=== PATIENT | female | born 1940 | race Caucasian/White ===

== ENCOUNTER 2018-04-11 15:26 | Outpatient (CLI) | payer MEDICARE, OTHER ==
[~2018-04-11] VITALS: Ht 157.5 cm; Wt 110.2 kg
[~2018-04-11 15:26] MED LIST: MECL25TA3 PO
[2018-04-11] MEDS ORDERED: PANT40TA3 PO (15:46)
[2018-04-11] MEDS ORDERED: LISI40TA PO (15:46)
[2018-04-11] MEDS ORDERED: GLIM2TAB PO ×2 (15:46)
[2018-04-11] MEDS ORDERED: ACYC400T PO (15:46)
[2018-04-11] MEDS ORDERED: LIFI1DRO OU (15:46)
[2018-04-11] MEDS ORDERED: MONT10TA24 PO (15:46)
[2018-04-11] MEDS ORDERED: BUSP15TA60 PO (15:46)
[2018-04-11] MEDS ORDERED: RT-ALBUINH IH (15:46)
[2018-04-11] MEDS ORDERED: LEVO100T7 PO (15:46)
[2018-04-11] MEDS ORDERED: SUCR1TAB PO (15:46)
== END 2018-04-11 15:50 ==
LOC: PREOP 15:26
PROVIDERS: ATTEND Surgery
DX: Z01.818 Encounter for other preprocedural examination (principal); Z12.11 Encounter for screening for malignant neoplasm of colon; Z86.010 Personal history of colon polyps; K21.9 Gastro-esophageal reflux disease without esophagitis

== ENCOUNTER 2018-04-12 09:41 | Day surgery (SDC) | payer MEDICARE, OTHER ==
--- NOTE | 2018-04-11 16:47 | History & Physical-Surgical ---
HPO-Surgical History of Present Illness Chief Complaint: This is a 78 year old female who was referred over to us for reflux as well as a history of a hiatal hernia. She reports that she has had symptoms of reflux for years as well as the hiatal hernia. She reports that she has been on Protonix and carafate as well as gaviscon but reports that she will still have symptoms such as epigastric discomfort/pressure sensation, nausea, reflux. She reports that she does try and follow a diet because she is also allergic to numerous things. She reports that she had an upper endoscopy years ago and that was when she was told about her hiatal hernia. She reports that since that time she has had a CT scan in which she reports she was told she had a large hiatal hernia. She also reports a history of colon polyps and her last colonoscopy was several years ago. She denies any family history of colon cancer as well as no red blood per rectum. She does report episodes of diarrhea but reports she has a history of IBS. She also reports that she is overweight and has thought about bariatric surgery. Diagnosis/Surgical Indication: Reflux, Screening colonoscopy, history of polyps. Procedure: EGD and Screening Colonoscopy Date of Surgery: April 12, 2018 Weight (Pounds): 243 Height (Feet): 5 Height (Inches): 2 Allergies and Home Medications Allergies Coded Allergies: Cephalosporins (Unverified Allergy, Unknown, 02/10/15) Iodinated Contrast Media - IV Dye (Unverified Allergy, Unknown, 02/10/15) Sulfa (Sulfonamide Antibiotics) (Unverified Allergy, Unknown, 02/10/15) ampicillin (Unverified Allergy, Unknown, 02/10/15) aspirin (Unverified Allergy, Unknown, 02/10/15) codeine (Unverified Allergy, Unknown, 02/10/15) duloxetine (Unverified Allergy, Unknown, 02/10/15) erythromycin base (Unverified Allergy, Unknown, 02/10/15) ezetimibe (Unverified Allergy, Unknown, 02/10/15) latex (Unverified Allergy, Unknown, 02/10/15) methohexital (Unverified Allergy, Unknown, 02/10/15) nickel (Unverified Allergy, Unknown, 02/10/15) simvastatin (Unverified Allergy, Unknown, 02/10/15) Home Medications Acyclovir 400 Mg Tablet, 400 MG PO BID, (Reported) Albuterol Sulfate 1 Puff Puff, 2 PUFF IH Q4H PRN for SHORTNESS OF BREATH, ( Reported) 1 PUFF = 90 MCG Buspirone HCl Unknown Strength Tablet, 20 MG PO DAILY, (Reported) Glimepiride 2 Mg Tablet, 2 MG PO DAILY, (Reported) Glimepiride 2 Mg Tablet, 4 MG PO HS, (Reported) take 2 (2mg) tabs Levothyroxine Sodium 100 Mcg Tablet, 100 MCG PO DAILY, (Reported) Lifitegrast 1 Each Droperette, 1 DROP OU BID, (Reported) Lisinopril 40 Mg Tablet, 40 MG PO DAILY, (Reported) Meclizine HCl 25 Mg Tablet, 25 MG PO QID PRN for DIZZINESS Prescribed by: RACHEL CATALAN on 01/03/16 0920 Montelukast Sodium 10 Mg Tablet, 10 MG PO DAILY, (Reported) Pantoprazole Sodium 40 Mg Tablet.dr, 40 MG PO DAILY, (Reported) Sucralfate 1 Gm Tablet, 1 GM PO QID, (Reported) Patient Home Medication List Home Medication List Reviewed: Yes Past Qpoqypr-Sbblll-Hkyfqg Hx Patient Social History Alcohol Use: Denies Use Smoking Status: Never a Smoker Immunizations Up To Date Tetanus Booster (TDap): Less than 5yrs Date of Influenza Vaccine: Aug 14, 2014 Surgeries Cardiac, Eye Surgery, Gallbladder, Hysterectomy, Tonsillectomy Cardiovascular Coronary Artery Disease, Heart Murmur, Hypertension, Valvular Heart Disease Neurological Traumatic Brain Injury Gastrointestinal Gastroesophageal Reflux, Hiatal Hernia Musculoskeletal Arthritis Endocrine Endocrine Disorders: Diabetes, Non-Insulin dep Cancer Uterine Family Medical History Significant Family History: Heart Disease Exam Vital Signs Capillary Refill : General Appearance: Alert, Oriented X3, Cooperative, No Acute Distress HEENT: Atraumatic, PERRLA, EOMI, Mucous Memb Moist/[place] Respiratory: Clear to Auscultation, Normal Air Movement Cardiovascular: Regular Rate, No Murmurs Abdominal: Normal Bowel Sounds, Soft, No Tenderness, No Hepatosplenomegaly, No Masses Extremities: No Clubbing, No Cyanosis, No Edema, Normal Pulses, No Tenderness/ Swelling Skin: No Rashes, No Breakdown, No Significant Lesion Neuro: Normal Gait, Normal Speech Psych/Mental Status: Mental Status NL, Mood NL Assessment/Plan Assessment and Plan A 78 year old female with Reflux as well as a history of a hiatal hernia and colon polyps who is in need of an EGD and screening colonoscopy. The risks, benefits, and home care instructions were explained to the patient. Patient verbalized understanding of instructions and agreed to proceed as planned. It was also discussed with patient about possible hiatal hernia repair with antireflux procedure vs a bariatric procedure. It was explained to patient that first we would proceed with the upper and lower endoscopy and if she has a hiatal hernia of significant size then we would need to proceed with an esophageal manometry and then at that time we could discuss the best plan for her should she need surgical intervention. Patient verbalized understanding and at this time we will proceed with an EGD and a screening colonoscopy. Copy Copies To 1: DEEPA CORDERO MD; KM MARINO MD, DUSTIN L APRN April 11, 2018 4:47 pm
[~2018-04-12] VITALS: Ht 157.5 cm; Wt 110.2 kg
[~2018-04-12 09:41] MED LIST changes: +ACYC400T PO; +BUSP15TA60 PO; +GLIM2TAB PO; +LEVO100T7 PO; +LIFI1DRO OU; +LISI40TA PO; +MONT10TA24 PO; +PANT40TA3 PO; +RT-ALBUINH IH; +SUCR1TAB PO
--- OUTSIDE RECORDS SUMMARY | 2018-04-12 09:44 | XMS REPORT | Clinical Summary ---
Author Author [facility] Organization [facility] Address Unknown Phone Unavailable Care Team Providers Care Car Construction Superintendent Name Role Phone Unverified, Unverified Md PCP Unavailable Ayse Yoo DO Unavailable Source Comments Some departments are not documenting in the electronic medical record. If you do not see the information that you expected, contact Release of Information in the Health Information Management department at [phone] for further assistance in locating additional records.[facility] Allergies Active Allergy Reactions Severity Noted Date Comments Adhesive UNKNOWN 11/29/2012 Ampicillin UNKNOWN 11/29/2012 Methohexital UNKNOWN 11/29/2012 Cephalosporins UNKNOWN 11/29/2012 Codeine UNKNOWN 11/29/2012 Iodinated Contrast- Oral UNKNOWN 11/29/2012 And Iv Dye Duloxetine UNKNOWN 11/29/2012 Erythromycin UNKNOWN 11/29/2012 Latex UNKNOWN 11/29/2012 Nickel UNKNOWN 11/29/2012 Simvastatin UNKNOWN 11/29/2012 Sulfa (Sulfonamide UNKNOWN 11/29/2012 Antibiotics) Ezetimibe UNKNOWN 11/29/2012 Current Medications Prescription Sig. Disp. Refills Start End Date Status Date albuterol (VENTOLIN HFA, Inhale 2 Puffs by mouth Active PROAIR HFA) 90 every 6 hours as needed. mcg/actuation inhaler albuterol-ipratropium Inhale 3 mL solution as Active (DUONEB) 0.5 mg-3 mg(2.5 directed four times mg base)/3 mL nebulizer daily. solution busPIRone (BUSPAR) 10 mg Take 10 mg by mouth three Active tablet times daily. cholecalciferol (Vitamin Take 1,000 Units by mouth Active D3) (VITAMIN D-3) 1,000 daily. units tablet COLESEVELAM HCL Take 3 Tabs by mouth Active (COLESEVELAM PO) twice daily. fluticasone-salmeterol Inhale 1 Puff by mouth Active (ADVAIR DISKUS) 250-50 daily. mcg inhalation disk fluticasone-salmeterol Inhale 1 Puff by mouth Active (ADVAIR DISKUS) 500-50 every 12 hours. mcg inhalation disk HYOSCYAMINE SULFATE Take 0.125 mg by mouth as Active (HYOSYNE PO) Needed. 1-2 tabs levothyroxine Take 100 mcg by mouth Active (LEVOTHROID) 100 mcg daily. tablet lisinopril (PRINIVIL, Take 40 mg by mouth Active ZESTRIL) 40 mg tablet daily. metFORMIN (GLUCOPHAGE) Take 250 mg by mouth Active 500 mg tablet twice daily with meals. montelukast (SINGULAIR) Take 10 mg by mouth at Active 10 mg tablet bedtime daily. Omalizumab (XOLAIR) 150 Inject 300 mg into Active mg SolR area(s) as directed every [address] Take 40 mg by mouth Active (PROTONIX) 40 mg tablet daily. sucralfate (CARAFATE) 1 Take 1 g by mouth every 6 Active gram tablet hours. Active Problems Problem Noted Date Asthma 11/29/2012 Atopic dermatitis 11/29/2012 Allergic rhinitis 11/29/2012 Family History Medical History Relation Name Comments Coronary Artery Disease Brother Coronary Artery Disease Father Cancer Mother lung cancer Relation Name Status Comments Brother Father Mother Social History Tobacco Use Types Packs/Day Years Used Date Never Smoker Alcohol Use Drinks/Week oz/Week Comments No Sex Assigned at Date Recorded Not on file Last Filed Vital Signs Vital Sign Reading Time Taken Blood Pressure 124/64 11/29/2012 1:28 PM CHART CHANGER Pulse 87 11/29/2012 1:28 PM CHART CHANGER Temperature 36.7 C (98 F) 11/29/2012 1:28 PM CHART CHANGER Respiratory Rate 18 11/29/2012 1:28 PM CHART CHANGER Oxygen Saturation 96% 11/29/2012 1:28 PM CHART CHANGER Inhaled Oxygen - - Concentration Weight 117.5 kg (259 lb) 11/29/2012 1:28 PM CHART CHANGER Height 154.9 cm (5' 1") 11/29/2012 1:28 PM CHART CHANGER Body Mass Index 48.94 11/29/2012 1:28 PM CHART CHANGER Plan of Treatment Health Maintenance Due Date Last Done Comments PHYSICAL (COMPREHENSIVE) 1947 EXAM PERTUSSIS VACCINE 1953 TETANUS VACCINE 1959 SHINGLES VACCINE 2002 OSTEOPOROSIS SCREENING 2007 PNEUMONIA (PCV13/PPSV23) 2007 VACCINES (1 of 2 - PCV13) INFLUENZA VACCINE 08/14/2018 Results Not on filefrom Last 3 Months
--- OUTSIDE RECORDS SUMMARY | 2018-04-12 09:44 | XMS REPORT ---
Author Author LELE PORTILLO Organization [employer] Address Unknown Phone Unavailable Care Team Providers Care Director Of Student Life Name Role Phone LELE PORTILLO Unavailable Allergies No Known Allergies Problems Problem Type Condition Code Onset Dates Condition Status Problem Major depressive disorder, recurrent episode, moderate F33.1 Active Assessment Generalized anxiety disorder F41.1 Active Problem Generalized anxiety disorder F41.1 Active Assessment Major depressive disorder, recurrent episode, moderate F33.1 Active Medications No Known Medications Procedures Procedure Coding System Code Date Psychotherapy, patient &/family, 45 minutes, established patient CPT-4 75105 March 15, 2016 [facility] VISIT MENTAL HEALTH ESTAB PT CPT-4 G0470 March 15, 2016 Results No Known Results Summary Purpose [employer] Submission
--- OUTSIDE RECORDS SUMMARY | 2018-04-12 09:44 | XMS REPORT ---
Author Author LELE PORTILLO Organization [employer] Address Unknown Phone Unavailable Care Team Providers Care Escape Wheel Tooth Cutter Name Role Phone LELE PORTILLO Unavailable Allergies [...] patient &/family, 45 minutes, established patient CPT-4 69376 Jun 28, 2016 [facility] VISIT MENTAL HEALTH ESTAB PT CPT-4 G0470 Jun 28, 2016 Results No Known Results Summary Purpose [employer] Submission
--- OUTSIDE RECORDS SUMMARY | 2018-04-12 09:44 | XMS REPORT ---
Author Author LELE PORTILLO Organization [employer] Address Unknown Phone Unavailable Care Team Providers Care Clinical Writer Name Role Phone LELE PORTILLO Unavailable Allergies [...] patient &/family, 45 minutes, established patient CPT-4 32347 March 01, 2016 [facility] VISIT MENTAL HEALTH ESTAB PT CPT-4 G0470 March 01, 2016 Results No Known Results Summary Purpose [employer] Submission
--- OUTSIDE RECORDS SUMMARY | 2018-04-12 09:45 | XMS REPORT | Continuity of Care Document ---
Author Author [facility] Organization [facility] Address Unknown Phone Unavailable Allergies Active Description Code Type Severity Reaction Onset Reported/Identified Relationship to Patient Clinical Status Yes CODEINE SULFATE UNKNOWN UNKNOWN Yes HEXACHLOROPHENE ANALOGUES UNKNOWN UNKNOWN Yes KEFLEX UNKNOWN UNKNOWN Yes PENICILLINS UNKNOWN UNKNOWN Yes [id number] REDUCTASE INHIBITORS UNKNOWN OTHER Yes SULFA (SULFONAMIDE ANTIBIOTICS) UNKNOWN UNKNOWN Yes ampicillin [id number] Drug Allergy Unknown N/A 02/10/2015 Yes aspirin [id number] Drug Allergy Unknown N/A 02/10/2015 Yes Cephalosporins [id number] Drug Allergy Unknown N/A 02/10/2015 Yes codeine [id number] Drug Allergy Unknown N/A 02/10/2015 Yes duloxetine [id number] Drug Allergy Unknown N/A 02/10/2015 Yes erythromycin base [id number] Drug Allergy Unknown N/A 02/10/2015 Yes ezetimibe [id number] Drug Allergy Unknown N/A 02/10/2015 Yes Iodinated Contrast Media - IV Dye [id number] Drug Allergy Unknown N/A 02/10 Yes Iodinated Contrast- Oral and IV Dye [id number] Drug Allergy Unknown N/A Yes latex [id number] Drug Allergy Unknown N/A 02/10/2015 Yes methohexital [id number] Drug Allergy Unknown N/A 02/10/2015 Yes nickel [id number] Drug Allergy Unknown N/A 02/10/2015 Yes simvastatin [id number] Drug Allergy Unknown N/A 02/10/2015 Yes Sulfa (Sulfonamide Antibiotics) [id number] Drug Allergy Unknown N/A 2014 Medications There is no data. Problems Date Dx Coded Attending Type Code Diagnosis Diagnosed By 02/10/2015 HUMPHREY CHESTER, KIRA Scherer Ot 414.00 02/10/2015 KIRA YIN MD Ot 424.1 02/10/2015 HUMPHREY CHESTER, KIRA Scherer Ot 786.09 02/10/2015 HUMPHREY CHESTER, KIRA Scherer Ot 786.50 02/10/2015 LEANDRA CHESTER, BRIANA Schaefer Ot 414.01 02/10/2015 LEANDRA CHESTER, BRIANA T Ot 723.0 02/10/2015 LEANDRA CHESTER, BRIANA T Ot 724.1 02/10/2015 LEANDRA CHESTER, BRIANA T Ot 786.59 10/11/2015 JAMILA CHESTER, KM L Ot G47.33 10/11/2015 JAMILA CHESTER, KM L Ot G47.61 01/03/2016 HOSSEIN CHESTER, RACHEL Beltran Ot H83.09 01/03/2016 HOSSEIN CHESTER, RACHEL A Ot J01.80 01/03/2016 HOSSEIN CHESTER, RACHEL A Ot R42 04/21/2017 KM MARINO 723.1 CERVICALGIA 04/21/2017 KM MARINO 723.4 BRACHIAL NEURITIS OR RADICULITIS NOS 04/21/2017 KM MARINO M54.12 RADICULOPATHY, CERVICAL REGION 04/21/2017 KM MARINO M54.2 CERVICALGIA 02/15/2018 KM MARINO 250.00 DIABETES MELLITUS WITHOUT MENTION OF COMPLICATION, TYPE II OR UNSPECIFIED TYPE , NOT STATED UNCONTROLLED 02/15/2018 KM MARINO 401.0 MALIGNANT ESSENTIAL HYPERTENSION 02/15/2018 KM MARINO E11.9 TYPE 2 DIABETES MELLITUS WITHOUT COMPLICATIONS 02/15/2018 KM MARINO I10 ESSENTIAL (PRIMARY) HYPERTENSION 02/15/2018 KM MARINO V70.0 ROUTINE GENERAL MEDICAL EXAMINATION AT A HEALTH CARE FACILITY 02/15/2018 KM MARINO Z00.00 ENCOUNTER FOR GENERAL ADULT MEDICAL EXAMINATION WITHOUT ABNORMAL FINDINGS 02/15/2018 KM MARINO 250.00 DIABETES MELLITUS WITHOUT MENTION OF COMPLICATION, TYPE II OR UNSPECIFIED TYPE , NOT STATED UNCONTROLLED 02/15/2018 KM MARINO 401.0 MALIGNANT ESSENTIAL HYPERTENSION 02/15/2018 KM MARINO E11.9 TYPE 2 DIABETES MELLITUS WITHOUT COMPLICATIONS 02/15/2018 KM MARINO I10 ESSENTIAL (PRIMARY) HYPERTENSION 02/15/2018 KM MARINO V70.0 ROUTINE GENERAL MEDICAL EXAMINATION AT A HEALTH CARE FACILITY 02/15/2018 KM MARINO Z00.00 ENCOUNTER FOR GENERAL ADULT MEDICAL EXAMINATION WITHOUT ABNORMAL FINDINGS 02/15/2018 KM MARINO 250.00 DIABETES MELLITUS WITHOUT MENTION OF COMPLICATION, TYPE II OR UNSPECIFIED TYPE , NOT STATED UNCONTROLLED 02/15/2018 KM MARINO 401.0 MALIGNANT ESSENTIAL HYPERTENSION 02/15/2018 KM MARINO E11.9 TYPE 2 DIABETES MELLITUS WITHOUT COMPLICATIONS 02/15/2018 KM MARINO I10 ESSENTIAL (PRIMARY) HYPERTENSION 02/15/2018 KM MARINO V70.0 ROUTINE GENERAL MEDICAL EXAMINATION AT A HEALTH CARE FACILITY 02/15/2018 KM MARINO Z00.00 ENCOUNTER FOR GENERAL ADULT MEDICAL EXAMINATION WITHOUT ABNORMAL FINDINGS Procedures There is no data. Results Test Result Range Comprehensive Metabolic Panel - 12/13/16 10:50 Albumin 4.1 g/dL 3.6-5.1 ALP 64 U/L 35-130 ALT 19 U/L 6-45 Anion Gap 16 6-14 AST 16 U/L 2-40 BUN 21 mg/dL 5-25 Calcium 9.2 mg/dL 8.3-10.4 Chloride 108 mmol/L 95-114 CO2 24 mEq/L 22-33 Creat 1.00 mg/dL 0.50-1.50 eGFR 54 mL/min/1.73m2 >59 Globulin 2.4 g/dL 2.3-3.5 Glucose 120 mg/dL 70-110 Osmo 299 280-295 Potassium 4.5 mmol/L 3.5-5.3 Sodium 143 mmol/L 134-148 TBil 0.5 mg/dL 0.2-1.2 TP 6.5 g/dL 6.0-8.3 Thyroid Stimulating Hormone - 06/13/17 10:25 TSH 1.07 mIU/mL 0.32-5.00 Microalbumin - 02/15/18 10:00 Microalb 29.0 mg/L 0.0-20.0 Encounters ACCT No. Visit Date/Time Discharge Status Pt. Type Provider Facility Loc./Unit Complaint [id number] 09/07/2017 12:25:00 09/07/2017 23:59:59 CLS Preadmit ASHOK CHESTER, ZAKIYA Beaver [facility] RAD LUMBAR SPONDYLOSIS W/ RADICULOPATHY [id number] 01/03/2016 07:48:00 01/03/2016 09:23:00 DIS Emergency HOSSEIN CHESTER, RACHEL A [facility] ER [id number] 10/10/2015 21:05:00 10/11/2015 05:52:00 DIS Outpatient JAMILA CHESTER, KM Marx [facility] SLEEP [id number] 02/10/2015 07:46:00 02/10/2015 14:22:00 DIS Emergency LEANDRA CHESTER, BRIANA Schaefer [facility] ER [id number] 01/29/2014 09:46:00 01/29/2014 23:59:59 CLS Outpatient HUMPHREY CHESTER, KIRA Scherer [facility] CARD [id number] 03/27/2018 15:00:00 03/27/2018 23:59:59 CLS Outpatient LIZBETH [facility] [id number] 02/15/2018 13:31:00 02/15/2018 23:59:00 DIS Outpatient KM MARINO [id number] 10/04/2017 13:36:00 10/04/2017 23:59:00 DIS Outpatient EDWIN DE LEON [id number] 04/27/2017 00:00:00 06/14/2017 09:45:00 DIS Outpatient KM MARINO [id number] 06/13/2017 10:50:00 06/13/2017 23:59:00 DIS Outpatient KM MARINO [id number] 04/22/2017 10:38:00 04/22/2017 23:59:00 DIS Outpatient KM MARINO [id number] 12/17/2016 09:03:00 12/17/2016 23:59:00 DIS Outpatient KM MARINO [id number] 12/13/2016 13:53:00 12/13/2016 23:59:00 DIS Outpatient KM MARINO [id number] 12/03/2016 10:30:00 12/03/2016 23:59:00 DIS Outpatient Isabel Muñoz
--- OUTSIDE RECORDS SUMMARY | 2018-04-12 09:45 | XMS REPORT ---
Author Author LELE PORTILLO Organization [employer] Address Unknown Phone Unavailable Care Team Providers Care Pier Worker Name Role Phone LELE PORTILLO Unavailable Allergies No Known Allergies Problems Problem Type Condition Code Onset Dates Condition Status Problem Major depressive disorder, recurrent episode, moderate F33.1 Active Assessment Generalized anxiety disorder F41.1 Active Problem Generalized anxiety disorder F41.1 Active Assessment Major depressive disorder, recurrent episode, moderate F33.1 Active Medications No Known Medications Procedures Procedure Coding System Code Date Psychotherapy, patient &/family, 30 minutes, established patient CPT-4 69972 May 24, 2016 [facility] VISIT MENTAL HEALTH ESTAB PT CPT-4 G0470 May 24, 2016 Results No Known Results Summary Purpose [employer] Submission
[2018-04-12] MEDS ORDERED: LACTATED RINGERS 1,000 ML IV ONE (10:11)
[2018-04-12] MEDS ORDERED: MIDAZOLAM 2 MG/2 ML (VERSED) VIAL ONE (10:27)
[2018-04-12] MEDS ORDERED: PROPOFOL INJECTION 50 ML IV ONE ×2 (10:27→11:33)
[2018-04-12] MEDS ORDERED: LIDOCAINE JELLY 2% (XYLOCAINE) 5 ML TUBE ONE (11:13)
[2018-04-12] MEDS ORDERED: LACTATED RINGERS 1,000 ML IV STA (11:14)
[2018-04-12] MEDS ORDERED: LIDOCAINE JELLY 2% (XYLOCAINE) 5 ML TUBE MM PRN (11:15)
[2018-04-12 11:21] VITALS: BP 148/79
--- NOTE | 2018-04-12 11:57 | Progress Note-Pre Operative ---
Pre-Operative Progress Note H&P Reviewed The H&P was reviewed, patient examined and no changes noted. Date Seen by Provider: April 12, 2018 Time Seen by Provider: 10:30 Date H&P Reviewed: April 12, 2018 Time H&P Reviewed: 10:30 Pre-Operative Diagnosis: GERD, hx of polyps DEEPA CORDERO MD April 12, 2018 11:57 am
--- NOTE | 2018-04-12 12:02 | Progress Note-Post Operative ---
Post-Operative Progess Note Surgeon (s)/Cutter Gas (s) Surgeon DEEPA CORDERO MD Cutter Gas: none Pre-Operative Diagnosis GERD, hx of polyps Post-Operative Diagnosis reflux esophagitis(class B), HH(2cm), moderate gastritis. 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 Procedure & Operative Findings Date of Procedure 04/12/18 Procedure Performed/Findings EGD with bx. Colonoscopy with bx. Anesthesia Type MAC Estimated Blood Loss Estimated blood loss (mL): minimal Specimens/Packing Specimens Removed GE jxn, antrum, asc colon polyp x2 DEEPA CORDERO MD April 12, 2018 12:02 pm
[2018-04-12 12:05] VITALS: BP 110/60
--- NOTE | 2018-04-12 12:05 | Discharge Inst-Surgical ---
D/C Lap Instructions-KIDO New, Converted, or Re-Newed RX: RX on Chart Follow Up Appt in 2 weeks Activity as tolerated High Fiber Diet 25g or more per day Avoid Alcohol, Caffeine, Spicy [place] and Acid foods. Drink 64 fluid oz or more of fluids per day. Symptoms to Report: Fever over 101 degree F, Nausea/Vomiting If any problems/questions: Contact your physician or go to Emergency Room DEEPA CORDERO MD April 12, 2018 12:05 pm
[2018-04-12 12:35] VITALS: BP 152/64
[2018-04-12 12:46] VITALS: BP 152/64
--- NOTE | 2018-04-12 19:04 | OPERATIVE REPORT ---
DATE OF SERVICE: 04/12/2018 ATTENDING PRIMARY PHYSICIAN: Dr. Iris Olivier. PREOPERATIVE DIAGNOSES: Gastroesophageal reflux disease, dysphagia, history of colon polyps. POSTOPERATIVE DIAGNOSES: Reflux esophagitis class B, small hiatal hernia approximately 2 cm in size, moderate severity gastritis, chronic stage III external and internal hemorrhoids, two hyperplastic polyps of the ascending colon. PROCEDURE: EGD with biopsy, colonoscopy with biopsy. SURGEON: Dr. Cordero. ANESTHESIA: Monitored anesthesia care. ESTIMATED BLOOD LOSS: Minimal. FINDINGS: EGD: Reflux esophagitis class B, [id number] size hiatal hernia approximately 2 cm in size. There was a moderate gastritis. No ulcers identified. Pylorus and duodenum appeared normal with no distal obstructions. Colonoscopy: Chronic stage III external and internal hemorrhoids, which were not actively bleeding. Normal sphincter tone was felt and there were no palpable masses. DISPOSITION: The patient tolerated the procedure well. INDICATIONS: The patient is a 78-year-old female who has had multiple gastrointestinal issues in the past. She reports that she has had issues with reflux and regurgitation for many years. She reports that she accidentally ingested some form of hat cleaner many years ago and I did have an EGD at the time. She reports that after the incident, which was many years ago she does not report any major issues with dysphagia or difficulty swallowing solid foods that would indicate a stricture. She does report continued reflux; however, does have occasional episodes of epigastric fullness sensation after food bolus. She states that she was told that she had a hiatal hernia based on radiographic imaging even as recently as one year ago. She also has a history of colon polyps with the several colonoscopies done in the past, which did show polyps, however, all benign. PAST MEDICAL HISTORY: Hypertension, diabetes, degenerative joint disease, hypothyroid, gastroesophageal reflux disease, sleep apnea. PAST SURGERIES: Tonsillectomy, right eye surgery, laparoscopic cholecystectomy in 2011, total hysterectomy and appendectomy in 1998, ganglion cyst excision. ALLERGIES: AMPICILLIN, CODEINE, ERYTHROMYCIN, SIMVASTATIN, ASPIRIN, CEPHALOSPORIN, SULFA, RADIOACTIVE IODINE, CONTRAST DYES, BREVITAL, LATEX, NICKEL TAPE, ZETIA, CYMBALTA. MEDICATIONS: Buspirone 20 mg daily, levothyroxine 0.1 mg daily, lisinopril 40 mg daily, glimepiride 2 mg q.a.m. and 4 mg q.p.m., Singulair 10 mg daily, Protonix 40 mg daily, acyclovir 400 mg b.i.d., sucralfate 1 gram q.i.d., Xiidra drop b.i.d. daily, albuterol p.r.n., hyoscyamine p.r.n., Gaviscon p.r.n., Lomotil p.r.n. SOCIAL HISTORY: Negative smoke, negative alcohol. FAMILY HISTORY: Mother with a lung cancer. Father, myocardial infarction. Brother, myocardial infarction. DESCRIPTION OF PROCEDURE: The patient was brought to the endoscopy suite, laid in the left lateral decubitus position. After adequate IV pain and sedating medications and monitored anesthesia care, the mouthpiece was applied. The endoscope was then placed in the mouth visualizing the pharynx and hypopharyngeal region. Vocal cords, epiglottis and vallecula identified and appeared to be normal. Endoscope was gently intubated into the esophageal opening and esophagus insufflated. The endoscope was then advanced to the first, second and third portion of the esophagus at the level of the GE junction, a reflux esophagitis class B identified. There were no ulcers or strictures identified throughout the esophagus or the GE junction. A biopsy was taken of the GE junction with forceps with visualization of good hemostasis. The endoscope was then advanced into the stomach and endoscope retroflexed, visualizing a small to moderate size hiatal hernia approximately 2 cm in size. There was moderate severity gastritis with no ulcerations identified. A biopsy was taken of the stomach antrum with visualization of good hemostasis. The endoscope was then advanced to the pylorus and the first and second portion of the duodenum, which appeared normal with no distal obstructions. The endoscope was slowly withdrawn by taking a second look and suctioning residual air and no additional findings. The patient tolerated the procedure well. We will recommend continued medical management with the necessary lifestyle and diet accommodation including small and more frequent meals, avoidance of eating at night as well as head elevation while lying supine. She also needs to avoid caffeinated beverages, spicy, greasy and acidic foods. We will await the biopsy results as well to rule out H. pylori. If she continues to be symptomatic with reflux, she may be a candidate for hiatal hernia repair. However, due to her body habitus, there would be a high reoccurrence rate. She may benefit from a hiatal hernia repair as well as a gastric sleeve resection. Under the same anesthesia, we then proceeded with the colonoscopy portion of the procedure. A digital rectal examination was performed, which revealed chronic stage III external and internal hemorrhoids, where no active bleeding identified. Normal sphincter tone was felt and there were no palpable masses. The endoscope was then intubated. The anus and rectum gently insufflated. The endoscope was then advanced through the valves adhesed the rectum with no polyps or any neoplasms identified. We then proceeded through the sigmoid colon where no diverticulosis identified. The endoscope was then advanced to the main of the descending, transverse and ascending colon. At the proximal ascending colon, 2 small hyperplastic polyps each approximately 2 mm in size were identified. These were biopsied and started using forceps and electrocautery with visualization of good hemostasis. The endoscope was then advanced to the cecum, which was normal. The endoscope was then slowly withdrawn taking a second look and suctioning residual air with no additional findings. The patient tolerated the procedure well. We will recommend continued medical management with a high fiber diet with at least 25 grams to 30 grams of fiber per day as well as at least 64. fluid ounces of water daily to promote soft stools on a daily basis. She does not have any family history of colon cancer and these appear to be benign hyperplastic polyps. If these are confirmed by pathology, she may wait approximately 10 years for her next colonoscopy. Job ID: [id number] DocumentID: [id number] Dictated Date: 04/12/2018 12:22:41 [employer] Date: 04/12/2018 19:04:01 Dictated By: DEEPA CORDERO MD MTDC[facility]
== END 2018-04-12 13:24 | disposition home or self-care (01) ==
LOC: SDC 09:41
PROVIDERS: ATTEND Surgery
DX: Z12.11 Encounter for screening for malignant neoplasm of colon (principal); K63.5 Polyp of colon; K21.0 Gastro-esophageal reflux disease with esophagitis; K44.9 Diaphragmatic hernia without obstruction or gangrene; K29.70 Gastritis, unspecified, without bleeding; K64.2 Third degree hemorrhoids; I10 Essential (primary) hypertension; E11.9 Type 2 diabetes mellitus without complications; E03.9 Hypothyroidism, unspecified; G47.33 Obstructive sleep apnea (adult) (pediatric); I25.10 Atherosclerotic heart disease of native coronary artery without angina pectoris; J45.909 Unspecified asthma, uncomplicated; Z79.84 Long term (current) use of oral hypoglycemic drugs; Z79.899 Other long term (current) drug therapy; Z87.820 Personal history of traumatic brain injury
CPT/HCPCS: 43239; G0105; 82962; 88305

== ENCOUNTER 2019-06-11 19:27 | Emergency (ER) | payer MEDICARE, OTHER ==
[~2019-06-11] VITALS: Ht 157.5 cm; Wt 110.2 kg
[2019-06-11] MEDS ORDERED: ACETAMINOPHEN 325 MG TABLET PO ONE (19:45)
--- NOTE | 2019-06-11 19:50 | ED Chest Pain ---
General Stated Complaint: CP History of Present Illness Date Seen by Provider: Jun 11, 2019 Time Seen by Provider: 19:30 Initial Comments 79-year-old female presents with substernal chest, shortness of air with exertion and history of asthma, over the last 2-3 days, intermittently, Currently rates her pain 3/10. She has had previous heart catheterizations but no sense of been placed no history of LA. She is allergic to aspirin. She has a significant family history for MIs and stent placement. She denies any nausea or vomiting, diaphoresis or weakness. She is a type II diabetic her glucose was in the 90s yesterday. 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: No Associated Symptoms: No back pain, No diaphoresis, No dizziness, No edema; fatigue; No fever/chills, No headache, No heartburn, No nausea/vomiting, No rash; shortness of breath; No swelling/lump in chest, No syncope, No weakness Allergies and Home Medications Allergies Coded Allergies: Cephalosporins (Unverified Allergy, Unknown, 02/10/15) Iodinated Contrast- Oral and IV Dye (Unverified Allergy, Unknown, 02/10/15) Sulfa (Sulfonamide Antibiotics) (Unverified Allergy, Unknown, 02/10/15) ampicillin (Unverified Allergy, Unknown, 02/10/15) aspirin (Unverified Allergy, Unknown, 02/10/15) codeine (Unverified Allergy, Unknown, 02/10/15) duloxetine (Unverified Allergy, Unknown, 02/10/15) erythromycin base (Unverified Allergy, Unknown, 02/10/15) ezetimibe (Unverified Allergy, Unknown, 02/10/15) latex (Unverified Allergy, Unknown, 02/10/15) methohexital (Unverified Allergy, Unknown, 02/10/15) nickel (Unverified Allergy, Unknown, 02/10/15) simvastatin (Unverified Allergy, Unknown, 02/10/15) Home Medications Acyclovir 400 Mg Tablet, 400 MG PO BID, (Reported) Albuterol Sulfate 1 Puff Puff, 2 PUFF IH Q4H PRN for SHORTNESS OF BREATH, (R eported) 1 PUFF = 90 MCG Buspirone HCl Unknown Strength Tablet, 20 MG PO DAILY, (Reported) Glimepiride 2 Mg Tablet, 2 MG PO DAILY, (Reported) Glimepiride 2 Mg Tablet, 4 MG PO HS, (Reported) take 2 (2mg) tabs Levothyroxine Sodium 100 Mcg Tablet, 100 MCG PO DAILY, (Reported) Lifitegrast 1 Each Droperette, 1 DROP OU BID, (Reported) Lisinopril 40 Mg Tablet, 40 MG PO DAILY, (Reported) Meclizine HCl 25 Mg Tablet, 25 MG PO QID PRN for DIZZINESS Prescribed by: RACHEL CATALAN on 01/03/16 0920 Montelukast Sodium 10 Mg Tablet, 10 MG PO DAILY, (Reported) Pantoprazole Sodium 40 Mg Tablet.dr, 40 MG PO DAILY, (Reported) Sucralfate 1 Gm Tablet, 1 GM PO QID, (Reported) Patient Home Medication List Home Medication List Reviewed: Yes Review of Systems Review of Systems Constitutional: no symptoms reported, see HPI Respiratory: See HPI, SOA With Exertion Gastrointestinal: See HPI; Denies Diarrhea, Denies Nausea, Denies Poor Appetite Skin: no symptoms reported, see HPI All Other Systems Reviewed Negative Unless Noted: Yes Past Yctwfgt-Opezeo-Xslaib Hx Past Med/Social Hx: Reviewed Nursing Past Med/Soc Hx Patient Social History Recent Foreign Travel: No Contact w/Someone Who Travel: No Recent Hopitalizations: No Immunizations Up To Date Tetanus Booster (TDap): Less than 5yrs Date of Influenza Vaccine: Aug 14, 2014 Seasonal Allergies Seasonal Allergies: Yes Past Medical History Adenoidectomy, Appendectomy, Cardiac, Eye Surgery, Gallbladder, Hysterectomy, Tonsillectomy Asthma, Sleep Apnea Currently Using CPAP: Yes Coronary Artery Disease, Heart Murmur, Hypertension, Valvular Heart Disease Traumatic Brain Injury [employer]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 0.0oz. 110.759515mt; 44.4 BMI Method:Stated General Appearance: No Apparent Distress, WD/WN, Obese HEENT: PERRL/EOMI, TMs Normal, Normal ENT Inspection, Pharynx Normal, Moist Mucous Membranes Neck: Full Range of Motion, Normal Inspection, Non Tender, Supple Respiratory: Chest Non Tender, Lungs Clear, Normal Breath Sounds Cardiovascular: Regular Rate, Rhythm, No Edema, No Murmur, Normal Peripheral Pulses Gastrointestinal: Normal Bowel Sounds, Non Tender, Soft Extremity: Normal Capillary Refill, Normal Inspection, Normal Range of Motion, No Calf Tenderness Neurologic/Psychiatric: Alert, Oriented x3, No Motor/Sensory Deficits, Normal Mood/Affect Skin: Normal Color, Warm/Dry Lymphatic: No Adenopathy Progress/Results/Core Measures Results/Orders Lab Results Laboratory Tests Test 06/11/19 19:47 Range/Units White Blood Count 6.6 4.3-11.0 10^3/uL Red Blood Count 5.14 4.35-5.85 10^6/uL Hemoglobin 13.8 11.5-16.0 G/DL Hematocrit 44 35-52 % Mean Corpuscular Volume 85 80-99 FL Mean Corpuscular Hemoglobin 27 25-34 PG Mean Corpuscular Hemoglobin Concent 32 32-36 G/DL Red Cell Distribution Width 14.4 10.0-14.5 % Platelet Count 163 130-400 10^3/uL Mean Platelet Volume 10.3 7.4-10.4 FL Neutrophils (%) (Auto) 66 42-75 % Lymphocytes (%) (Auto) 20 12-44 % Monocytes (%) (Auto) 10 0-12 % Eosinophils (%) (Auto) 3 0-10 % Basophils (%) (Auto) 1 0-10 % Neutrophils # (Auto) 4.3 1.8-7.8 X 10^3 Lymphocytes # (Auto) 1.3 1.0-4.0 X 10^3 Monocytes # (Auto) 0.7 0.0-1.0 X 10^3 Eosinophils # (Auto) 0.2 0.0-0.3 10^3/uL Basophils # (Auto) 0.1 0.0-0.1 10^3/uL Prothrombin Time 12.5 12.2-14.7 SEC INR Comment 0.9 0.8-1.4 Activated Partial Thromboplast Time 28 24-35 SEC Sodium Level 141 135-145 MMOL/L Potassium Level 4.0 3.6-5.0 MMOL/L Chloride Level 105 98-107 MMOL/L Carbon Dioxide Level 23 21-32 MMOL/L Anion Gap 13 5-14 MMOL/L Blood Urea Nitrogen 19 H 7-18 MG/DL Creatinine 0.89 0.60-1.30 MG/DL Estimat Glomerular Filtration Rate > 60 BUN/Creatinine Ratio 21 Glucose Level 105 70-105 MG/DL Calcium Level 9.9 8.5-10.1 MG/DL Corrected Calcium 9.7 8.5-10.1 MG/DL Magnesium Level 2.2 1.8-2.4 MG/DL Total Bilirubin 0.6 0.1-1.0 MG/DL Aspartate Amino Transf (AST/SGOT) 15 5-34 U/L Alanine Aminotransferase (ALT/SGPT) 16 0-55 U/L Alkaline Phosphatase 62 40-136 U/L Myoglobin 47.6 10.0-92.0 NG/ML Troponin I < 0.028 <0.028 NG/ML Total Protein 6.9 6.4-8.2 GM/DL Albumin 4.2 3.2-4.5 GM/DL My Orders Orders - JOHNNY MATHEWS Cbc With Automated Diff (06/11/19 19:44) Magnesium (06/11/19 19:44) Ekg Tracing (06/11/19 19:44) Cardiac Profile 1 (06/11/19 19:44) Comprehensive Metabolic Panel (06/11/19 19:44) Myoglobin Serum (06/11/19 19:44) Protime With Inr (06/11/19 19:44) Partial Thromboplastin Time (06/11/19 19:44) O2 (06/11/19 19:44) Monitor-Rhythm Ecg Trace Only (06/11/19 19:44) Ed Iv/Invasive Line Start (06/11/19 19:44) Chest Pa/Lat (2 View) (06/11/19 19:44) Acetaminophen Tablet/Caplet (Tylenol T (06/11/19 19:45) Progress Progress Note : Time: 19:30 Progress Note She was seen and evaluated, will obtain labs, EKG, chest x-ray and Tylenol 650 mg orally. She cannot take aspirin. She did see Dr. 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 2015 patient reports her symptoms are improving, reviewed labs, cxr, and EKG with her and reassured that they do not indicate an acute cardiac event. 2054 Temp 97.6. Patient denies chest pain or SOA. Discharge instructions and return precautions reviewed with the patient. She will keep her cardiology appointment tomorrow. Initial ECG Impression Date: Jun 11, 2019 Initial ECG Impression Time: 19:35 Initial ECG Rate: 84 Initial ECG Rhythm: Normal Sinus Initial ECG Intervals WA 180, QRSD 148, QT 436, QTC 516. [place] P 69, QRS -74, T 74. Initial ECG Impression: Normal Initial ECG Comparisson: Unchanged (from 2014) Departure Impression Primary Impression: Non-cardiac chest pain Disposition: HOME, SELF-CARE Condition: Improved Departure-Patient Inst. Decision time for Depature: 20:55 Referrals: KM MARINO MD (PCP/Family) Primary Care Physician Patient Instructions: Chest Pain That Is Not Caused by the Heart (DC) Add. Discharge Instructions: Keep your scheduled appointment with cardiology for tomorrow. Take records from [facility]. Activity as tolerated. Continue your home medications. Return to emergency department for chest pain, difficulty breathing, or new urgent concerns. Copy Copies To 1: KM MARINO MD, AMY ARNP Jun 11, 2019 19:50
[2019-06-11 19:56] LABS: BASOPHILS # (AUTO) 0.1 10^3/uL (0.0-0.1); BASOPHILS % (AUTO) 1 % (0-10); EOSINOPHILS # (AUTO) 0.2 10^3/uL (0.0-0.3); EOSINOPHILS % (AUTO) 3 % (0-10); HEMATOCRIT 44 % (35-52); HEMOGLOBIN 13.8 G/DL (11.5-16.0); LYMPHOCYTES # (AUTO) 1.3 X 10^3 (1.0-4.0); LYMPHOCYTES % (AUTO) 20 % (12-44); MEAN CORPUSCULAR HEMOGLOBIN 27 PG (25-34); MEAN CORPUSCULAR HGB CONC 32 G/DL (32-36); MEAN CORPUSCULAR VOLUME 85 FL (80-99); MEAN PLATELET VOLUME 10.3 FL (7.4-10.4); MONOCYTES # (AUTO) 0.7 X 10^3 (0.0-1.0); MONOCYTES % (AUTO) 10 % (0-12); NEUTROPHILS # (AUTO) 4.3 X 10^3 (1.8-7.8); NEUTROPHILS % (AUTO) 66 % (42-75); PLATELET COUNT 163 10^3/uL (130-400); RED CELL DISTRIBUTION WIDTH 14.4 % (10.0-14.5); WHITE BLOOD COUNT 6.6 10^3/uL (4.3-11.0)
[2019-06-11 20:05] LABS: INR 0.9 (0.8-1.4); PROTHROMBIN TIME PATIENT 12.5 SEC (12.2-14.7)
--- NOTE | 2019-06-11 20:06 | Diagnostic Imaging Report ---
INDICATION: Chest pain FINDINGS: The heart is enlarged. There is some mild vascular congestion and vague pulmonary opacities suggesting mild edema. There is no definite pleural fluid or pneumothorax. IMPRESSION: Increased heart size, vessel caliber and likely mild perihilar edema suggest development of failure pattern. Dictated by: Dictated on workstation # [id number]
[2019-06-11 20:13] LABS: ALANINE AMINOTRANSFERASE 16 U/L (0-55); ALBUMIN 4.2 GM/DL (3.2-4.5); ALKALINE PHOSPHATASE 62 U/L (40-136); BILIRUBIN,TOTAL 0.6 MG/DL (0.1-1.0); BUN/CREATININE RATIO 21; CALCIUM 9.9 MG/DL (8.5-10.1); CARBON DIOXIDE 23 MMOL/L (21-32); CHLORIDE 105 MMOL/L (98-107); CREATININE SERUM 0.89 MG/DL (0.60-1.30); GFR ESTIMATED > 60; GLUCOSE 105 MG/DL (70-105); MAGNESIUM 2.2 MG/DL (1.8-2.4); SODIUM 141 MMOL/L (135-145); TOTAL PROTEIN 6.9 GM/DL (6.4-8.2)
[2019-06-11 21:10] VITALS: BP 144/78
== END 2019-06-11 21:09 | disposition home or self-care (01) ==
LOC: EDUNIT# 19:27 → ER 19:28
DX: R07.89 Other chest pain (principal); E11.9 Type 2 diabetes mellitus without complications; I10 Essential (primary) hypertension; I25.10 Atherosclerotic heart disease of native coronary artery without angina pectoris; J45.909 Unspecified asthma, uncomplicated; K21.9 Gastro-esophageal reflux disease without esophagitis; K58.9 Irritable bowel syndrome, unspecified; G47.30 Sleep apnea, unspecified; Z87.820 Personal history of traumatic brain injury; Z90.49 Acquired absence of other specified parts of digestive tract; Z90.89 Acquired absence of other organs; Z90.710 Acquired absence of both cervix and uterus; Z95.9 Presence of cardiac and vascular implant and graft, unspecified; Z88.1 Allergy status to other antibiotic agents; Z91.041 Radiographic dye allergy status; Z88.2 Allergy status to sulfonamides; Z88.6 Allergy status to analgesic agent; Z88.5 Allergy status to narcotic agent; Z91.040 Latex allergy status; Z88.8 Allergy status to other drugs, medicaments and biological substances; Z82.49 Family history of ischemic heart disease and other diseases of the circulatory system
CPT/HCPCS: 36415; 71046; 80053; 83735; 83874; 84484; 85025; 85610; 85730; 93005; 93041

== ENCOUNTER 2019-10-20 22:55 | Observation (INO) | payer MEDICARE, OTHER ==
[~2019-10-20] VITALS: Ht 157.4 cm; Wt 110.0 kg
[~2019-10-20 22:55] MED LIST changes: -GLIM2TAB PO; +GLIM2TAB2 PO
[2019-10-20] MEDS ORDERED: FAMOTIDINE 20MG/2ML IV (PEPCID) IV STA (23:04)
[2019-10-20 23:11] LABS: BASOPHILS % (AUTO) 0 % (0-10); EOSINOPHILS # (AUTO) 0.2 10^3/uL (0.0-0.3); EOSINOPHILS % (AUTO) 3 % (0-10); HEMATOCRIT 39 % (35-52); HEMOGLOBIN 12.1 G/DL (11.5-16.0); LYMPHOCYTES # (AUTO) 1.2 X 10^3 (1.0-4.0); LYMPHOCYTES % (AUTO) 18 % (12-44); MEAN CORPUSCULAR HEMOGLOBIN 27 PG (25-34); MEAN CORPUSCULAR HGB CONC 31 G/DL (32-36); MEAN CORPUSCULAR VOLUME 86 FL (80-99); MEAN PLATELET VOLUME 10.1 FL (7.4-10.4); MONOCYTES # (AUTO) 0.6 X 10^3 (0.0-1.0); MONOCYTES % (AUTO) 9 % (0-12); NEUTROPHILS # (AUTO) 4.8 X 10^3 (1.8-7.8); NEUTROPHILS % (AUTO) 69 % (42-75); PLATELET COUNT 120 10^3/uL (130-400); RED CELL DISTRIBUTION WIDTH 15.6 % (10.0-14.5); WHITE BLOOD COUNT 6.9 10^3/uL (4.3-11.0)
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
[2019-10-20 23:26] LABS: INR 1.8 (0.8-1.4); PROTHROMBIN TIME PATIENT 21.9 SEC (12.2-14.7)
[2019-10-20 23:35] LABS: ALANINE AMINOTRANSFERASE 20 U/L (0-55); ALBUMIN 4.1 GM/DL (3.2-4.5); ALKALINE PHOSPHATASE 66 U/L (40-136); BILIRUBIN,TOTAL 0.4 MG/DL (0.1-1.0); BUN/CREATININE RATIO 20; CALCIUM 9.2 MG/DL (8.5-10.1); CARBON DIOXIDE 24 MMOL/L (21-32); CHLORIDE 107 MMOL/L (98-107); CREATININE SERUM 0.86 MG/DL (0.60-1.30); GFR ESTIMATED > 60; GLUCOSE 161 MG/DL (70-105); POTASSIUM 4.2 MMOL/L (3.6-5.0); SODIUM 144 MMOL/L (135-145); TOTAL PROTEIN 6.5 GM/DL (6.4-8.2)
[2019-10-21] MEDS ORDERED: fentaNYL INJECTION 100 MCG/2 ML AMP IVP STA (00:42)
[2019-10-21] MEDS ORDERED: LIDOCAINE 2% VISCOUS 15 ML UDC PO ONE (00:45)
[2019-10-21] MEDS ORDERED: PANTOPRAZOLE 40 MG (PROTONIX) VIAL IV ONE (00:45)
[2019-10-21] MEDS ORDERED: ANTACID SUSP 30 ML UDC (MYLANTA) PO ONE (00:45)
[2019-10-21] MEDS ORDERED: SUCRALFATE 1 GM (CARAFATE) TAB PO ONE (02:30)
[2019-10-21] MEDS ORDERED: KETOROLAC 30 MG/ML VIAL IVP STA (02:56)
[2019-10-21] MEDS ORDERED: ONDANSETRON 4 MG/2 ML (SDV) Z0FRAN IVP ONE (04:00)
[2019-10-21] MEDS ORDERED: morphine INJ 10 MG/ML 1ML (SYR OR VIAL) IVP ONE (04:00)
--- NOTE | 2019-10-21 04:40 | NUR ---
PORTILLO CHAUDHRY admitted to room 426-1, with an admitting diagnosis of chest pain,on 10/21/19 from ED via wheelchair, accompanied by staff.PORTILLO CHAUDHRY introduced to surroundings, call light, bed controls, phone, TV, temperature control, lights, meal times, smoking policy, visitor policy, side rail policy, bathrooms and showers. Patient Rights given to patient in the handbook. PORTILLO CHAUDHRY verbalizes understanding that [facility] is not responsible for the loss or damage to any personal effects or valuables that are kept in the patients posession during their hospitalization.
[2019-10-21] MEDS ORDERED: morphine INJ 4 MG/ML 1 ML (VIAL/SYRINGE) IV PRN (05:15)
[2019-10-21] MEDS ORDERED: ONDANSETRON 4 MG/2 ML (SDV) Z0FRAN IV PRN (05:15)
[2019-10-21] MEDS ORDERED: NS IV 1000 ML 1,000 ML IV SCH (05:15)
[2019-10-21] MEDS ORDERED: NITROGLYCERIN 0.4 MG SL TABS BTL 25'S SL PRN (05:30)
[2019-10-21 05:31] VITALS: BP 180/74
[2019-10-21 05:52] VITALS: BP 164/72
--- NOTE | 2019-10-21 07:11 | Diagnostic Imaging Report ---
INDICATION: Chest pain. COMPARISON: 06/11/2019 TECHNIQUE: Single frontal radiograph of the chest dated 10/20/2019. FINDINGS: The cardiac silhouette is enlarged, though stable. Calcifications within the aortic arch. Central pulmonary vascular congestion is again identified. No additional new focal pulmonary opacity. No large volume pleural effusion. No pneumothorax. No acute osseous abnormality. Interval placement of a prosthetic cardiac valve. IMPRESSION: Interval placement of a prosthetic cardiac valve. Persistent cardiomegaly with central pulmonary vascular congestion. Dictated by: Dictated on workstation # [id number]
[2019-10-21 07:19] LABS: BASOPHILS % (AUTO) 1 % (0-10); EOSINOPHILS # (AUTO) 0.2 10^3/uL (0.0-0.3); EOSINOPHILS % (AUTO) 3 % (0-10); HEMATOCRIT 38 % (35-52); HEMOGLOBIN 11.8 G/DL (11.5-16.0); LYMPHOCYTES # (AUTO) 1.1 X 10^3 (1.0-4.0); LYMPHOCYTES % (AUTO) 16 % (12-44); MEAN CORPUSCULAR HEMOGLOBIN 27 PG (25-34); MEAN CORPUSCULAR HGB CONC 31 G/DL (32-36); MEAN CORPUSCULAR VOLUME 85 FL (80-99); MEAN PLATELET VOLUME 10.4 FL (7.4-10.4); MONOCYTES # (AUTO) 0.6 X 10^3 (0.0-1.0); MONOCYTES % (AUTO) 9 % (0-12); NEUTROPHILS # (AUTO) 4.8 X 10^3 (1.8-7.8); NEUTROPHILS % (AUTO) 72 % (42-75); PLATELET COUNT 108 10^3/uL (130-400); RED CELL DISTRIBUTION WIDTH 15.8 % (10.0-14.5); WHITE BLOOD COUNT 6.6 10^3/uL (4.3-11.0)
[2019-10-21 07:50] LABS: ALANINE AMINOTRANSFERASE 18 U/L (0-55); ALBUMIN 3.9 GM/DL (3.2-4.5); ALKALINE PHOSPHATASE 51 U/L (40-136); BILIRUBIN,TOTAL 0.5 MG/DL (0.1-1.0); BUN/CREATININE RATIO 23; CALCIUM 8.9 MG/DL (8.5-10.1); CARBON DIOXIDE 25 MMOL/L (21-32); CHLORIDE 107 MMOL/L (98-107); GFR ESTIMATED > 60; GLUCOSE 100 MG/DL (70-105); POTASSIUM 4.3 MMOL/L (3.6-5.0); SODIUM 143 MMOL/L (135-145)
[2019-10-21 08:00] VITALS: BP 147/73
[2019-10-21] MEDS ORDERED: NITR0.4T39 SL (08:02)
[2019-10-21] MEDS ORDERED: MAGN1TAB31 PO (08:02)
[2019-10-21] MEDS ORDERED: ISOS30TA3 PO (08:02)
[2019-10-21] MEDS ORDERED: AMIO200T4 PO (08:02)
[2019-10-21] MEDS ORDERED: RIVA15TA PO (08:02)
[2019-10-21] MEDS ORDERED: LOPE-175 PO (08:02)
[2019-10-21] MEDS ORDERED: HYOS-6 PO (08:02)
[2019-10-21] MEDS ORDERED: AMLO2.5T2 PO (08:02)
[2019-10-21] MEDS ORDERED: GLIM4TAB3 PO (08:02)
[2019-10-21] MEDS ORDERED: BUDE10.2 IH (08:02)
[2019-10-21] MEDS ORDERED: BUDE0.5A IH (08:02)
--- NOTE | 2019-10-21 08:29 | Consultation-Cardiology ---
HPI-Cardiology Cardiology Consultation Date of Consultation 10/21/19 Date of Admission Time Seen by Provider: 08:24 Indication: Chest pain HPI 79-year-old lady with history of recurrent chest pain, had multiple cardiac catheterization with no significant obstructive coronary artery disease, last procedure was done in May [address] Durand, patient had a recent Edward Jay TAVR done in [place], postoperatively had atrial fibrillation, underwent cardioversion and maintained on amiodarone and Xarelto. Having difficulty achieving adequate blood pressure control. She started to have waxing and waning chest pain yesterday, associated with headache, took one sublingual nitroglycerin with no full relief, came into the emergency room and had relief of her chest pain with nitroglycerin. Described the chest pain as sharp in the retrosternal area radiating to the back and neck. No palpitation. No syncope or near syncopal episodes. No claudication Home Medications & Allergies Allergies: Coded Allergies: Cephalosporins (Unverified Allergy, Unknown, 02/10/15) Iodinated Contrast Media (Unverified Allergy, Unknown, 02/10/15) Sulfa (Sulfonamide Antibiotics) (Unverified Allergy, Unknown, 02/10/15) ampicillin (Unverified Allergy, Unknown, 02/10/15) aspirin (Unverified Allergy, Unknown, 02/10/15) codeine (Unverified Allergy, Unknown, 02/10/15) duloxetine (Unverified Allergy, Unknown, 02/10/15) erythromycin base (Unverified Allergy, Unknown, 02/10/15) ezetimibe (Unverified Allergy, Unknown, 02/10/15) latex (Unverified Allergy, Unknown, 02/10/15) methohexital (Unverified Allergy, Unknown, 02/10/15) nickel (Unverified Allergy, Unknown, 02/10/15) simvastatin (Unverified Allergy, Unknown, 02/10/15) Home Medication List Reviewed: Yes NBK-Ubjpez-Ncaxef Hx Patient Social History Marital Status: Employed/Student: retired Alcohol Use: Denies Use Recreational Drug Use: No Smoking Status: Never a Smoker Recent Foreign Travel: No Recent Infectious Disease Expo: No Recent Hopitalizations: No Immunizations Up To Date Tetanus Booster (TDap): Less than 5yrs Date of Pneumonia Vaccine: Oct 21, 2018 Date of Influenza Vaccine: Sep 04, 2019 Past Medical History Discussed below Family Medical History Significant Family History: Heart Disease Family Medical Hx Strong family history of coronary artery disease Review of Systems-General Review of Systems Constitutional: see HPI, malaise EENTM: see HPI, no symptoms reported Respiratory: see HPI; No cough; dyspnea on exertion; No hemoptysis, No orthopnea, No phlegm, No short of breath, No stridor, No wheezing, No other Cardiovascular: see HPI, chest pain, edema; No Hx of Intervention, No palpitations, No syncope, No vascular heart diseas, No other Gastrointestinal: no symptoms reported, see HPI Genitourinary: no symptoms reported, see HPI Musculoskeletal: see HPI; No back pain; joint pain Skin: see HPI; No lesions, No lumps, No rash Psychiatric/Neurological: No Symptoms Reported, See HPI All Other Systems Reviewed Negative Unless Noted: Yes Reviewed Test Results Reviewed Test Results Lab Laboratory Tests Test 10/20/19 23:05 10/21/19 01:52 10/21/19 07:15 Range/Units White Blood Count 6.9 6.6 4.3-11.0 10^3/uL Red Blood Count 4.51 4.44 4.35-5.85 10^6/uL Hemoglobin 12.1 11.8 11.5-16.0 G/DL Hematocrit 39 38 35-52 % Mean Corpuscular Volume 86 85 80-99 FL Mean Corpuscular Hemoglobin 27 27 25-34 PG Mean Corpuscular Hemoglobin Concent 31 L 31 L 32-36 G/DL Red Cell Distribution Width 15.6 H 15.8 H 10.0-14.5 % Platelet Count 120 L 108 L 130-400 10^3/uL Mean Platelet Volume 10.1 10.4 7.4-10.4 FL Neutrophils (%) (Auto) 69 72 42-75 % Lymphocytes (%) (Auto) 18 16 12-44 % Monocytes (%) (Auto) 9 9 0-12 % Eosinophils (%) (Auto) 3 3 0-10 % Basophils (%) (Auto) 0 1 0-10 % Neutrophils # (Auto) 4.8 4.8 1.8-7.8 X 10^3 Lymphocytes # (Auto) 1.2 1.1 1.0-4.0 X 10^3 Monocytes # (Auto) 0.6 0.6 0.0-1.0 X 10^3 Eosinophils # (Auto) 0.2 0.2 0.0-0.3 10^3/uL Basophils # (Auto) 0.0 0.0 0.0-0.1 10^3/uL Prothrombin Time 21.9 H 12.2-14.7 SEC INR Comment 1.8 H 0.8-1.4 Activated Partial Thromboplast Time 40 H 24-35 SEC Sodium Level 144 143 135-145 MMOL/L Potassium Level 4.2 4.3 3.6-5.0 MMOL/L Chloride Level 107 107 98-107 MMOL/L Carbon Dioxide Level 24 25 21-32 MMOL/L Anion Gap 13 11 5-14 MMOL/L Blood Urea Nitrogen 17 18 7-18 MG/DL Creatinine 0.86 0.80 0.60-1.30 MG/DL Estimat Glomerular Filtration Rate > 60 > 60 BUN/Creatinine Ratio 20 23 Glucose Level 161 H 100 70-105 MG/DL Calcium Level 9.2 8.9 8.5-10.1 MG/DL Corrected Calcium 9.1 9.0 8.5-10.1 MG/DL Magnesium Level 2.0 1.6-2.4 MG/DL Total Bilirubin 0.4 0.5 0.1-1.0 MG/DL Aspartate Amino Transf (AST/SGOT) 17 15 5-34 U/L Alanine Aminotransferase (ALT/SGPT) 20 18 0-55 U/L Alkaline Phosphatase 66 51 40-136 U/L Myoglobin 38.2 10.0-92.0 NG/ML Troponin I < 0.028 < 0.028 < 0.028 <0.028 NG/ML Total Protein 6.5 6.0 L 6.4-8.2 GM/DL Albumin 4.1 3.9 3.2-4.5 GM/DL Physical Exam Physical Exam Vital Signs Vital Signs - First Documented 10/20/19 10/21/19 22:59 04:32 Temp 37.0 Pulse 73 Resp 18 B/P (MAP) 122/77 (92) Pulse Ox 98 O2 Delivery Room Air Capillary Refill : Less Than 3 Seconds Height, Weight, BMI Height: 5'2.00" Weight: 243lbs. 0.0oz. 110.307517kp; 44.40 BMI Method:Stated General Appearance: Chronically ill, Obese Eyes: Bilateral Eye Normal Inspection, Bilateral Eye PERRL, Bilateral Eye EOMI HEENT: PERRL/EOMI, TMs Normal, Normal ENT Inspection, Pharynx Normal Neck: Non Tender, Supple Respiratory: Lungs Clear, Normal Breath Sounds Cardiovascular: Regular Rate, Rhythm, Systolic Murmur Gastrointestinal: Non Tender, Soft Back: Normal Inspection, No CVA Tenderness, No Vertebral Tenderness Extremity: Non Tender, No Calf Tenderness Neurologic/Psychiatric: Alert, Oriented x3 Skin: Normal Color, Warm/Dry Lymphatic: No Adenopathy A/P-Cardiology Admission Diagnosis Chest pain Aortic valve stenosis Hypertension Hyperlipidemia Assessment/Plan Chest pain nonspecific etiology, atypical in presentation, reporting improvement of her pain at this time, cardiac enzymes are negative, EKG has left bundle branch block. Aortic valve stenosis status post TAVR with Edward Jay valve done in September 2019. Patient reported that she is scheduled for echocardiogram at her primary film and video graphics designer Dr. Durand tomorrow. Hypertension, difficult to control, multiple reaction to medication, restart home medication monitor blood pressure Hyperlipidemia, intolerant to multiple statin. Paroxysmal atrial fibrillation, occurred recently, started on amiodarone and Xarelto and tolerating them well. Reporting episodes of bradycardia, had a Holter monitor done recently at [facility], resume amiodarone and Xarelto Diabetes mellitus, followed and managed by primary care physician Hypothyroidism followed and managed by primary care physician Morbid obesity, BMI 44 Gastroesophageal reflux disease, maintained on Protonix twice a day and Carafate Clinical Quality Measures AMI/AHF: ASA po Prior to arrival: No DVT/VTE Risk/Contraindication: Risk Factor Score Per Nursin RFS Level Per Nursing on Admit: 3=High MECHELLE WHITING MD Oct 21, 2019 08:29 POS
[2019-10-21] MEDS ORDERED: ISOSORBIDE MONONITRATE 30 MG (IMDUR) TAB PO SCH (09:00)
[2019-10-21] MEDS ORDERED: PANTOPRAZOLE 40 MG (PROTONIX) VIAL IV SCH (09:00)
[2019-10-21] MEDS ORDERED: AMIODARONE 200 MG (CORDARONE) TAB PO SCH ×2 (09:00)
[2019-10-21] MEDS ORDERED: lisINopril 40 MG (PRINIVIL) TABLET PO SCH (09:00)
[2019-10-21] MEDS ORDERED: PANTOPRAZOLE 40 MG (PROTONIX) TAB PO SCH (09:00)
[2019-10-21] MEDS ORDERED: SIME80TA16 PO (09:56)
--- NOTE | 2019-10-21 12:14 | Discharge Summary ---
Discharge Summary Hospital Course Problems/Dx: (1) Non-cardiac chest pain Status: Acute Final Diagnosis: non-cardiac chest pain Hospital Course Date of Admission: Oct 21, 2019 at 04:06 Admission Diagnosis : Chest pain Family Physician/Provider: Km Marino MD Date of Discharge: 10/21/19 Discharge Diagnosis: Non-cardiac chest pain Hospital Course: Renetta Jackson is a 79-year-old female with past medical history of hypertension, diabetes, hyperlipidemia, GERD, hypothyroidism, paroxysmal atrial fibrillation, aortic stenosis status post prosthetic aortic valve replacement, hypothyroidism, morbid obesity, who presented with chest pain and was admitted for chest pain rule out. Her EKG was normal and her troponins were not elevated. Her symptoms improved. Cardiology was consulted and assisted in her care. She has had several recent cardiac catheterizations which were normal. She has an appointment scheduled tomorrow with her cardiothoracic surgeon for a repeat echocardiogram. Labs and Pending Lab Test: Laboratory Tests 10/20/19 23:05: White Blood Count 6.9, Red Blood Count 4.51, Hemoglobin 12.1, Hematocrit 39, Mean Corpuscular Volume 86, Mean Corpuscular Hemoglobin 27, Mean Corpuscular Hemoglobin Concent 31L, Red Cell Distribution Width 15.6H, Platelet Count 120L, Mean Platelet Volume 10.1, Neutrophils (%) (Auto) 69, Lymphocytes (%) (Auto) 18, Monocytes (%) (Auto) 9, Eosinophils (%) (Auto) 3, Basophils (%) (Auto) 0, Neutrophils # (Auto) 4.8, Lymphocytes # (Auto) 1.2, Monocytes # (Auto) 0.6, Eosinophils # (Auto) 0.2, Basophils # (Auto) 0.0, Prothrombin Time 21.9H, INR Comment 1.8H, Activated Partial Thromboplast Time 40H, Sodium Level 144, Potassium Level 4.2, Chloride Level 107, Carbon Dioxide Level 24, Anion Gap 13, Blood Urea Nitrogen 17, Creatinine 0.86, Estimat Glomerular Filtration Rate > 6 0, BUN/Creatinine Ratio 20, Glucose Level 161H, Calcium Level 9.2, Corrected Calcium 9.1, Magnesium Level 2.0, Total Bilirubin 0.4, Aspartate Amino Transf (AST/SGOT) 17, Alanine Aminotransferase (ALT/SGPT) 20, Alkaline Phosphatase 66, Myoglobin 38.2, Troponin I < 0.028, Total Protein 6.5, Albumin 4.1 10/21/19 01:52: Troponin I < 0.028 10/21/19 07:15: White Blood Count 6.6, Red Blood Count 4.44, Hemoglobin 11.8, Hematocrit 38, Mean Corpuscular Volume 85, Mean Corpuscular Hemoglobin 27, Mean Corpuscular Hemoglobin Concent 31L, Red Cell Distribution Width 15.8H, Platelet Count 108L, Mean Platelet Volume 10.4, Neutrophils (%) (Auto) 72, Lymphocytes (%) (Auto) 16, Monocytes (%) (Auto) 9, Eosinophils (%) (Auto) 3, Basophils (%) (Auto) 1, Neutrophils # (Auto) 4.8, Lymphocytes # (Auto) 1.1, Monocytes # (Auto) 0.6, Eosinophils # (Auto) 0.2, Basophils # (Auto) 0.0, Sodium Level 143, Potassium Level 4.3, Chloride Level 107, Carbon Dioxide Level 25, Anion Gap 11, Blood Urea Nitrogen 18, Creatinine 0.80, Estimat Glomerular Filtration Rate > 60, BUN/Creatinine Ratio 23, Glucose Level 100, Calcium Level 8.9, Corrected Calcium 9.0, Total Bilirubin 0.5, Aspartate Amino Transf (AST/SGOT) 15, Alanine Aminotransferase (ALT/SGPT) 18, Alkaline Phosphatase 51, Troponin I < 0.028, Total Protein 6.0L, Albumin 3.9 Home Meds Active Simethicone 80 Mg Tab.chew 80 Mg PO TIDWM PRN 30 Days Reported Budesonide 0.5 Mg/2 Ml Ampul.neb 0.5 Mg IH PRN Symbicort 160-4.5 Mcg Inhaler (Budesonide/Formoterol Fumarate) 10.2 Gm Hfa.aer.ad 2 Puff IH BID PRN Gaviscon Es Tablet Chew (Magnesium Carbonate/Al Hydrox) 1 Each Tab.chew 1 Each PO PRN Hyoscyamine Sulfate 0.125 Mg Tab.rapdis 0.125 Mg PO PRN Nitroglycerin 0.4 Mg Tab.subl 0.4 Mg SL UD PRN Xarelto (Rivaroxaban) 15 Mg Tablet 15 Mg PO HS Norvasc (Amlodipine Besylate) 2.5 Mg Tablet 2.5 Mg PO HS Imodium A-D (Loperamide HCl) 2 Mg Capsule 2 Mg PO PRN Amiodarone HCl 200 Mg Tablet 200 Mg PO DAILY Isosorbide Mononitrate ER (Isosorbide Mononitrate) 30 Mg Tab.er.24h 15 Mg PO TID Glimepiride 4 Mg Tablet 4 Mg PO HS Proair Hfa (Albuterol Sulfate) 1 Puff Puff 2 Puff IH Q4H PRN 1 PUFF = 90 MCG Sucralfate 1 Gm Tablet 1 Gm PO HS Acyclovir 400 Mg Tablet 400 Mg PO BID Pantoprazole Sodium 40 Mg Tablet.dr 40 Mg PO BID Montelukast Sodium 10 Mg Tablet 10 Mg PO DAILY Glimepiride 2 Mg Tablet 2 Mg PO DAILY Lisinopril 40 Mg Tablet 40 Mg PO DAILY Levothyroxine Sodium 100 Mcg Tablet 100 Mcg PO DAILY Buspirone HCl Unknown Strength Tablet 20 Mg PO DAILY Assessment/Pt Instructions Take medications as prescribed. Follow up with your primary care doctor. Follow up with your metal work duct installer. Return with worsening chest pain, shortness of breath, or if you feel like you are getting worse. Discharge Instructions Discharge Diet: No Restrictions Activity as Tolerated: Yes Discharge Physical Examination General Appearance: Alert, Oriented X3, Cooperative, No Acute Distress, Other (obese) HEENT: Atraumatic, PERRLA, EOMI, Mucous Memb Moist/[place] Respiratory: Clear to Auscultation, Normal Air Movement Cardiovascular: Regular Rate, Normal S1, Normal S2, No Murmurs Abdominal: Normal Bowel Sounds, Soft, No Tenderness Extremities: No Edema, No Tenderness/Swelling Skin: No Rashes, No Significant Lesion Neuro: Normal Speech, Normal Tone Psych/Mental Status: Mental Status NL, Mood NL Allergies: Coded Allergies: Cephalosporins (Unverified Allergy, Unknown, 02/10/15) Iodinated Contrast Media (Unverified Allergy, Unknown, 02/10/15) Sulfa (Sulfonamide Antibiotics) (Unverified Allergy, Unknown, 02/10/15) ampicillin (Unverified Allergy, Unknown, 02/10/15) aspirin (Unverified Allergy, Unknown, 02/10/15) codeine (Unverified Allergy, Unknown, 02/10/15) duloxetine (Unverified Allergy, Unknown, 02/10/15) erythromycin base (Unverified Allergy, Unknown, 02/10/15) ezetimibe (Unverified Allergy, Unknown, 02/10/15) latex (Unverified Allergy, Unknown, 02/10/15) methohexital (Unverified Allergy, Unknown, 02/10/15) nickel (Unverified Allergy, Unknown, 02/10/15) simvastatin (Unverified Allergy, Unknown, 02/10/15) Copy Copies To 1: KM MARINO MD Discharge Summary Date of Admission Oct 21, 2019 at 04:06 Date of Discharge Discharge Date: Oct 21, 2019 Discharge Time: 12:14 Admission Diagnosis chest pain Consults/Procedures Consulations Cardiology Discharge Diagnosis (1) Non-cardiac chest pain Status: Acute Clinical Quality Measures AMI/AHF: ASA po Prior to arrival: No DVT/VTE Risk/Contraindication: Risk Factor Score Per Nursin RFS Level Per Nursing on Admit: 3=High CHANDNI LEIVA MD Oct 21, 2019 12:14 POS
[2019-10-21 12:39] VITALS: BP 147/73
[2019-10-21] MEDS ORDERED: RIVAROXABAN 15 MG TABLET (XARELTO) PO SCH ×2 (17:00→21:00)
[2019-10-21] MEDS ORDERED: SUCRALFATE 1 GM (CARAFATE) TAB PO SCH (21:00)
[2019-10-21] MEDS ORDERED: amLODIPine 2.5MG (NORVASC) TAB PO SCH (21:00)
--- OUTSIDE RECORDS SUMMARY | 2019-12-02 19:30 | XMS REPORT | Encounter Summary ---
Author Author [facility] Organization [facility] Address Unknown Phone Unavailable Care Team Providers Care Septic Tank Service Technician Name Role Phone PCP Unavailable Encounter Details Care Team Description Date [place] [address] [address] [phone] 07/23/2005 [facility] [address] [place], [place] [address] Social History Date Tobacco Use Types Packs/Day Years Used Never Assessed Sex Assigned at Date Recorded Not on file Industry Job Start Date Occupation Not on file Not on file Not on file Travel End Travel History Travel Start No recent travel history available. documented as of this encounter Plan of Treatment Not on filedocumented as of this encounter Procedures Comments Procedure Name Priority Date/Time Associated Diag nosis MA MAMMO SCREENING Routine 07/23/2005 1:20 PM CDT documented in this encounter Results * MA Mammo screening (07/23/2005 1:20 PM CDT) Specimen Narrative Performed At Report [facility] Name: RENETTA CHAUDHRY Date of : 1940 Age: 65Y Room-Bed/Loc/Type : -// Check-in #: [id number] Attending Physician: MORENA ORTEGA Admitting Diagnosis: Procedure: MA MAMMO SCREEN BILAT; 700 55 Reason for Exam: SCREEN MAMMOGRAM [facility] Requested by: MORENA ORTEGA Exam Ord ered: 07/23/2005 Evonne # / Jacket #: [id number] Exam: BILATERAL SCREENING MAMMOGRAM W ITH CAD Date/Time of Exam: 07/23/2005 13:40 Reason for Exam: Screening. MLO and CC views of both breasts were o btained. These images were reviewed by R2 CAD, version 5.2. Comparison is made to 01/02/2001. Small, circumscribed, nodular densities are ag ain noted in the 12 o'clock right breast, unchanged since previous exam, consistent with small intraparenchymal lymph nodes. There i s no evidence of suspicious mass, area of architectural distortion or mal ignant-appearing calcification. Benign calcification is seen in the lef t breast. IMPRESSION: Stable mammogram without ev idence of malignancy. RECOMMENDATIONS: Routine screening mamm ography in 1 year. BI-RADS: BI-RADS CATEGORY II: Benign findings. Electronically Authenticated By: Salvatore Sparrow M.D. 07/28/2005 08:19:53 Salvatore Sparrow M.D. cc: In compliance with 42 CFR 494.54 (c) (3 ) of the "Conditions for Coverage of Screening Mammography," [facility] will mail to the patient a summary of the interpreting yadira hernandez's statement within 96 hours after dictation. 1 Procedure Note Interface, Rad Conversion - 01/14/2014 9:17 PM REVENUE OFFICER Report Name: RENETTA CHAUDHRY Date of : 1940 Age: 65Y Room-Bed/Loc/Type: -// Check-in #: [id number] Attending Physician: MORENA ORTEGA Admitting Diagnosis: Procedure: MA MAMMO SCREEN BILAT; 80096 Reason for Exam: SCREEN MAMMOGRAM [facility] Requested by: MORENA ORTEGA Exam Ordered: 07/23/2005 Evonne # / Jacket #: [id number] Exam: BILATERAL SCREENING MAMMOGRAM WITH CAD Date/Time of Exam: 07/23/2005 13:40 Reason for Exam: Screening. MLO and CC views of both breasts were obtained. These images were reviewed by R2 CAD, version 5.2. Comparison is made to 01/02/2001. Small, circumscribed, nodular densities are again noted in the 12 o'clock right breast, unchanged since previous exam, consistent with small intraparenchymal lymph nodes. There is no evidence of suspicious mass, area of architectural distortion or malignant-appearing calcification. Benign calcification is seen in the left breast. IMPRESSION: Stable mammogram without evidence of malignancy. RECOMMENDATIONS: Routine screening mammography in 1 year. BI-RADS: BI-RADS CATEGORY II: Benign findings. Electronically Authenticated By: Salvatore Sparrow M.D. 07/28/2005 08:19:53 Salvatore Sparrow M.D. cc: In compliance with 42 CFR 494.54 (c) (3) of the "Conditions for Coverage of Screening Mammography," [facility] will mail to the patient a summary of the interpreting physician's statement within 96 hours after dictation. 1 Performing Organization Address City/State/Zipcode [employer] [place] documented in this encounter Visit Diagnoses Not on filedocumented in this encounter
--- OUTSIDE RECORDS SUMMARY | 2019-12-02 19:30 | XMS REPORT | Encounter Summary ---
Author Author [facility] Organization [facility] Address Unknown Phone Unavailable Care Team Providers Care Home Health Care Provider Name Role Phone PCP Unavailable Encounter Details Care Team Description Date Type Department 02/26/2003 [facility] Social History Date Tobacco Use Types Packs/Day Years Used Never Assessed Sex Assigned at Date Recorded Not on file Industry Job Start Date Occupation Not on file Not on file Not on file Travel End Travel History Travel Start No recent travel history available. documented as of this encounter Plan of Treatment Not on filedocumented as of this encounter Visit Diagnoses Not on filedocumented in this encounter
--- OUTSIDE RECORDS SUMMARY | 2019-12-02 19:30 | XMS REPORT | Encounter Summary ---
Author Author [facility] Organization [facility] Address Unknown Phone Unavailable Care Team Providers Care Car Repair Supervisor Name Role Phone PCP Unavailable Encounter Details Care Team Description Date Type Department CorbinKeith MD [address] [place], [place] [id number] 03/08/2003 [facility] t Social History [...]
--- OUTSIDE RECORDS SUMMARY | 2019-12-02 19:30 | XMS REPORT | Clinical Summary ---
Author Author [facility] Organization [facility] Address Unknown Phone Unavailable Care Team Providers Care Panel Cutter Name Role Phone Unverified, Unverified Md PCP Unavailable Ayse Yoo DO Unavailable Source Comments Some departments are not documenting in the electronic medical record. If you d o not see the information that you expected, contact Release of Information in [facility] [employer] Information Management department at [phone] for further assistan ce in locating additional records.[facility] Allergies Comments Active Allergy Reactions Severity Noted Date Adhesive UNKNOWN 11/29/2012 Ampicillin UNKNOWN 11/29/2012 Methohexital UNKNOWN 11/29/2012 Cephalosporins UNKNOWN 11/29/2012 Codeine UNKNOWN 11/29/2012 Iodinated Contrast Media UNKNOWN 11/29/2012 Duloxetine UNKNOWN 11/29/2012 Erythromycin UNKNOWN 11/29/2012 Latex UNKNOWN 11/29/2012 Nickel UNKNOWN 11/29/2012 Simvastatin UNKNOWN 11/29/2012 Sulfa (Sulfonamide UNKNOWN 11/29/2012 Antibiotics) Ezetimibe UNKNOWN 11/29/2012 Medications End Date Status Medication Sig Dispensed Refills Start Date Active albuterol (VENTOLIN HFA, Inhale 2 0 PROAIR HFA) 90 Puffs by mcg/actuation inhaler mouth every 6 hours as needed. Active albuterol-ipratropium Inhale 3 mL 0 (DUONEB) 0.5 mg-3 mg(2.5 solution as mg base)/3 mL nebulizer directed four solution times daily. Active busPIRone (BUSPAR) 10 mg Take 10 mg by 0 tablet mouth three times daily. Active cholecalciferol (Vitamin Take 1,000 0 D3) (VITAMIN D-3) 1,000 Units by units tablet mouth daily. Active COLESEVELAM HCL Take 3 Tabs 0 (COLESEVELAM PO) by mouth twice daily. Active fluticasone-salmeterol Inhale 1 Puff 0 (ADVAIR DISKUS) 250-50 by mouth mcg inhalation disk daily. Active fluticasone-salmeterol Inhale 1 Puff 0 (ADVAIR DISKUS) 500-50 by mouth mcg inhalation disk every 12 hours. Active HYOSCYAMINE SULFATE Take 0.125 mg 0 (HYOSYNE PO) by mouth as Needed. 1-2 tabs Active levothyroxine Take 100 mcg 0 (LEVOTHROID) 100 mcg by mouth tablet daily. Active lisinopril (PRINIVIL, Take 40 mg by 0 ZESTRIL) 40 mg tablet mouth daily. Active metFORMIN (GLUCOPHAGE) Take 250 mg 0 500 mg tablet by mouth twice daily with meals. Active montelukast (SINGULAIR) Take 10 mg by 0 10 mg tablet mouth at bedtime daily. Active Omalizumab (XOLAIR) 150 Inject 300 mg 0 mg SolR into area(s) as directed every [address] Take 40 mg by 0 (PROTONIX) 40 mg tablet mouth daily. Active sucralfate (CARAFATE) 1 Take 1 g by 0 gram tablet mouth every 6 hours. Active Problems Problem Noted Date Asthma 11/29/2012 Atopic dermatitis 11/29/2012 Allergic rhinitis 11/29/2012 Family History Medical History Relation Name Comments Coronary Artery Disease Brother Coronary Artery Disease Father Cancer Mother lung cancer Asthma Neg Hx Blood Clots Neg Hx COPD Neg Hx Cystic Fibrosis Neg Hx DVT Neg Hx Pulmonary Embolism Neg Hx Pulmonary Fibrosis Neg Hx Pulmonary HTN Neg Hx Relation Name Status Comments Brother Father Mother Social History Date Tobacco Use Types Packs/Day Years Used Never Smoker Drinks/Week oz/Week Comments Alcohol Use No Sex Assigned at Date Recorded Not on file Industry Job Start Date Occupation Not on file Not on file Not on file Travel End Travel History Travel Start No recent travel history available. Last Filed Vital Signs Reading Time Taken Comments Vital Sign 124/64 11/29/2012 1:28 PM TRAIN DISPATCHER Blood Pressure 87 11/29/2012 1:28 PM TRAIN DISPATCHER Pulse 36.7 C (98 F) 11/29/2012 1:28 PM TRAIN DISPATCHER Temperature 18 11/29/2012 1:28 PM TRAIN DISPATCHER Respiratory Rate 96% 11/29/2012 1:28 PM TRAIN DISPATCHER RA Oxygen Saturation - - Inhaled Oxygen Concentration 117.5 kg (259 lb) 11/29/2012 1:28 PM TRAIN DISPATCHER Weight 154.9 cm (5' 1") 11/29/2012 1:28 PM TRAIN DISPATCHER Height 48.94 11/29/2012 1:28 PM TRAIN DISPATCHER Body Mass Index Plan of Treatment Health Maintenance Due Date Last Done Comments DTAP/TDAP VACCINES (1 - 1953 Tdap) PHYSICAL (COMPREHENSIVE) 01/29/1960 EXAM SHINGLES RECOMBINANT 01/29/1992 VACCINE (1 of 2) OSTEOPOROSIS 2007 SCREENING/MONITORING PNEUMONIA (PCV13/PPSV23) 2007 VACCINES (1 of 2 - PCV13) INFLUENZA VACCINE 06/14/2019 Results Not on filefrom Last 3 Months
--- OUTSIDE RECORDS SUMMARY | 2019-12-02 19:30 | XMS REPORT | Encounter Summary ---
Author Author [facility] Organization [facility] Address Unknown Phone Unavailable Care Team Providers Care Irrigation System Operator Name Role Phone PCP Unavailable Encounter Details Care Team Description Date Type Department Jonathon Tavares MD [address] [place] [id number] 10/13/2009 [facility] al Encounter [address] [place] [address] Social History Date Tobacco Use Types Packs/Day [...] Procedure Name Priority Date/Time Associated Diag nosis THYROID STIMULATING Routine 10/13/2009 HORMONE 2:08 PM VOICE COACH documented in this encounter Results * Thyroid Stimulating Hormone (10/13/2009 2:08 PM VOICE COACH) Thyroid 0.90 0.45 - 4.50 UIU/ML [place] Stimulating Hormone Specimen Performing Organization Address City/State/Zipcode Ph one Number [facility] [address] [place], [place] [address] [place] documented in this encounter Visit Diagnoses Not on filedocumented in this encounter
--- OUTSIDE RECORDS SUMMARY | 2019-12-02 19:30 | XMS REPORT | Clinical Summary ---
Author Author [facility] Organization [facility] Address Unknown Phone Unavailable Care Team Providers Care Professor In Family Studies Name Role Phone PCP Unavailable Allergies Not on File Medications Not on file Active Problems Not on file Social History Date Tobacco Use Types Packs/Day Years Used Never Assessed Sex Assigned at Date Recorded Not on file Industry Job Start Date Occupation Not on file Not on file Not on file Travel End Travel History Travel Start No recent travel history available. Last Filed Vital Signs Not on file Plan of Treatment Not on file Results Not on filefrom Last 3 Months
--- OUTSIDE RECORDS SUMMARY | 2019-12-02 19:30 | XMS REPORT | Encounter Summary ---
Author Author [facility] Organization [facility] Address Unknown Phone Unavailable Care Team Providers Care Bit Sharpener Name Role Phone PCP Unavailable Encounter Details Care Team Description Date Type Department 01/18/2003 [facility] Social [...]
--- OUTSIDE RECORDS SUMMARY | 2019-12-02 19:31 | XMS REPORT | CCD ---
Author Author [facility] Organization [facility] er Address Unknown Phone Unavailable Care Team Providers Care Down Filler Name Role Phone PRASAD ORTEGA DO PP [phone] RISHI CHESTER, DR. Hilda SIMS CP [phone] REFERRING MD, NO RP Unavailable Allergies, Adverse Reactions, Alerts Substance Reaction Status ampicillin Active Brevital Sodium Active cephalosporins Active codeine Active Contrast Dye Active Cymbalta Active erythromycin Active Keflex Active Latex Active Nickel Active simvastatin Active Sulfa drugs Active Tape Active Zetia Active Zocor Active Problem List Condition Effective Dates Status Asthma NOS Active Chest pain 08/10/2012 Active DM (diabetes mellitus) Active DX: VERTIGO ORTHOSTATIC. 06/01/2008 Active Gastritis Active HTN Active Hyperlipidemia LDL goal < 100 Active CRESENCIO on CPAP Active Medications Medication Instructions Start Date End Date Status pneumococcal 0.5 mL, SOLUTION, IM, Once, 08/10/2012 08/10/2012 Completed 23-polyvalent 08/10/12 19:00:00, Stop jan e vaccine 08/10/12 19:00:00, give on admission (Pneumovax) influenza virus 0.5 mL, SUSP, IM, Once, 08/10/12 08/10/2012 Completed vaccine, inactivated 19:00:00, Stop date 2 19:00:00, give on admission pneumococcal 0.5 mL, SOLUTION, IM, Once, 06/11/2012 06/11/2012 Completed 23-valent vaccine 06/11/12 0:00:00, Stop date 06/11/12 0:00:00, give on admission (Pneumovax) Immunizations Vaccine Date Status influenza virus vaccine 08/11/2012 Not Done pneumococcal 23-valent vaccine 06/11/2012 Not Don e pneumococcal 23-valent vaccine1 08/10/2012 Not Do ne 1Result Note: Pt already received.
--- OUTSIDE RECORDS SUMMARY | 2019-12-02 19:31 | XMS REPORT | CCD ---
Author Author Auto PORTILLO Guallpa Organization [facility] Address Unknown Phone Unavailable Care Team Providers Care Java Web Services Developer Name Role Phone ELSA CHESTER, DR. Miri POLLOCK CP [phone] PIALVARO DOPRASAD PP [phone] REFERRING MD, NO RP Unavailable Allergies, Adverse [...] Medication Instructions Start Date End Date Status hyoscyamine 0.125 mg = 2 TAB, PO, 4 times a day, PRN 06/10/20 12 Ordered oral tablet IBS, 0 Refill(s), dose is 1 - 2 tabs dose is 1 - 2 tabs Welchol = 3 TAB, PO, BID (2 times a day), 0 06/10/2012 Ordered Refill(s) Vitamin D3 1000 unit = 1 CAP, PO, Daily, 0 Refill(s) 06/10/20 12 Ordered oral capsule mylanta ds/visc 30 mL, PO, Q6H (Every 6 hours), PRN 2 Ordered lido/apap Moderate Pain, 0 Refill(s) Carafate 1 gm oral = 1 TAB, PO, AC (Before meals), 0 06/12/20 12 Ordered tablet Refill(s) BuSpar 10 mg oral = 1 TAB, PO, Daily, 0 Refill(s) 06/10/2012 Ordered tablet DuoNeb 3 mL, Inhalation, 4 times a day, 06/10/2012 Ordered PRN Shortness of Breath, 0 Refill(s) albuterol inhaler 1 Puff - 2 Puffs, Inhalation, Q4H 2 Ordered (Every 4 hours), PRN Shortness of Breath, 0 Refill(s) Gaviscon 4 TAB, Chewed, TID (3 times a day), 06/11/2012 Ordered PRN as needed for indigestion, 0 Refill(s) pneumococcal 0.5 mL, SOLUTION, IM, Once, 08/10/2012 08/10/2012 Completed 23-polyvalent 08/10/12 19:00:00, Stop jan e vaccine 08/10/12 19:00:00, give on admission (Pneumovax) influenza virus 0.5 mL, SUSP, IM, Once, 08/10/12 08/10/2012 Completed vaccine, inactivated 19:00:00, Stop date 2 19:00:00, give on admission Advair Diskus 500 1 Puff, Inhalation, BID (2 times a 06/11/20 12 Ordered mcg-50 mcg day), PRN Shortness of [place] th, 0 inhalation powder Refill(s) pneumococcal 0.5 mL, SOLUTION, IM, Once, 06/11/2012 06/11/2012 Completed 23-valent vaccine 06/11/12 0:00:00, Stop date 06/11/12 0:00:00, give on admission (Pneumovax) Immunizations Vaccine Date Status influenza virus vaccine 08/11/2012 Not Done pneumococcal 23-valent vaccine 06/11/2012 Not Don e pneumococcal 23-valent vaccine1 08/10/2012 Not Do ne 1Result Note: Pt already received. Vital Signs Most recent to oldest [Reference Range]: 1 Temperature [96.8-99.7 DegF] 98.1 DegF (06/12/2012 04:00:00) Temp Method Oral (06/12/2012 04:00:00) Heart Rate 80 bpm (06/12/2012 08:47:00) Heart Rate Location Auto BP (06/12/2012 04:00:00) Respiratory Rate [14-20 br/min] 18 br/min (06/12/2012 04:00:00) Inet NIBP Systolic [71-219 mmHg] 137 mmHg (06/12/2012 08:47:00) Inet NIBP Diastolic [50-90 mmHg] 45 mmHg *LOW* (06/12/2012 08:47:00) NIBP MAP 83 mmHg (06/12/2012 04:00:00) NIBP MAP Calc 92 (06/12/2012 04:00:00) NIBP Alarms set and on Yes (06/11/2012 05:00:00) BP Location Arm, right (06/12/2012 04:00:00) BP Cuff Size Medium (06/12/2012 04:00:00) Heart Rhythm Sinus/atrial rhythm (06/12/2012 07:55:00) Vital Signs Status Vital signs taken (06/12/2012 04:00:00) Vital Signs Status/Type Post procedure (06/12/2012 07:55:00) Results HEMATOLOGY Most recent to oldest [Reference Range]: 1 2 3 WBC [4.0-11.0 x10'3/microL] 6.4 x10'3/microL (06/12/2012 05:32:00) 6.4 x10'3/microL (06/10/2012 20:03:00) RBC [3.90-5.60 x10'6/microL] 4.70 x10'6/microL (06/12/2012 05:32:00) 4.91 x10'6/microL (06/10/2012 20:03:00) Hgb [12.0-16.0 g/dL] 12.9 g/dL (06/12/2012 05:32:00) 13.5 g/dL (06/10/2012 20:03:00) Hct [35-47 %] 39 % (06/12/2012 05:32:00) 41 % (06/10/2012 20:03:00) Platelet [140-400 x10'3/microL] 130 x10'3/microL *LOW* (06/12/2012 05:32:00) 150 x10'3/microL (06/10/2012 20:03:00) MCV [81-99 fL] 83 fL (06/12/2012 05:32:00) 83 fL (06/10/2012 20:03:00) MCH [27-34 pg] 28 pg (06/12/2012 05:32:00) 28 pg (06/10/2012 20:03:00) MCHC [32-36 g/dL] 33 g/dL (06/12/2012 05:32:00) 33 g/dL (06/10/2012 20:03:00) RDW [<=14.5 %] 14.3 % (06/12/2012 05:32:00) 14.2 % (06/10/2012 20:03:00) MPV [6.5-10.4 fL] 8.1 fL (06/12/2012 05:32:00) 8.7 fL (06/10/2012 20:03:00) Neutrophils % [44-76 %] 62 % (06/12/2012 05:32:00) 67 % (06/10/2012 20:03:00) Lymphocytes % [13-43 %] 24 % (06/12/2012 05:32:00) 22 % (06/10/2012 20:03:00) Monocytes % [0-13 %] 10 % (06/12/2012 05:32:00) 7 % (06/10/2012 20:03:00) Eosinophils % [0-7 %] 3 % (06/12/2012 05:32:00) 3 % (06/10/2012 20:03:00) Basophils % [0-3 %] 1 % (06/12/2012 05:32:00) 0 % (06/10/2012 20:03:00) Neutrophils Abs [1.4-7.2 x10'3/microL] 4.0 x10'3/micro L (06/12/2012 05:32:00) 4.3 x10'3/microL (06/10/2012 20:03:00) Lymphocytes Abs [1.2-3.4 x10'3/microL] 1.5 x10'3/micro L (06/12/2012 05:32:00) 1.4 x10'3/microL (06/10/2012 20:03:00) Monocytes Abs [0.1-0.6 x10'3/microL] 0.6 x10'3/microL (06/12/2012 05:32:00) 0.5 x10'3/microL (06/10/2012 20:03:00) Eosinophils Abs [0.0-0.5 x10'3/microL] 0.2 x10'3/micro L (06/12/2012 05:32:00) 0.2 x10'3/microL (06/10/2012 20:03:00) Basophils Abs [0.0-0.2 x10'3/microL] 0.0 x10'3/microL (06/12/2012 05:32:00) 0.0 x10'3/microL (06/10/2012 20:03:00) PT [11.5-15.0 second] 12.3 second (06/10/2012 20:03:00) INR 0.9 *NA* (06/10/2012 20:03:00) PTT [20-35 second] 27 second 1 (06/10/2012 20:03:00) 1Interpretive Data: See physician orders for patient-specific therapeutic goal when using unfractionated heparin. CHEMISTRY Most recent to oldest [Reference Range]: 1 2 3 Sodium [136-145 mmol/L] 137 mmol/L (06/12/2012 05:32:00) 139 mmol/L (06/10/2012 20:03:00) Potassium [3.5-5.1 mmol/L] 4.9 mmol/L (06/12/2012 05:32:00) 4.4 mmol/L (06/10/2012 20:03:00) Chloride [98-107 mmol/L] 100 mmol/L (06/12/2012 05:32:00) 99 mmol/L (06/10/2012 20:03:00) CO2 [22-29 mmol/L] 30 mmol/L *HI* (06/12/2012 05:32:00) 27 mmol/L (06/10/2012 20:03:00) AGAP [3-19 mmol/L] 7 mmol/L (06/12/2012 05:32:00) 13 mmol/L (06/10/2012 20:03:00) Glucose [70-100 mg/dL] 123 mg/dL *HI* (06/12/2012 05:32:00) 165 mg/dL *HI* (06/10/2012 20:03:00) Glucose Level (POC) [70-100 mg/dL] 135 mg/dL 2 *HI* (06/12/2012 08:33:00) 144 mg/dL 3 *HI* (06/12/2012 03:09:00) 156 mg/dL 4 *HI* (06/11/2012 20:16:00) BUN [8-20 mg/dL] 15 mg/dL (06/12/2012 05:32:00) 15 mg/dL (06/10/2012 20:03:00) Creatinine [0.7-1.2 mg/dL] 0.6 mg/dL 5 *LOW* (06/12/2012 05:32:00) 0.7 mg/dL 6 (06/10/2012 20:03:00) Calcium [8.6-10.2 mg/dL] 9.8 mg/dL (06/12/2012 05:32:00) 9.9 mg/dL (06/10/2012 20:03:00) GFR (MDRD) 90.1 mL/min/1.73 m2 7 *NA* (06/12/2012 05:32:00) 78.8 mL/min/1.73 m2 8 *NA* (06/10/2012 20:03:00) Est CrCL (CG) 72.1 mL/min 9 (06/12/2012 05:32:00) 61.8 mL/min 10 (06/10/2012 20:03:00) Albumin Level [3.5-5.2 g/dL] 4.2 g/dL (06/10/2012 20:03:00) Total Protein [6.6-8.7 g/dL] 6.6 g/dL (06/10/2012 20:03:00) Hgb A1c [4.4-6.0 %] 7.0 % *HI* (06/12/2012 05:32:00) Estimated Average Glucose 154 mg/dL *NA* (06/12/2012 05:32:00) Troponin I (POC) [0.00-0.08 ng/mL] 0.00 ng/mL 11 (06/10/2012 20:05:00) Troponin T [0.00-0.03 ng/mL] <0.02 ng/mL 12 (06/11/2012 20:30:00) <0.02 ng/mL 13 (06/11/2012 11:45:00) <0.02 ng/mL 14 (06/11/2012 04:50:00) Alk Phos [40-130 Inter. Units/L] 62 Inter. Units/L (06/10/2012 20:03:00) Lipase [13-60 Units/L] 28 Units/L (06/10/2012 20:03:00) AST [0-40 Units/L] 28 Units/L (06/10/2012 20:03:00) ALT [0-33 Inter. Units/L] 33 Inter. Units/L (06/10/2012 20:03:00) Bili Total [0.0-1.2 mg/dL] 0.4 mg/dL (06/10/2012 20:03:00) 2Interpretive Data: Interpretative Data: 100-125 = Impaired Fasting Glucose > or = 126 = Provisional diagnosis of diabetes. 3Interpretive Data: Interpretative Data: 100-125 = Impaired Fasting Glucose > or = 126 = Provisional diagnosis of diabetes. 4Interpretive Data: Interpretative Data: 100-125 = Impaired Fasting Glucose > or = 126 = Provisional diagnosis of diabetes. 5Interpretive Data: The presence of ketone bodies can cause artificially high results in serum, plasma and urine. 6Interpretive Data: The presence of ketone bodies can cause artificially high results in serum, plasma and urine. 7Result Comment: GFR calculated based on MDRD abbreviated formula. Age(years) Average GFR 20- 116 ml/min/1.73 m2 30-39 107 ml/min/1.73 m2 40-49 99 ml/min/1.73 m2 50-59 93 ml/min/1.73 m2 60-69 85 ml/min/1.73 m2 70+ 75 ml/min/1.73 m2 Acceptable GFR =>60 ml/min/1.73 m2 Chronic Kidney Disease <60 ml/min/1.73 m2 Kidney Failure <15 ml/min/1.73 m2 8Result Comment: GFR calculated based on MDRD abbreviated formula. Age(years) Average GFR 20- 116 ml/min/1.73 m2 30-39 107 ml/min/1.73 m2 40-49 99 ml/min/1.73 m2 50-59 93 ml/min/1.73 m2 60-69 85 ml/min/1.73 m2 70+ 75 ml/min/1.73 m2 Acceptable GFR =>60 ml/min/1.73 m2 Chronic Kidney Disease <60 ml/min/1.73 m2 Kidney Failure <15 ml/min/1.73 m2 9Result Comment: Estimated Creatinine Clearance calculated based on the Cockcroft-Gault formula. 10Result Comment: Estimated Creatinine Clearance calculated based on the Cockcroft-Gault formula. 11Interpretive Data: 0.09 - 0.49: *Possible cardiac damage and increased risk. Use in conjunction with history, appropriate symptoms and/or ECG changes. Serial measurements may help assess possiblity of myocardial infarction. Greater than or equal to 0.50: Suggestive of myocardial infarction. The "Point of Care" Troponin I test performed in the E.D. has a different Normal Range than the Troponin I performed in the Main Laboratory. Please see respecti ve Reference ranges. * Other non-acute coronary syndrome conditions, including tachycardia, coronary vasospasm, congestive heart failure, myocarditis, pulmonary embolus, sepsis and cardiac surgery could result in myocardial damage and increased troponin levels. 12Interpretive Data: - <0.03 Normal - 0.03-0.09 Possible cardiac damage & increased risk. Use in conjunction with history, appropriate symptoms and/or ECG changes. - >0.1 Suggestive of myocardial infarction. Note: Serial measurements may help assess possibility of myocardial infarction. Myocardial cell injury leading to elevated troponin T concentrations in the bloo d can also occur in other clinincal settings like congestive heart failure, card iomyopathy, myocarditis, heart contusion, renal failure, lung embolism, stroke, left ventricular dysfunction in septic shock and interventional therapy. 13Interpretive Data: - <0.03 Normal - 0.03-0.09 Possible cardiac damage & increased risk. Use in conjunction with history, appropriate symptoms and/or ECG changes. - >0.1 Suggestive of myocardial infarction. Note: Serial measurements may help assess possibility of myocardial infarction. Myocardial cell injury leading to elevated troponin T concentrations in the bloo d can also occur in other clinincal settings like congestive heart failure, card iomyopathy, myocarditis, heart contusion, renal failure, lung embolism, stroke, left ventricular dysfunction in septic shock and interventional therapy. 14Interpretive Data: - <0.03 Normal - 0.03-0.09 Possible cardiac damage & increased risk. Use in conjunction with history, appropriate symptoms and/or ECG changes. - >0.1 Suggestive of myocardial infarction. Note: Serial measurements may help assess possibility of myocardial infarction. Myocardial cell injury leading to elevated troponin T concentrations in the bloo d can also occur in other clinincal settings like congestive heart failure, card iomyopathy, myocarditis, heart contusion, renal failure, lung embolism, stroke, left ventricular dysfunction in septic shock and interventional therapy. URINE Most recent to oldest [Reference Range]: 1 2 3 UA Color Yellow (06/10/2012 22:47:00) UA pH [5.0-8.0] 6.5 (06/10/2012 22:47:00) UA Spec Grav [1.001-1.030] >=1.030 (06/10/2012 22:47:00) UA Glucose [Negative mg/dL] >=1000 mg/dL *ABN* (06/10/2012 22:47:00) UA Bili [Negative] Negative (06/10/2012 22:47:00) UA Ketones [Negative mg/dL] Trace mg/dL *ABN* (06/10/2012 22:47:00) UA Blood [Negative] Negative (06/10/2012 22:47:00) UA Protein [Negative mg/dL] Negative mg/dL (06/10/2012 22:47:00) UA Nitrite [Negative] Positive *ABN* (06/10/2012 22:47:00) UA Leuk Est [Negative] Negative (06/10/2012 22:47:00) UA Urobilinogen [0.2-1.0 EU per dL] 0.2 EU per dL (06/10/2012 22:47:00) UA Spec Type Clean Catch (06/10/2012 22:47:00) UA WBC [0-5 /hpf] 11-25 /hpf *ABN* (06/10/2012 22:47:00) UA RBC [0-5 /hpf] 0-5 /hpf (06/10/2012 22:47:00) UA Bacteria [Negative /hpf] Many /hpf *ABN* (06/10/2012 22:47:00) UA Epithelial [Negative to Few /hpf] Few /hpf (06/10/2012 22:47:00) Microscopic? Yes 15 *ABN* (06/10/2012 22:47:00) 15Interpretive Data: When result = No, Microscopic is not indicated. Specimen is held for 3 days. Call [phone] if further testing is needed. Procedures Procedures Date Related Diagnosis Esophagogastroduodenoscopy [EGD] with closed biopsy 06/10/2012 00:00:00 Upper gastrointestinal endoscopy including esophagus, 06/10/2012 00:00:00 stomach, and either the duodenum and/or jejunum as appropriate; with biopsy, single or mul tiple
--- OUTSIDE RECORDS SUMMARY | 2019-12-02 19:31 | XMS REPORT | Encounter Summary ---
Author Author [facility] Organization [facility] Address Unknown Phone Unavailable Care Team Providers Care Hatchery Helper Name Role Phone PCP Unavailable Encounter Details Care Team Description Date Type Department Allie Carlos DO [address] [place] [address] [phone] 01/02/2001 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/[place]/[id number] [place], [place] Name: RENETTA CHAUDHRY Jessy Date of B irth: 1940 Age: 60Y Room-B ed/Loc/Type: -// Check-in #: [id number] Attending Physician: ALLIE CARLOS Admitting Diagnosis: Procedure: MA SCREEN MAMMOGRAPHY BILA TERAL; 05129 Reason for Exam: V76.12;OTHER SCREENI NG MAMMOGRAM Requested by: ALLIE CARLOS Exam Ordered: 01/02/2001 10:28 Evonne Ramirez / Slim #: [id number] Exam: BILATERAL MAMMOGRAMS. Date of Exam: 01/02/01 Reason for Exam: Routine screening , history of uterine cancer. Bilateral film-screen mammography was p erformed in the craniocaudal and oblique mediolateral projections and co mpared with 10/02/99. There is minimal residual parenchyma in primaril y fatty breasts. The parenchymal pattern is unchanged since the previous examination. No dominant mass lesions, grouped malignant-appearing mi crocalcifications, or secondary findings of malignancy are noted. IMPRESSION: No radiographic evidence of malignancy. Bi-Rads Category: 1- Negative. Recommend ro utine annual follow-up examination. A few nodular densities are identified unchanged in the right breast. Electronically Authenticated by Proxy: Jarad El M.D. 01/03/2001 09:4 1:13 __ Emanuel Hawkins MD T: 2000 22:15:31 cc: In compliance with 42 CFR 494.54 (c) (3 ) of the "Conditions for Coverage of Screening Mammography," [facility] will mail to the patient a summary of the interpreting yadira hernandez's statement within 96 hours after dictation. Name: RENETTA CHAUDHRY Room-Bed/L oc/Type: -//TASHIA Admit Date: 01/02/2001 MEDICAL IMAGING CONSULTATION 1 OF 1 1 Procedure Note Interface, Rad Conversion - 01/14/2014 1:50 PM SPECIAL ASSEMBLIES SUPERVISOR Report RAD/[place]/[id number] [place], [place] Name: RENETTA CHAUDHRY Date of : 1940 Age: 60Y Room-Bed/Loc/Type: -//TASHIA Check-in #: [id number] Attending Physician: ALLIE CARLOS Admitting Diagnosis: Procedure: MA SCREEN MAMMOGRAPHY BILATERAL; 91261 Reason for Exam: V76.12;OTHER SCREENING MAMMOGRAM Requested by: ALLIE CARLOS Exam Ordered: 01/02/2001 10:28 Evonne # / Jacket #: [id number] Exam: BILATERAL MAMMOGRAMS. Date of Exam: 01/02/01 Reason for Exam: Routine screening, history of uterine cancer. Bilateral film-screen mammography was performed in the craniocaudal and oblique mediolateral projections and compared with 10/02/99. There is minimal residual parenchyma in primarily fatty breasts. The parenchymal pattern is unchanged since the previous examination. No dominant mass lesions, grouped malignant-appearing microcalcifications, or secondary findings of malignancy are noted. IMPRESSION: No radiographic evidence of malignancy. Bi-Rads Category: 1- Negative. Recommend routine annual follow-up examination. A few nodular densities are identified unchanged in the right breast. Electronically Authenticated by Proxy: Jarad El M.D. 01/03/2001 09:41:13 Emanuel Hawkins MD cc: In compliance with 42 CFR 494.54 (c) (3) of the "Conditions for Coverage of Screening Mammography," [facility] will mail to the patient a summary of the interpreting physician's statement within 96 hours after dictation. Name: RENETTA CHAUDHRY Room-Bed/Loc/Type: -//TASHIA Admit Date: 01/02/2001 MEDICAL IMAGING CONSULTATION 1 OF 1 1 Performing Organization Address City/State/Zipcode Ph one Number GABE documented in this encounter Visit Diagnoses Not on filedocumented in this encounter
--- OUTSIDE RECORDS SUMMARY | 2019-12-02 19:31 | XMS REPORT | CCD ---
Author Author Auto PORTILLO Guallpa Organization [facility] Address Unknown Phone Unavailable Care Team Providers Care Salesperson Terrazzo Tiles Name Role Phone PRASAD ORTEGA DO PP [phone] ARMOND CHESTER, DR. BUSTILLO CP [phone] REFERRING MD, NO RP Unavailable Allergies, Adverse [...] Medication Instructions Start Date End Date Status metFORMIN 250 mg, PO, BID (2 times a day), 0 08/10/2012 Ordered Refill(s) IndoCIN 50 mg, PO, TID (3 times a day), PRN 08/10/2012 Ordered as needed for pain, # 21 CAP, 0 Refill(s) pneumococcal 0.5 mL, SOLUTION, IM, Once, 08/10/2012 08/10/2012 Completed 23-polyvalent 08/10/12 19:00:00, Stop jan e vaccine 08/10/12 19:00:00, give on admission (Pneumovax) influenza virus 0.5 mL, SUSP, IM, Once, 08/10/12 08/10/2012 Completed vaccine, inactivated 19:00:00, Stop date 2 19:00:00, give on admission [place] 5/325 2 TAB, PO, Q4H (Every 4 hours), PRN 08/12/2012 Ordered Pain, # 60 TAB, 0 Refill(s), other reason (Rx) pneumococcal 0.5 mL, SOLUTION, IM, Once, 06/11/2012 06/11/2012 Completed 23-valent vaccine 06/11/12 0:00:00, Stop date 06/11/12 0:00:00, give on admission (Pneumovax) Immunizations Vaccine Date Status influenza virus vaccine 08/11/2012 Not Done pneumococcal 23-valent vaccine 06/11/2012 Not Don e pneumococcal 23-valent vaccine1 08/10/2012 Not Do ne 1Result Note: Pt already received. Vital Signs Most recent to oldest [Reference Range]: 1 Temperature [96.8-99.7 DegF] 98.6 DegF (08/12/2012 11:00:00) Temp Method Oral (08/12/2012 11:00:00) Heart Rate 87 bpm (08/12/2012 11:00:00) Heart Rate Location Continuous [place] (08/12/2012 07:00:00) Respiratory Rate [14-20 br/min] 18 br/min (08/12/2012 11:00:00) Inet NIBP Systolic [71-219 mmHg] 110 mmHg (08/12/2012 11:00:00) Inet NIBP Diastolic [50-90 mmHg] 58 mmHg (08/12/2012 11:00:00) NIBP MAP 73 mmHg (08/12/2012 10:00:00) NIBP MAP Calc 75 (08/12/2012 11:00:00) NIBP Alarms set and on Yes (08/11/2012 20:00:00) BP Location Arm, right (08/11/2012 20:00:00) BP Cuff Size Medium (08/11/2012 20:00:00) Heart Rhythm Sinus/atrial rhythm (08/12/2012 07:00:00) Secondary Heart Rhythm with PVC's (08/11/2012 02:00:00) Vital Signs Status Vital signs taken (08/10/2012 18:27:00) Results HEMATOLOGY Most recent to oldest [Reference Range]: 1 2 3 WBC [4.0-11.0 x10'3/microL] 6.3 x10'3/microL (08/12/2012 04:20:00) 6.7 x10'3/microL (08/10/2012 12:35:00) RBC [3.90-5.60 x10'6/microL] 4.59 x10'6/microL (08/12/2012 04:20:00) 5.06 x10'6/microL (08/10/2012 12:35:00) Hgb [12.0-16.0 g/dL] 13.0 g/dL (08/12/2012 04:20:00) 13.8 g/dL (08/10/2012 12:35:00) Hct [35-47 %] 38 % (08/12/2012 04:20:00) 42 % (08/10/2012 12:35:00) Platelet [140-400 x10'3/microL] 139 x10'3/microL *LOW* (08/12/2012 04:20:00) 156 x10'3/microL (08/10/2012 12:35:00) MCV [81-99 fL] 82 fL (08/12/2012 04:20:00) 83 fL (08/10/2012 12:35:00) MCH [27-34 pg] 28 pg (08/12/2012 04:20:00) 27 pg (08/10/2012 12:35:00) MCHC [32-36 g/dL] 34 g/dL (08/12/2012 04:20:00) 33 g/dL (08/10/2012 12:35:00) RDW [<=14.5 %] 14.0 % (08/12/2012 04:20:00) 14.3 % (08/10/2012 12:35:00) MPV [6.5-10.4 fL] 8.1 fL (08/12/2012 04:20:00) 9.2 fL (08/10/2012 12:35:00) Neutrophils % [44-76 %] 57 % (08/12/2012 04:20:00) 62 % (08/10/2012 12:35:00) Lymphocytes % [13-43 %] 27 % (08/12/2012 04:20:00) 25 % (08/10/2012 12:35:00) Monocytes % [0-13 %] 10 % (08/12/2012 04:20:00) 9 % (08/10/2012 12:35:00) Eosinophils % [0-7 %] 5 % (08/12/2012 04:20:00) 4 % (08/10/2012 12:35:00) Basophils % [0-3 %] 1 % (08/12/2012 04:20:00) 1 % (08/10/2012 12:35:00) Neutrophils Abs [1.4-7.2 x10'3/microL] 3.6 x10'3/micro L (08/12/2012 04:20:00) 4.1 x10'3/microL (08/10/2012 12:35:00) Lymphocytes Abs [1.2-3.4 x10'3/microL] 1.7 x10'3/micro L (08/12/2012 04:20:00) 1.7 x10'3/microL (08/10/2012 12:35:00) Monocytes Abs [0.1-0.6 x10'3/microL] 0.6 x10'3/microL (08/12/2012 04:20:00) 0.6 x10'3/microL (08/10/2012 12:35:00) Eosinophils Abs [0.0-0.5 x10'3/microL] 0.3 x10'3/micro L (08/12/2012 04:20:00) 0.3 x10'3/microL (08/10/2012 12:35:00) Basophils Abs [0.0-0.2 x10'3/microL] 0.1 x10'3/microL (08/12/2012 04:20:00) 0.0 x10'3/microL (08/10/2012 12:35:00) CHEMISTRY Most recent to oldest [Reference Range]: 1 2 3 Sodium [136-145 mmol/L] 137 mmol/L (08/12/2012 04:20:00) 138 mmol/L (08/10/2012 12:35:00) Potassium [3.5-5.1 mmol/L] 4.3 mmol/L (08/12/2012 04:20:00) 4.0 mmol/L (08/10/2012 12:35:00) Chloride [98-107 mmol/L] 100 mmol/L (08/12/2012 04:20:00) 102 mmol/L (08/10/2012 12:35:00) CO2 [22-29 mmol/L] 28 mmol/L (08/12/2012 04:20:00) 24 mmol/L (08/10/2012 12:35:00) AGAP [3-19 mmol/L] 9 mmol/L (08/12/2012 04:20:00) 12 mmol/L (08/10/2012 12:35:00) Glucose [70-100 mg/dL] 146 mg/dL *HI* (08/12/2012 04:20:00) 153 mg/dL *HI* (08/10/2012 12:35:00) Glucose Level (POC) [70-100 mg/dL] 148 mg/dL 1 *HI* (08/12/2012 17:22:00) 154 mg/dL 2 *HI* (08/12/2012 12:00:00) 163 mg/dL 3 *HI* (08/12/2012 07:24:00) BUN [8-20 mg/dL] 15 mg/dL (08/12/2012 04:20:00) 17 mg/dL (08/10/2012 12:35:00) Creatinine [0.7-1.2 mg/dL] 0.6 mg/dL 4 *LOW* (08/12/2012 04:20:00) 0.7 mg/dL 5 (08/10/2012 12:35:00) Calcium [8.6-10.2 mg/dL] 9.9 mg/dL (08/12/2012 04:20:00) 9.7 mg/dL (08/10/2012 12:35:00) GFR (MDRD) 97.0 mL/min/1.73 m2 6 *NA* (08/12/2012 04:20:00) 85.5 mL/min/1.73 m2 7 *NA* (08/10/2012 12:35:00) Est CrCL (CG) 72.1 mL/min 8 (08/12/2012 04:20:00) 59.7 mL/min 9 (08/10/2012 12:35:00) Albumin Level [3.5-5.2 g/dL] 4.0 g/dL (08/12/2012 04:20:00) 4.4 g/dL (08/10/2012 12:35:00) Total Protein [6.6-8.7 g/dL] 6.0 g/dL *LOW* (08/12/2012 04:20:00) 6.8 g/dL (08/10/2012 12:35:00) Troponin I (POC) [0.00-0.08 ng/mL] 0.00 ng/mL 10 (08/10/2012 12:41:00) Troponin T [0.00-0.03 ng/mL] <0.02 ng/mL 11 (08/11/2012 00:01:00) <0.02 ng/mL 12 (08/10/2012 19:35:00) Cholesterol [<=200 mg/dL] 215 mg/dL 13 *HI* (08/11/2012 05:40:00) HDL [>=60 mg/dL] 32 mg/dL 14 *LOW* (08/11/2012 05:40:00) LDL Direct [<=100 mg/dL] 141 mg/dL *HI* (08/11/2012 05:40:00) Chol/HDL Ratio [<=4.5] 6.7 *HI* (08/11/2012 05:40:00) Triglycerides [<=200 mg/dL] 298 mg/dL *HI* (08/11/2012 05:40:00) Alk Phos [40-130 Inter. Units/L] 66 Inter. Units/L (08/12/2012 04:20:00) 77 Inter. Units/L (08/10/2012 12:35:00) AST [0-40 Units/L] 19 Units/L (08/12/2012 04:20:00) 27 Units/L (08/10/2012 12:35:00) ALT [0-33 Inter. Units/L] 25 Inter. Units/L (08/12/2012 04:20:00) 30 Inter. Units/L (08/10/2012 12:35:00) Bili Total [0.0-1.2 mg/dL] 0.3 mg/dL (08/12/2012 04:20:00) 0.3 mg/dL (08/10/2012 12:35:00) 1Interpretive Data: Interpretative Data: 100-125 = Impaired Fasting Glucose > or = 126 = Provisional diagnosis of diabetes. 2Interpretive Data: Interpretative Data: 100-125 = Impaired Fasting Glucose > or = 126 = Provisional diagnosis of diabetes. 3Interpretive Data: Interpretative Data: 100-125 = Impaired Fasting Glucose > or = 126 = Provisional diagnosis of diabetes. 4Interpretive Data: The presence of ketone bodies can cause artificially high results in serum, plasma and urine. 5Interpretive Data: The presence of ketone bodies can cause artificially high results in serum, plasma and urine. 6Result Comment: GFR calculated based on MDRD abbreviated formula. Age(years) Average GFR 20-29 116 ml/min/1.73 m2 30-39 107 ml/min/1.73 m2 40-49 99 ml/min/1.73 m2 50-59 93 ml/min/1.73 m2 60-69 85 ml/min/1.73 m2 70+ 75 ml/min/1.73 m2 Acceptable GFR =>60 ml/min/1.73 m2 Chronic Kidney Disease <60 ml/min/1.73 m2 Kidney Failure <15 ml/min/1.73 m2 7Result Comment: GFR calculated based on MDRD abbreviated formula. Age(years) Average GFR 20-29 116 ml/min/1.73 m2 30-39 107 ml/min/1.73 m2 40-49 99 ml/min/1.73 m2 50-59 93 ml/min/1.73 m2 60-69 85 ml/min/1.73 m2 70+ 75 ml/min/1.73 m2 Acceptable GFR =>60 ml/min/1.73 m2 Chronic Kidney Disease <60 ml/min/1.73 m2 Kidney Failure <15 ml/min/1.73 m2 8Result Comment: Estimated Creatinine Clearance calculated based on the Cockcroft-Gault formula. 9Result Comment: Estimated Creatinine Clearance calculated based on the Cockcroft-Gault formula. 10Interpretive Data: 0.09 - 0.49: *Possible cardiac damage [...] in myocardial damage and increased troponin levels. 11Interpretive Data: - <0.03 Normal - 0.03-0.09 Possible [...] dysfunction in septic shock and interventional therapy. 12Interpretive Data: - <0.03 Normal - 0.03-0.09 [...] septic shock and interventional therapy. 13Interpretive Data: Low risk <200 mg/dl Borderline risk 201-239 mg/dl High risk 240 mg/dl and greater 14Interpretive Data: <40 Major risk factor for CHD > or = 60 Negative risk factor Procedures Procedures Date Related Diagnosis
--- OUTSIDE RECORDS SUMMARY | 2019-12-02 19:31 | XMS REPORT | Encounter Summary ---
Author Author [facility] Address Unknown Phone Unavailable Care Team Providers Care Dental Office Receptionist Name Role Phone PCP Unavailable Encounter Details Care Team Description Date Type Department CorbinKeith MD [address] [place], [place] [id number] 01/07/2003 [facility] Social [...]
--- OUTSIDE RECORDS SUMMARY | 2019-12-02 19:31 | XMS REPORT | Continuity of Care Document ---
Author Author Renetta Freeman Organization [facility] Address Unknown Phone Unavailable Care Team Providers Care Network Control Operator Name Role Phone Jameel CHESTER, Segundo WOLFE Unavailable Jameel CHESTER, Segundo RP Unavailable Payers Payer name Insurance type Covered alliance party ID Authorization(s ) Part B WPS MB [id number] Supp Generic OT [id number] Problems Condition Effective Dates (start - stop) Clinical Status Unknown Family History Family Member Diagnosis Age At Onset Status Unknown Social History Social History Element Description Quantity Unknown Allergies, Adverse Reactions, Alerts Substance Reaction Severity Status Unknown Medications Medication Instructions Dosage Effective Dates (start - sto p) Status Unknown Immunizations Vaccine Date Status Unknown Results Test Name Date and Time Measure Units Reference Range Abnormal F lag Comments Unknown Vital Signs Date / Time: Height Weight Pulse Rate Blood Pressure Temperat ure Unknown Procedures Procedure Date Electrocardiogram report Encounters Encounter Location Date Patient Visit [facility]ie [facility] EKG Advance Directives Directive Effective Date Unknown
--- OUTSIDE RECORDS SUMMARY | 2019-12-02 19:31 | XMS REPORT | Encounter Summary ---
Author Author [facility] Organization [facility] Address Unknown Phone Unavailable Care Team Providers Care Research Affiliate Name Role Phone PCP Unavailable Encounter Details Care Team Description Date Type Department Allie Carlos DO [address] [place] [address] [phone] 10/12/1999 [facility] Social History Date Tobacco Use Types Packs/Day [...] Associated Diag nosis MA MAMMO SCREENING Routine 10/12/1999 9:30 AM BLADE BALANCER documented in this encounter Results * MA Mammo screening (10/12/1999 9:30 AM BLADE BALANCER) Specimen Narrative Performed At Report [facility]/austine/[id number] [place], [place] Name: RENETTA CHAUDHRY Date of B irth: 1940 Age: 59Y Room-B ed/Loc/Type: -// Check-in #: [id number] Attending Physician: ALLIE CARLOS Admitting Diagnosis: Procedure: MA SCREEN MAMMOGRAPHY BILA TERAL; 76528 Reason for Exam: V76.12;OTH SCREEN MA MMOGRAM SUSAN Requested by: ALLIE CARLOS Date of Exam: 10/12/1999 10:03 Evonne James / Slim #: [id number] Exam: BILATERAL MAMMOGRAM. Reason for Exam: Screening. Comparison is made with the previous ex am [facility]. Fibroglandular parenchyma is identified bilaterally. No irregular dominant masses or suspicious clustered microcal cifications are seen. There is no architectural distortion. There is no skin thickening or retraction. IMPRESSION: Fibroglandular parenchym a with without mammographic evidence to suggest malignancy. Elisabet nued follow-up on a yearly basis is suggested. Bi-Rads Category: 1- Negative. Electronically Authenticated by Proxy: Jarad El M.D. 10/13/1999 08:4 2:53 __ Mabel Jurado M.D. T: 1998 22:57:51 cc: MALCOLM SUTTON In compliance with 42 CFR 494.54 (c) (3 ) of the "Conditions for Coverage of Screening Mammography," [facility] will mail to the patient a summary of the interpreting yadira hernandez's statement within 96 hours Name: RENETTA CHAUDHRY Jessy Room-Bed/L oc/Type: -//TASHIA Admit Date: 10/12/1999 MEDICAL IMAGING CONSULTATION 1 OF 1 Procedure Note Interface, Rad Conversion - 01/14/2014 5:40 AM BLADE BALANCER Report RAD/austine/741123 [place], [place] Name: RENETTA CHAUDHRY Date of : 1940 Age: 59Y Room-Bed/Loc/Type: -//TASHIA Check-in #: [id number] Attending Physician: ALLIE TERRANCE Admitting Diagnosis: Procedure: MA SCREEN MAMMOGRAPHY BILATERAL; 56525 Reason for Exam: V76.12;OTH SCREEN MAMMOGRAM SUSAN Requested by: ALLIE CARLOS Date of Exam: 10/12/1999 10:03 Evonne # / Jackjf #: [id number] Exam: BILATERAL MAMMOGRAM. Reason for Exam: Screening. Comparison is made with the previous exam dated 09-01-98 from [facility]. Fibroglandular parenchyma is identified bilaterally. No irregular dominant masses or suspicious clustered microcalcifications are seen. There is no architectural distortion. There is no skin thickening or retraction. IMPRESSION: Fibroglandular parenchyma with without mammographic evidence to suggest malignancy. Continued follow-up on a yearly basis is suggested. Bi-Rads Category: 1- Negative. Electronically Authenticated by Proxy: Jarad El M.D. 10/13/1999 08:42:53 Mabel Jurado M.D. cc: ALLIE CARLOS [facility] Attending physician In compliance with 42 CFR 494.54 (c) (3) of the "Conditions for Coverage of Screening Mammography," [facility] will mail to the patient a summary of the interpreting physician's statement within 96 hours Name: RENETTA CHAUDHRY Room-Bed/Loc/Type: -//TASHIA Admit Date: 10/12/1999 MEDICAL IMAGING CONSULTATION 1 OF 1 1 [facility] Organization Address City/State/Zipcode Ph one Number [facility] documented in this encounter Visit Diagnoses Not on filedocumented in this encounter
--- OUTSIDE RECORDS SUMMARY | 2019-12-02 19:31 | XMS REPORT | Continuity of Care Document ---
Author Author Renetta Freeman Organization [facility] Physicians [facility] Address Unknown Phone Unavailable Care Team Providers Care Pi/Senior Research Associate Name Role Phone Jameel CHESTER, Segundo WOLFE Unavailable Jarad Alvarez RP Unavailable Payers Payer name Insurance type Covered democrat ID Authorization(s ) Part B WPS MB [id number] Supp Generic OT [id number] Problems Condition Effective Dates (start - stop) Clinical Status Unknown Family History Family Member Diagnosis Age At Onset Status Unknown Social History Social History Element Description Quantity Unknown Allergies, Adverse Reactions, Alerts Substance Reaction Severity Status Unknown Medications Medication Instructions Dosage Effective Dates (start - sto p) Status Unknown Immunizations Vaccine Date Status Comments Unknown Results Test Name Date and Time Measure Units Reference Range Abnormal F lag Comments Unknown Vital Signs Date / Time: Height Weight Pulse Rate Blood Pressure Temperat ure Unknown Procedures Procedure Date Electrocardiogram report Encounters Encounter Location Date Patient Visit [facility]ie [facility] EKG Advance Directives Directive Effective Date Unknown
--- OUTSIDE RECORDS SUMMARY | 2019-12-11 10:42 | XMS REPORT ---
Author Author Renetta LEON Organization [facility] Address [address] [place] [address] Care Team Providers Care Entry Level Marketing Representative Name Role Phone SCOTT LEON Unavailable PROBLEMS Type Condition ICD9-CM Code [id number] Code Onset Dates Condition S tatus SNOMED Code Problem Severe episode of recurrent major depressive disorder, without 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 Active 20659634 Problem Major depressive disorder, recurrent episode, unspecified F33.9 Active 704146121 Problem Generalized anxiety disorder F41.1 A ctive 32293350 Problem Major depressive disorder, recurrent episode, moderate F33.1 Active [id number] ALLERGIES No Information ENCOUNTERS Encounter Location Date Diagnosis [facility] [address] [facility] [id number] [address] [place] [phone] Aug, [facility] [address] [id number] [address] [place] [phone] Jul, [facility] [address] [id number] [address] [place] [phone] Jun, [facility] [address] [facility] [id number] [address] [place] [phone] Jun, [facility] [address] [facility] [id number] [address] [place] [phone] Jun, Severe episode of recurrent major depressive disorder, without 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 and Generalized anxiety disorder F41.1 [facility] [address] [id number] [address] [place] [phone] May, Major depressive disorder, r ecurrent episode, unspecified F33.9 and Generalized anxiety disorder F41.1 [facility] [address] [facility] [id number] [address] [place] [phone] May, Major depressive disorder, r ecurrent episode, unspecified F33.9 and Generalized anxiety disorder F41.1 [place] [address] [id number] [address] [place] [phone] Apr, Major depressive disorder, r ecurrent episode, unspecified F33.9 and Generalized anxiety disorder F41.1 [place] [address] [id number] [address] [place] [phone] Apr, Major depressive disorder, r ecurrent episode, unspecified F33.9 and Generalized anxiety disorder F41.1 [place] [address] [id number] [address] [place] [phone] March, Major depressive disorder, r ecurrent episode, unspecified F33.9 and Generalized anxiety disorder F41.1 [place] [address] [facility] [id number] [address] [place] [phone] March, Major depressive disorder, r ecurrent episode, unspecified F33.9 and Generalized anxiety disorder F41.1 [place] [address] [facility] [id number] [address] [place] [phone] March, Major depressive disorder, r ecurrent episode, unspecified F33.9 and Generalized anxiety disorder F41.1 [place] [address] [facility] [id number] [address] [place] [phone] Feb, Major depressive disorder, r ecurrent episode, unspecified F33.9 and Generalized anxiety disorder F41.1 [place] [address] [facility] [id number] [address] [place] [phone] Feb, Major depressive disorder, r ecurrent episode, unspecified F33.9 and Generalized anxiety disorder F41.1 [place] [address] [facility] [id number] [address] [place] [phone] Feb, Major depressive disorder, r ecurrent episode, unspecified F33.9 and Generalized anxiety disorder F41.1 [place] [address] [facility] [id number] [address] [place] [phone] Jan, Major depressive disorder, r ecurrent episode, unspecified F33.9 and Generalized anxiety disorder F41.1 [facility] [address] [id number] [address] [place] [phone] Jan, Major depressive disorder, r ecurrent episode, unspecified F33.9 and Generalized anxiety disorder F41.1 [place] [address] [id number] [address] [place] [phone] Dec, Major depressive disorder, r ecurrent episode, unspecified F33.9 and Generalized anxiety disorder F41.1 [place] [address] [id number] [address] [place] [phone] Dec, Major depressive disorder, r ecurrent episode, unspecified F33.9 and Generalized anxiety disorder F41.1 [place] [address] [facility] [id number] [address] [place] [phone] Nov, Major depressive disorder, r ecurrent episode, unspecified F33.9 and Generalized anxiety disorder F41.1 [place] [address] [facility] [id number] [address] [place] [phone] Jun, Generalized anxiety disorder F41.1 and Major depressive disorder, recurrent episode, moderate F33.1 [place] [address] [facility] [id number] [address] [place] [phone] Jun, Generalized anxiety disorder F41.1 and Major depressive disorder, recurrent episode, moderate F33.1 [place] [address] [facility] [id number] [address] [place] [phone] May, Generalized anxiety disorder F41.1 and Major depressive disorder, recurrent episode, moderate F33.1 [place] [address] [id number] [address] [place] [phone] Apr, Generalized anxiety disorder F41.1 and Major depressive disorder, recurrent episode, moderate F33.1 [place] [address] [facility] [id number] [address] [place] [phone] Apr, Generalized anxiety disorder F41.1 and Major depressive disorder, recurrent episode, moderate F33.1 [place] [address] [facility] [id number] [address] [place] [phone] Apr, Generalized anxiety disorder F41.1 and Major depressive disorder, recurrent episode, moderate F33.1 [facility] [address] [facility] [id number] [address] [place] [phone] March, Generalized anxiety disorder F41.1 and Major depressive disorder, recurrent episode, moderate F33.1 [facility] [address] [facility] [id number] [address] [place] [phone] March, Generalized anxiety disorder F41.1 and Major depressive disorder, recurrent episode, moderate F33.1 [facility] [address] [facility] [id number] [address] [place] [phone] Feb, Generalized anxiety disorder F41.1 and Major depressive disorder, recurrent episode, moderate F33.1 [facility] [address] [facility] [id number] [address] [place] [phone] Jan, Generalized anxiety disorder F41.1 and Major depressive disorder, recurrent episode, moderate F33.1 IMMUNIZATIONS No Known Immunizations SOCIAL HISTORY Never Assessed REASON FOR VISIT f/u, Depression and anxiety. PLAN OF CARE Activity Details Follow Up Next available Reason:depres subhash and anxiety VITAL SIGNS MEDICATIONS Unknown Medications RESULTS No Results PROCEDURES Procedure Date Ordered Result Body Site [facility] VISIT MENTAL HEALTH ESTAB PT March 27, 2018 Psychotherapy, patient &/family, 45 minutes, established patient March 27, 2018 INSTRUCTIONS MEDICATIONS ADMINISTERED No Known Medications
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
--- OUTSIDE RECORDS SUMMARY | 2019-12-11 10:42 | XMS REPORT ---
Author Author Renetta LEON Organization [facility] Address [address] [place] [address] Care Team Providers Care Mold Clamper Name Role Phone SCOTT LEON Unavailable PROBLEMS Type Condition ICD9-CM Code CIH87-CB Code Onset Dates Condition S tatus SNOMED Code Problem Major depressive disorder, recurrent episode, unspecified F33.9 Active [id number] Problem Generalized anxiety disorder F41.1 A ctive [id number] Problem Major depressive disorder, recurrent episode, moderate F33.1 Active [id number] ALLERGIES No Information ENCOUNTERS Encounter Location Date Diagnosis [place] [address] [facility] [id number] [address] [place] [phone] Jun, [place] [address] [id number] [address] [place] [phone] Jun, [place] [address] [id number] [address] [place] [phone] May, Major depressive disorder, r ecurrent episode, unspecified F33.9 and Generalized anxiety disorder F41.1 [place] [address] [facility] [id number] [address] [place] [phone] May, Major depressive disorder, r ecurrent episode, unspecified F33.9 and Generalized anxiety disorder F41.1 [facility] [address] [id number] [address] [place] [phone] Apr, Major depressive disorder, r ecurrent episode, unspecified F33.9 and Generalized anxiety disorder F41.1 [place] [address] [id number] [address] [place] [address] Apr, Major depressive disorder, r ecurrent episode, unspecified F33.9 and Generalized anxiety disorder F41.1 [place] [address] [id number] [address] [place] [phone] March, Major depressive disorder, r ecurrent episode, unspecified F33.9 and Generalized anxiety disorder F41.1 [place] [address] [facility] [id number] [address] [place] [phone] March, Major depressive disorder, r ecurrent episode, unspecified F33.9 and Generalized anxiety disorder F41.1 [place] [address] [facility] [id number] [address] [place] [phone] March, Major depressive disorder, r ecurrent episode, unspecified F33.9 and Generalized anxiety disorder F41.1 [place] [address] [facility] [id number] [address] [place] [address] Feb, Major depressive disorder, r ecurrent episode, unspecified F33.9 and Generalized anxiety disorder F41.1 [place] [address] [facility] [id number] [address] [place] [phone] Feb, Major depressive disorder, r ecurrent episode, unspecified F33.9 and Generalized anxiety disorder F41.1 [place] [address] [facility] [id number] [address] [place] [address] Feb, Major depressive disorder, r ecurrent episode, unspecified F33.9 and Generalized anxiety disorder F41.1 [place] [address] [facility] [id number] [address] [place] [address] Jan, Major depressive disorder, r ecurrent episode, unspecified F33.9 and Generalized anxiety disorder F41.1 [place] [address] [facility] [id number] [address] [place] [phone] Jan, Major depressive disorder, r ecurrent episode, unspecified F33.9 and Generalized anxiety disorder F41.1 [place] [address] [facility] [id number] [address] [place] [address] Dec, Major depressive disorder, r ecurrent episode, unspecified F33.9 and Generalized anxiety disorder F41.1 [place] [address] [facility] [id number] [address] [place] [phone] Dec, Major depressive disorder, r ecurrent episode, unspecified F33.9 and Generalized anxiety disorder F41.1 [facility] [address] [id number] [address] [place] [phone] Nov, Major depressive disorder, r ecurrent episode, unspecified F33.9 and Generalized anxiety disorder F41.1 [facility] [address] [id number] [address] [place] [address] Jun, Generalized anxiety disorder F41.1 and Major depressive disorder, recurrent episode, moderate F33.1 [facility] [address] [id number] [address] [place] [address] Jun, Generalized anxiety disorder F41.1 and Major depressive disorder, recurrent episode, moderate F33.1 [place] [address] [id number] [address] [place] [phone] May, Generalized anxiety disorder F41.1 and Major depressive disorder, recurrent episode, moderate F33.1 [facility] [address] [id number] [address] [place] [address] Apr, Generalized anxiety disorder F41.1 and Major depressive disorder, recurrent episode, moderate F33.1 [facility] [address] [id number] [address] [place] [address] Apr, Generalized anxiety disorder F41.1 and Major depressive disorder, recurrent episode, moderate F33.1 [facility] [address] [id number] [address] [place] [address] Apr, Generalized anxiety disorder F41.1 and Major depressive disorder, recurrent episode, moderate F33.1 [facility] [address] [id number] [address] [place] [phone] March, Generalized anxiety disorder F41.1 and Major depressive disorder, recurrent episode, moderate F33.1 [facility] [address] [id number] [address] [place] [address] March, Generalized anxiety disorder F41.1 and Major depressive disorder, recurrent episode, moderate F33.1 [facility] [address] [facility] [id number] [address] [place] [address] Feb, Generalized anxiety disorder F41.1 and Major depressive disorder, recurrent episode, moderate F33.1 [facility] [address] [facility] [id number] [address] [place] [address] Jan, Generalized anxiety disorder F41.1 and Major depressive disorder, recurrent episode, moderate F33.1 IMMUNIZATIONS No Known Immunizations SOCIAL HISTORY Never Assessed REASON FOR VISIT f/u, Depression and anxiety. PLAN OF CARE Activity Details Follow Up 1 Week Reason:depression VITAL SIGNS MEDICATIONS Unknown Medications RESULTS No Results PROCEDURES Procedure Date Ordered Result Body Site [facility] VISIT MENTAL HEALTH ESTAB PT February 24, 2018 Psychotherapy, patient &/family, 45 minutes, established pat ient February 24, 2018 INSTRUCTIONS MEDICATIONS ADMINISTERED No Known Medications
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
--- OUTSIDE RECORDS SUMMARY | 2019-12-11 10:42 | XMS REPORT ---
Author Author Renetta LEON Organization [facility] Address [address] [place] [address] Care Team Providers Care Sheet Manufacturing Supervisor Name Role Phone SCOTT LEON Unavailable PROBLEMS Type Condition ICD9-CM Code CBH03-ER Code Onset Dates Condition S tatus SNOMED Code Problem Major depressive disorder, recurrent episode, unspecified F33.9 Active 293453498 Problem Generalized anxiety disorder F41.1 A ctive 87379803 Problem Major depressive disorder, recurrent episode, moderate F33.1 Active 220752012 ALLERGIES No Information ENCOUNTERS Encounter Location Date Diagnosis [place] [address] [id number] [address] [place] [phone] Jun, [place] [address] [id number] [address] [place] [address] Jun, [place] [address] [id number] [address] [place] [phone] May, Major depressive disorder, r ecurrent episode, unspecified F33.9 and Generalized anxiety disorder F41.1 [place] [address] [address] [facility] [id number] [address] [place] [address] May, Major depressive disorder, r ecurrent episode, unspecified F33.9 and Generalized anxiety disorder F41.1 [facility] [address] [id number] [address] [place] [address] Apr, Major depressive disorder, r ecurrent episode, unspecified F33.9 and Generalized anxiety disorder F41.1 [place] [address] [id number] [address] [place] [phone] Apr, Major depressive disorder, r ecurrent episode, unspecified F33.9 and Generalized anxiety disorder F41.1 [place] [address] [id number] [address] [place] [address] March, Major depressive disorder, r ecurrent episode, unspecified F33.9 and Generalized anxiety disorder F41.1 [place] [address] [facility] [id number] [address] [place] [address] March, Major depressive disorder, r ecurrent episode, unspecified F33.9 and Generalized anxiety disorder F41.1 [place] [address] [facility] [id number] [address] [place] [phone] March, Major depressive disorder, r ecurrent episode, unspecified F33.9 and Generalized anxiety disorder F41.1 [place] [address] [facility] [id number] [address] [place] [address] Feb, Major depressive disorder, r ecurrent episode, unspecified F33.9 and Generalized anxiety disorder F41.1 [place] [address] [facility] [id number] [address] [place] [phone] Feb, Major depressive disorder, r ecurrent episode, unspecified F33.9 and Generalized anxiety disorder F41.1 [place] [address] [facility] [id number] [address] [place] [address] Feb, Major depressive disorder, r ecurrent episode, unspecified F33.9 and Generalized anxiety disorder F41.1 [place] [address] [facility] [id number] [address] [place] [address] Jan, Major depressive disorder, r ecurrent episode, unspecified F33.9 and Generalized anxiety disorder F41.1 [place] [address] [facility] [id number] [address] [place] [phone] Jan, Major depressive disorder, r ecurrent episode, unspecified F33.9 and Generalized anxiety disorder F41.1 [place] [address] [facility] [id number] [address] [place] [phone] Dec, Major depressive disorder, r ecurrent episode, unspecified F33.9 and Generalized anxiety disorder F41.1 [place] [address] [facility] [id number] [address] [place] [address] Dec, Major depressive disorder, r ecurrent episode, unspecified F33.9 and Generalized anxiety disorder F41.1 [facility] [address] [id number] [address] [place] [phone] Nov, Major depressive disorder, r ecurrent episode, unspecified F33.9 and Generalized anxiety disorder F41.1 [facility] [address] [id number] [address] [place] [address] Jun, Generalized anxiety disorder F41.1 and Major depressive disorder, recurrent episode, moderate F33.1 [facility] [address] [id number] [address] [place] [phone] Jun, Generalized anxiety disorder F41.1 and Major depressive disorder, recurrent episode, moderate F33.1 [place] [address] [id number] [address] [place] [address] May, Generalized anxiety disorder F41.1 and Major depressive disorder, recurrent episode, moderate F33.1 [facility] [address] [id number] [address] [place] [address] Apr, Generalized anxiety disorder F41.1 and Major depressive disorder, recurrent episode, moderate F33.1 [facility] [address] [id number] [address] [place] [phone] Apr, Generalized anxiety disorder F41.1 and Major depressive disorder, recurrent episode, moderate F33.1 [facility] [address] [id number] [address] [place] [address] Apr, Generalized anxiety disorder F41.1 and Major depressive disorder, recurrent episode, moderate F33.1 [facility] [address] [id number] [address] [place] [address] March, Generalized anxiety disorder F41.1 and Major depressive disorder, recurrent episode, moderate F33.1 [facility] [address] [id number] [address] [place] [address] March, Generalized anxiety disorder F41.1 and Major depressive disorder, recurrent episode, moderate F33.1 [facility] [address] [facility] [id number] [address] [place] [address] Feb, Generalized anxiety disorder F41.1 and Major depressive disorder, recurrent episode, moderate F33.1 [facility] [address] [facility] [id number] [address] [place] [address] Jan, Generalized anxiety disorder F41.1 and Major depressive disorder, recurrent episode, moderate F33.1 IMMUNIZATIONS No Known Immunizations SOCIAL HISTORY Never Assessed REASON FOR VISIT f/u, Depression and anxiety. PLAN OF CARE Activity Details Follow Up 2 Weeks Reason:depression an d anxiety VITAL SIGNS MEDICATIONS Unknown Medications RESULTS No Results PROCEDURES Procedure Date Ordered Result Body Site [facility] VISIT MENTAL HEALTH ESTAB PT March 17, 2018 Psychotherapy, patient &/family, 45 minutes, established patient March 17, 2018 INSTRUCTIONS MEDICATIONS ADMINISTERED No Known Medications
--- OUTSIDE RECORDS SUMMARY | 2019-12-11 10:42 | XMS REPORT ---
Author Author Renetta LEON Organization [facility] Address [address] [place] [address] Care Team Providers Care Educational Interpreter Name Role Phone SCOTT LEON Unavailable PROBLEMS Type Condition ICD9-CM Code GMD80-II Code Onset Dates Condition S tatus SNOMED Code Problem Major depressive disorder, recurrent episode, unspecified F33.9 Active 422278279 Problem Generalized anxiety disorder F41.1 A ctive 27318184 Problem Major depressive disorder, recurrent episode, moderate F33.1 Active [id number] ALLERGIES No Information ENCOUNTERS Encounter Location Date Diagnosis [place] [address] [id number] [address] [place] [phone] Jun, [place] [address] [id number] [address] [place] [phone] Jun, [place] [address] [id number] [address] [place] [address] May, Major depressive disorder, r ecurrent episode, unspecified F33.9 and Generalized anxiety disorder F41.1 [place] [address] [address] [facility] [id number] [address] [place] [phone] May, Major depressive disorder, r ecurrent episode, unspecified F33.9 and Generalized anxiety disorder F41.1 [facility] [address] [id number] [address] [place] [address] Apr, Major depressive disorder, r ecurrent episode, unspecified F33.9 and Generalized anxiety disorder F41.1 [place] [address] [id number] [address] [place] [address] Apr, Major depressive disorder, r ecurrent episode, unspecified F33.9 and Generalized anxiety disorder F41.1 [place] [address] [id number] [address] [place] [address] March, Major depressive disorder, r ecurrent episode, unspecified F33.9 and Generalized anxiety disorder F41.1 [place] [address] [address] [facility] [id number] [address] [place] [address] March, Major depressive disorder, r ecurrent episode, unspecified F33.9 and Generalized anxiety disorder F41.1 [place] [address] [address] [facility] [id number] [address] [place] [address] March, Major depressive disorder, r ecurrent episode, unspecified F33.9 and Generalized anxiety disorder F41.1 [place] [address] [facility] [id number] [address] [place] [phone] Feb, Major depressive disorder, r ecurrent episode, unspecified F33.9 and Generalized anxiety disorder F41.1 [place] [address] [address] [facility] [id number] [address] [place] [address] Feb, Major depressive disorder, r ecurrent episode, unspecified F33.9 and Generalized anxiety disorder F41.1 [place] [address] [address] [facility] [id number] [address] [place] [phone] Feb, Major depressive disorder, r ecurrent episode, unspecified F33.9 and Generalized anxiety disorder F41.1 [place] [address] [address] [facility] [id number] [address] [place] [address] Jan, Major depressive disorder, r ecurrent episode, unspecified F33.9 and Generalized anxiety disorder F41.1 [place] [address] [address] [facility] [id number] [address] [place] [phone] Jan, Major depressive disorder, r ecurrent episode, unspecified F33.9 and Generalized anxiety disorder F41.1 [place] [address] [facility] [id number] [address] [place] [address] Dec, Major depressive disorder, r ecurrent episode, unspecified F33.9 and Generalized anxiety disorder F41.1 [place] [address] [address] [facility] [id number] [address] [place] [address] Dec, Major depressive disorder, r ecurrent episode, unspecified F33.9 and Generalized anxiety disorder F41.1 [facility] [address] [id number] [address] [place] [address] Nov, Major depressive disorder, r ecurrent episode, unspecified F33.9 and Generalized anxiety disorder F41.1 [facility] [address] [id number] [address] [place] [address] Jun, Generalized anxiety disorder F41.1 and Major depressive disorder, recurrent episode, moderate F33.1 [facility] [address] [id number] [address] [place] [phone] Jun, Generalized anxiety disorder F41.1 and Major depressive disorder, recurrent episode, moderate F33.1 [place] [address] [id number] [address] [place] [phone] May, Generalized anxiety disorder F41.1 and Major depressive disorder, recurrent episode, moderate F33.1 [facility] [address] [id number] [address] [place] [phone] Apr, Generalized anxiety disorder F41.1 and Major depressive disorder, recurrent episode, moderate F33.1 [facility] [address] [id number] [address] [place] [phone] Apr, Generalized anxiety disorder F41.1 and Major depressive disorder, recurrent episode, moderate F33.1 [facility] [address] [id number] [address] [place] [phone] Apr, Generalized anxiety disorder F41.1 and Major depressive disorder, recurrent episode, moderate F33.1 [facility] [address] [id number] [address] [place] [phone] March, Generalized anxiety disorder F41.1 and Major depressive disorder, recurrent episode, moderate F33.1 [facility] [address] [id number] [address] [place] [phone] March, Generalized anxiety disorder F41.1 and Major depressive disorder, recurrent episode, moderate F33.1 [facility] [address] [facility] [id number] [address] [place] [address] Feb, Generalized anxiety disorder F41.1 and Major depressive disorder, recurrent episode, moderate F33.1 [facility] [address] [facility] [id number] [address] [place] [address] Jan, Generalized anxiety disorder F41.1 and Major depressive disorder, recurrent episode, moderate F33.1 IMMUNIZATIONS No Known Immunizations SOCIAL HISTORY Never Assessed REASON FOR VISIT f/u, Depression and anxiety. PLAN OF CARE Activity Details Follow Up 1 Week Reason:depression and anxiety VITAL SIGNS MEDICATIONS Unknown Medications RESULTS No Results PROCEDURES Procedure Date Ordered Result Body Site [facility] VISIT MENTAL HEALTH ESTAB PT February 17, 2018 Psychotherapy, patient &/family, 45 minutes, established pat [email or web address] February 17, 2018 INSTRUCTIONS MEDICATIONS ADMINISTERED No Known Medications
--- OUTSIDE RECORDS SUMMARY | 2019-12-11 10:42 | XMS REPORT ---
Author Author Renetta LEON Organization [facility] Address [address] [place] [address] Care Team Providers Care Policy Services Representative Name Role Phone SCOTT LEON Unavailable PROBLEMS Type Condition ICD9-CM Code NLK02-BV Code Onset Dates Condition S tatus SNOMED Code Problem Recurrent major depressive disorder, in partial remission F33.41 Active 79561944 Problem Severe episode of recurrent major depressive disorder, without 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 Active 00312038 Problem Major depressive disorder, recurrent episode, moderate F33.1 Active 513054399 Problem Major depressive disorder, recurrent episode, unspecified F33.9 Active 948433711 Problem Generalized anxiety disorder F41.1 A ctive [id number] ALLERGIES No Information ENCOUNTERS Encounter Location Date Diagnosis [place] [address] [address] [facility] [id number] [address] [place] [phone] Aug, [place] [address] [address] [facility] [id number] [address] [place] [phone] Aug, [place] [address] [address] [facility] [id number] [address] [place] [phone] Jul, [place] [address] [address] [facility] [id number] [address] [place] [phone] Jun, [place] [address] [address] [facility] [id number] [address] [place] [phone] Jun, Generalized anxiety disorder F41.1 and Recurrent major depressive disorder, in partial remission F33.41 [facility] [address] [facility] [id number] [address] [place] [phone] Jun, Severe episode of recurrent major depressive disorder, without 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 and Generalized anxiety disorder F41.1 [place] [address] [address] [facility] [id number] [address] [place] [address] May, Major depressive disorder, r ecurrent episode, unspecified F33.9 and Generalized anxiety disorder F41.1 [place] [address] [facility] [id number] [address] [place] [address] May, Major depressive disorder, r ecurrent episode, unspecified F33.9 and Generalized anxiety disorder F41.1 [place] [address] [address] [facility] [id number] [address] [place] [phone] Apr, Major depressive disorder, r ecurrent episode, unspecified F33.9 and Generalized anxiety disorder F41.1 [place] [address] [id number] [address] [place] [phone] Apr, Major depressive disorder, r ecurrent episode, unspecified F33.9 and Generalized anxiety disorder F41.1 [place] [address] [address] [facility] [id number] [address] [place] [phone] March, Major depressive disorder, r ecurrent episode, unspecified F33.9 and Generalized anxiety disorder F41.1 [place] [address] [address] [facility] [id number] [address] [place] [phone] March, Major depressive disorder, r ecurrent episode, unspecified F33.9 and Generalized anxiety disorder F41.1 [place] [address] [address] [facility] [id number] [address] [place] [phone] March, Major depressive disorder, r ecurrent episode, unspecified F33.9 and Generalized anxiety disorder F41.1 [place] [address] [address] [facility] [id number] [address] [place] [phone] Feb, Major depressive disorder, r ecurrent episode, unspecified F33.9 and Generalized anxiety disorder F41.1 [place] [address] [address] [facility] [id number] [address] [place] [phone] Feb, Major depressive disorder, r ecurrent episode, unspecified F33.9 and Generalized anxiety disorder F41.1 [place] [address] [address] [facility] [id number] [address] [place] [phone] Feb, Major depressive disorder, r ecurrent episode, unspecified F33.9 and Generalized anxiety disorder F41.1 [place] [address] [id number] [address] [place] [phone] Jan, Major depressive disorder, r ecurrent episode, unspecified F33.9 and Generalized anxiety disorder F41.1 [place] [address] [id number] [address] [place] [phone] Jan, Major depressive disorder, r ecurrent episode, unspecified F33.9 and Generalized anxiety disorder F41.1 [place] [address] [id number] [address] [place] [phone] Dec, Major depressive disorder, r ecurrent episode, unspecified F33.9 and Generalized anxiety disorder F41.1 [place] [address] [id number] [address] [place] [phone] Dec, Major depressive disorder, r ecurrent episode, unspecified F33.9 and Generalized anxiety disorder F41.1 [place] [address] [id number] [address] [place] [phone] Nov, Major depressive disorder, r ecurrent episode, unspecified F33.9 and Generalized anxiety disorder F41.1 [place] [address] [id number] [address] [place] [phone] Jun, Generalized anxiety disorder F41.1 and Major depressive disorder, recurrent episode, moderate F33.1 [place] [address] [id number] [address] [place] [phone] Jun, Generalized anxiety disorder F41.1 and Major depressive disorder, recurrent episode, moderate F33.1 [place] [address] [id number] [address] [place] [phone] May, Generalized anxiety disorder F41.1 and Major depressive disorder, recurrent episode, moderate F33.1 [place] [address] [id number] [address] [place] [phone] Apr, Generalized anxiety disorder F41.1 and Major depressive disorder, recurrent episode, moderate F33.1 [facility] [address] [facility] [id number] [address] [place] [phone] Apr, Generalized anxiety disorder F41.1 and Major depressive disorder, recurrent episode, moderate F33.1 [facility] [address] [facility] [id number] [address] [place] [phone] Apr, Generalized anxiety disorder F41.1 and Major depressive disorder, recurrent episode, moderate F33.1 [facility] [address] [facility] [id number] [address] [place] [phone] March, Generalized anxiety disorder F41.1 and Major depressive disorder, recurrent episode, moderate F33.1 [place] [address] [address] [facility] [id number] [address] [place] [phone] March, Generalized anxiety disorder F41.1 and Major depressive disorder, recurrent episode, moderate F33.1 [facility] [address] [place] [id number] [address] [place] [phone] Feb, Generalized anxiety disorder F41.1 and Major depressive disorder, recurrent episode, moderate F33.1 [facility] [address] [place] [id number] [address] [place] [phone] Jan, Generalized anxiety disorder F41.1 and Major depressive disorder, recurrent episode, moderate F33.1 IMMUNIZATIONS No Known Immunizations SOCIAL HISTORY Never Assessed REASON FOR VISIT BH f/u, Depression and anxiety. PLAN OF CARE Activity Details Follow Up 2 Weeks Reason:depression an d anxiety VITAL SIGNS MEDICATIONS Unknown Medications RESULTS No Results PROCEDURES Procedure Date Ordered Result Body Site [facility] VISIT MENTAL HEALTH ESTAB PT April 26, 2018 Psychotherapy, patient &/family, 45 minutes, established pat ient April 26, 2018 INSTRUCTIONS MEDICATIONS ADMINISTERED No Known [...] brain bleed Hospitalization History February 2018 asthma [facility] Hospitalization History allergic reactions
--- OUTSIDE RECORDS SUMMARY | 2019-12-11 10:42 | XMS REPORT ---
Author Author Renetta LEON Organization [facility] Address [address] [place] [address] Care Team Providers Care President Financial Institution Name Role Phone SCOTT LEON Unavailable PROBLEMS Type Condition ICD9-CM Code HNT14-US Code Onset Dates Condition S tatus SNOMED Code Problem Severe episode of recurrent major depressive disorder, without 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 Active 45186702 Problem Major depressive disorder, recurrent episode, unspecified F33.9 Active 552646361 Problem Generalized anxiety disorder F41.1 A ctive 69190316 Problem Major depressive disorder, recurrent episode, moderate F33.1 Active [id number] ALLERGIES No Information ENCOUNTERS Encounter Location Date Diagnosis [facility] [address] [facility] [id number] [address] [place] [phone] Aug, [facility] [address] [id number] [address] [place] [phone] Jul, [facility] [address] [id number] [address] [place] [phone] Jun, [facility] [address] [facility] [id number] [address] [place] [phone] Jun, [facility] [address] [facility] [id number] [address] [place] [phone] Jun, Severe episode of recurrent major depressive disorder, without 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 and Generalized anxiety disorder F41.1 [facility] [address] [id number] [address] [place] [phone] May, Major depressive disorder, r ecurrent episode, unspecified F33.9 and Generalized anxiety disorder F41.1 [facility] [address] [facility] [id number] [address] [place] [phone] May, Major depressive disorder, r ecurrent episode, unspecified F33.9 and Generalized anxiety disorder F41.1 [place] [address] [id number] [address] [place] [phone] Apr, Major depressive disorder, r ecurrent episode, unspecified F33.9 and Generalized anxiety disorder F41.1 [place] [address] [id number] [address] [place] [phone] Apr, Major depressive disorder, r ecurrent episode, unspecified F33.9 and Generalized anxiety disorder F41.1 [place] [address] [id number] [address] [place] [phone] March, Major depressive disorder, r ecurrent episode, unspecified F33.9 and Generalized anxiety disorder F41.1 [place] [address] [address] [facility] [id number] [address] [place] [phone] March, Major depressive disorder, r ecurrent episode, unspecified F33.9 and Generalized anxiety disorder F41.1 [place] [address] [address] [facility] [id number] [address] [place] [phone] March, Major depressive disorder, r ecurrent episode, unspecified F33.9 and Generalized anxiety disorder F41.1 [place] [address] [address] [facility] [id number] [address] [place] [phone] Feb, Major depressive disorder, r ecurrent episode, unspecified F33.9 and Generalized anxiety disorder F41.1 [place] [address] [address] [facility] [id number] [address] [place] [phone] Feb, Major depressive disorder, r ecurrent episode, unspecified F33.9 and Generalized anxiety disorder F41.1 [place] [address] [address] [facility] [id number] [address] [place] [phone] Feb, Major depressive disorder, r ecurrent episode, unspecified F33.9 and Generalized anxiety disorder F41.1 [place] [address] [address] [facility] [id number] [address] [place] [phone] Jan, Major depressive disorder, r ecurrent episode, unspecified F33.9 and Generalized anxiety disorder F41.1 [facility] [address] [id number] [address] [place] [phone] Jan, Major depressive disorder, r ecurrent episode, unspecified F33.9 and Generalized anxiety disorder F41.1 [place] [address] [id number] [address] [place] [phone] Dec, Major depressive disorder, r ecurrent episode, unspecified F33.9 and Generalized anxiety disorder F41.1 [place] [address] [id number] [address] [place] [phone] Dec, Major depressive disorder, r ecurrent episode, unspecified F33.9 and Generalized anxiety disorder F41.1 [place] [address] [address] [facility] [id number] [address] [place] [phone] Nov, Major depressive disorder, r ecurrent episode, unspecified F33.9 and Generalized anxiety disorder F41.1 [place] [address] [address] [facility] [id number] [address] [place] [phone] Jun, Generalized anxiety disorder F41.1 and Major depressive disorder, recurrent episode, moderate F33.1 [place] [address] [address] [facility] [id number] [address] [place] [phone] Jun, Generalized anxiety disorder F41.1 and Major depressive disorder, recurrent episode, moderate F33.1 [place] [address] [address] [facility] [id number] [address] [place] [phone] May, Generalized anxiety disorder F41.1 and Major depressive disorder, recurrent episode, moderate F33.1 [place] [address] [id number] [address] [place] [phone] Apr, Generalized anxiety disorder F41.1 and Major depressive disorder, recurrent episode, moderate F33.1 [place] [address] [address] [facility] [id number] [address] [place] [phone] Apr, Generalized anxiety disorder F41.1 and Major depressive disorder, recurrent episode, moderate F33.1 [place] [address] [address] [facility] [id number] [address] [place] [phone] Apr, Generalized anxiety disorder F41.1 and Major depressive disorder, recurrent episode, moderate F33.1 [facility] [address] [facility] [id number] [address] [place] [phone] March, Generalized anxiety disorder F41.1 and Major depressive disorder, recurrent episode, moderate F33.1 [facility] [address] [facility] [id number] [address] [place] [phone] March, Generalized anxiety disorder F41.1 and Major depressive disorder, recurrent episode, moderate F33.1 [facility] [address] [facility] [id number] [address] [place] [phone] Feb, Generalized anxiety disorder F41.1 and Major depressive disorder, recurrent episode, moderate F33.1 [facility] [address] [facility] [id number] [address] [place] [phone] Jan, Generalized anxiety disorder F41.1 and Major depressive disorder, recurrent episode, moderate F33.1 IMMUNIZATIONS No Known Immunizations SOCIAL HISTORY Never Assessed REASON FOR VISIT f/u, Depression and anxiety. PLAN OF CARE Activity Details Follow Up Next available Reason:depres subhash and anxiety VITAL SIGNS MEDICATIONS Unknown Medications RESULTS No Results PROCEDURES Procedure Date Ordered Result Body Site [facility] VISIT MENTAL HEALTH ESTAB PT April 13, 2018 Psychotherapy, patient &/family, 45 minutes, established patient April 13, 2018 INSTRUCTIONS MEDICATIONS ADMINISTERED No Known Medications
--- OUTSIDE RECORDS SUMMARY | 2019-12-11 10:42 | XMS REPORT ---
Author Author Renetta LEON Organization [facility] Address [address] [place] [address] Care Team Providers Care Stage Set Designer Name Role Phone SCOTT LEON Unavailable PROBLEMS Type Condition ICD9-CM Code [id number] Code Onset Dates Condition S tatus SNOMED Code Problem Generalized anxiety disorder F41.1 A ctive [id number] Problem Major depressive disorder, recurrent episode, moderate F33.1 Active [id number] ALLERGIES No Information ENCOUNTERS Encounter Location Date Diagnosis [place] [address] [address] [facility] [id number] [address] [place] [phone] Oct, [place] [address] [address] [facility] [id number] [address] [place] [phone] Sep, [place] [address] [id number] [address] [place] [phone] Aug, [place] [address] [address] [facility] [id number] [address] [place] [phone] Aug, [place] [address] [address] [facility] [id number] [address] [place] [address] Aug, Generalized anxiety disorder F41.1 ; Major depressive disorder, recurrent episode, moderate F33.1 and BMI 45.0-49.9, adult Z68.42 [facility] [address] [id number] [address] [place] [address] Aug, Major depressive disorder, r ecurrent episode, moderate F33.1 and Generalized anxiety disorder F41.1 [place] [address] [address] [facility] [id number] [address] [place] [phone] Jul, Major depressive disorder, r ecurrent episode, moderate F33.1 and Generalized anxiety disorder F41.1 [place] [address] [id number] [address] [place] [phone] Jun, Severe episode of recurrent major depressive disorder, without 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 and Generalized anxiety disorder F41.1 [place] [address] [address] [facility] [id number] [address] [place] [phone] Jun, Generalized anxiety disorder F41.1 and Recurrent major depressive disorder, in partial remission F33.41 [place] [address] [address] [facility] [id number] [address] [place] [phone] Jun, Severe episode of recurrent major depressive disorder, without 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 and Generalized anxiety disorder F41.1 [place] [address] [id number] [address] [place] [address] May, Major depressive disorder, r ecurrent episode, unspecified F33.9 and Generalized anxiety disorder F41.1 [place] [address] [address] [facility] [id number] [address] [place] [phone] May, Major depressive disorder, r ecurrent episode, unspecified F33.9 and Generalized anxiety disorder F41.1 [place] [address] [id number] [address] [place] [phone] Apr, Major depressive disorder, r ecurrent episode, unspecified F33.9 and Generalized anxiety disorder F41.1 [place] [address] [address] [facility] [id number] [address] [place] [phone] Apr, Major depressive disorder, r ecurrent episode, unspecified F33.9 and Generalized anxiety disorder F41.1 [place] [address] [id number] [address] [place] [phone] March, Major depressive disorder, r ecurrent episode, unspecified F33.9 and Generalized anxiety disorder F41.1 [place] [address] [facility] [id number] [address] [place] [phone] March, Major depressive disorder, r ecurrent episode, unspecified F33.9 and Generalized anxiety disorder F41.1 [place] [address] [address] [facility] [id number] [address] [place] [phone] March, Major depressive disorder, r ecurrent episode, unspecified F33.9 and Generalized anxiety disorder F41.1 [place] [address] [id number] [address] [place] [phone] Feb, Major depressive disorder, r ecurrent episode, unspecified F33.9 and Generalized anxiety disorder F41.1 [place] [address] [id number] [address] [place] [phone] Feb, Major depressive disorder, r ecurrent episode, unspecified F33.9 and Generalized anxiety disorder F41.1 [place] [address] [id number] [address] [place] [phone] Feb, Major depressive disorder, r ecurrent episode, unspecified F33.9 and Generalized anxiety disorder F41.1 [place] [address] [facility] [id number] [address] [place] [phone] Jan, Major depressive disorder, r ecurrent episode, unspecified F33.9 and Generalized anxiety disorder F41.1 [place] [address] [id number] [address] [place] [phone] Jan, Major depressive disorder, r ecurrent episode, unspecified F33.9 and Generalized anxiety disorder F41.1 [place] [address] [id number] [address] [place] [phone] Dec, Major depressive disorder, r ecurrent episode, unspecified F33.9 and Generalized anxiety disorder F41.1 [place] [address] [id number] [address] [place] [phone] Dec, Major depressive disorder, r ecurrent episode, unspecified F33.9 and Generalized anxiety disorder F41.1 [place] [address] [address] [facility] [id number] [address] [place] [phone] Nov, Major depressive disorder, r ecurrent episode, unspecified F33.9 and Generalized anxiety disorder F41.1 [place] [address] [facility] [id number] [address] [place] [phone] Jun, Generalized anxiety disorder F41.1 and Major depressive disorder, recurrent episode, moderate F33.1 [facility] [address] [id number] [address] [place] [phone] Jun, Generalized anxiety disorder F41.1 and Major depressive disorder, recurrent episode, moderate F33.1 [facility] [address] [id number] [address] [place] [phone] May, Generalized anxiety disorder F41.1 and Major depressive disorder, recurrent episode, moderate F33.1 [facility] [address] [id number] [address] [place] [phone] Apr, Generalized anxiety disorder F41.1 and Major depressive disorder, recurrent episode, moderate F33.1 [facility] [address] [id number] [address] [place] [phone] Apr, Generalized anxiety disorder F41.1 and Major depressive disorder, recurrent episode, moderate F33.1 [facility] [address] [id number] [address] [place] [phone] Apr, Generalized anxiety disorder F41.1 and Major depressive disorder, recurrent episode, moderate F33.1 [facility] [address] [id number] [address] [place] [phone] March, Generalized anxiety disorder F41.1 and Major depressive disorder, recurrent episode, moderate F33.1 [facility] [address] [id number] [address] [place] [phone] March, Generalized anxiety disorder F41.1 and Major depressive disorder, recurrent episode, moderate F33.1 [facility] [address] [id number] [address] [place] [phone] Feb, Generalized anxiety disorder F41.1 and Major depressive disorder, recurrent episode, moderate F33.1 [facility] [address] [id number] [address] [place] [phone] Jan, Generalized anxiety disorder F41.1 and Major depressive disorder, recurrent episode, moderate F33.1 IMMUNIZATIONS No Known Immunizations SOCIAL HISTORY Never Assessed REASON FOR VISIT f/u PLAN OF CARE Activity Details Follow Up 2 Weeks Reason:depression an d anxiety VITAL SIGNS MEDICATIONS Unknown Medications RESULTS No Results PROCEDURES Procedure Date Ordered Result Body Site [facility] VISIT MENTAL HEALTH ESTAB PT Aug 15, 2018 Psychotherapy, patient &/family, 45 minutes, established patient Aug 15, 2018 visit needs to be added to the same day medical Aug 15, 2018 INSTRUCTIONS MEDICATIONS ADMINISTERED No Known Medications [...] brain bleed Hospitalization History February 2018 asthma [facility] Hospitalization History allergic reactions
--- OUTSIDE RECORDS SUMMARY | 2019-12-11 10:42 | XMS REPORT ---
Author Author Renetta LEON Organization [facility] Address [address] [place] [address] Care Team Providers Care Communications Technologist Name Role Phone SCOTT LEON Unavailable PROBLEMS Type Condition ICD9-CM Code ELL28-LO Code Onset Dates Condition S tatus SNOMED Code Problem Recurrent major depressive disorder, in partial remission F33.41 Active 22885618 Problem Severe episode of recurrent major depressive disorder, without 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 Active 50135403 Problem Major depressive disorder, recurrent episode, moderate F33.1 Active 220675754 Problem Major depressive disorder, recurrent episode, unspecified F33.9 Active 980212823 Problem Generalized anxiety disorder F41.1 A ctive [id number] ALLERGIES No Information ENCOUNTERS Encounter Location Date Diagnosis [place] [address] [address] [facility] [id number] [address] [place] [phone] Aug, [place] [address] [address] [facility] [id number] [address] [place] [phone] Aug, [place] [address] [address] [facility] [id number] [address] [place] [phone] Aug, [place] [address] [address] [facility] [id number] [address] [place] [address] Jul, [facility] [address] [place] [id number] [address] [place] [address] Jun, Severe episode of recurrent major depressive disorder, without 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 and Generalized anxiety disorder F41.1 [facility] [address] [facility] [id number] [address] [place] [address] Jun, Generalized anxiety disorder F41.1 and Recurrent major depressive disorder, in partial remission F33.41 [facility] [address] [facility] [id number] [address] [place] [phone] Jun, Severe episode of recurrent major depressive disorder, without 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 and Generalized anxiety disorder F41.1 [place] [address] [address] [facility] [id number] [address] [place] [phone] May, Major depressive disorder, r ecurrent episode, unspecified F33.9 and Generalized anxiety disorder F41.1 [place] [address] [address] [facility] [id number] [address] [place] [phone] May, Major depressive disorder, r ecurrent episode, unspecified F33.9 and Generalized anxiety disorder F41.1 [place] [address] [id number] [address] [place] [phone] Apr, Major depressive disorder, r ecurrent episode, unspecified F33.9 and Generalized anxiety disorder F41.1 [place] [address] [address] [facility] [id number] [address] [place] [address] Apr, Major depressive disorder, r ecurrent episode, unspecified F33.9 and Generalized anxiety disorder F41.1 [place] [address] [id number] [address] [place] [address] March, Major depressive disorder, r ecurrent episode, unspecified F33.9 and Generalized anxiety disorder F41.1 [place] [address] [address] [facility] [id number] [address] [place] [phone] March, Major depressive disorder, r ecurrent episode, unspecified F33.9 and Generalized anxiety disorder F41.1 [place] [address] [address] [facility] [id number] [address] [place] [phone] March, Major depressive disorder, r ecurrent episode, unspecified F33.9 and Generalized anxiety disorder F41.1 [place] [address] [address] [facility] [id number] [address] [place] [address] Feb, Major depressive disorder, r ecurrent episode, unspecified F33.9 and Generalized anxiety disorder F41.1 [place] [address] [facility] [id number] [address] [place] [phone] Feb, Major depressive disorder, r ecurrent episode, unspecified F33.9 and Generalized anxiety disorder F41.1 [place] [address] [id number] [address] [place] [address] Feb, Major depressive disorder, r ecurrent episode, unspecified F33.9 and Generalized anxiety disorder F41.1 [place] [address] [id number] [address] [place] [phone] Jan, Major depressive disorder, r ecurrent episode, unspecified F33.9 and Generalized anxiety disorder F41.1 [place] [address] [id number] [address] [place] [phone] Jan, Major depressive disorder, r ecurrent episode, unspecified F33.9 and Generalized anxiety disorder F41.1 [place] [address] [id number] [address] [place] [phone] Dec, Major depressive disorder, r ecurrent episode, unspecified F33.9 and Generalized anxiety disorder F41.1 [place] [address] [id number] [address] [place] [address] Dec, Major depressive disorder, r ecurrent episode, unspecified F33.9 and Generalized anxiety disorder F41.1 [place] [address] [id number] [address] [place] [phone] Nov, Major depressive disorder, r ecurrent episode, unspecified F33.9 and Generalized anxiety disorder F41.1 [place] [address] [id number] [address] [place] [address] Jun, Generalized anxiety disorder F41.1 and Major depressive disorder, recurrent episode, moderate F33.1 [place] [address] [id number] [address] [place] [phone] Jun, Generalized anxiety disorder F41.1 and Major depressive disorder, recurrent episode, moderate F33.1 [place] [address] [id number] [address] [place] [phone] May, Generalized anxiety disorder F41.1 and Major depressive disorder, recurrent episode, moderate F33.1 [facility] [address] [facility] [id number] [address] [place] [address] Apr, Generalized anxiety disorder F41.1 and Major depressive disorder, recurrent episode, moderate F33.1 [facility] [address] [facility] [id number] [address] [place] [phone] Apr, Generalized anxiety disorder F41.1 and Major depressive disorder, recurrent episode, moderate F33.1 [facility] [address] [facility] [id number] [address] [place] [address] Apr, Generalized anxiety disorder F41.1 and Major depressive disorder, recurrent episode, moderate F33.1 [place] [address] [address] [facility] [id number] [address] [place] [address] March, Generalized anxiety disorder F41.1 and Major depressive disorder, recurrent episode, moderate F33.1 [place] [address] [address] [facility] [id number] [address] [place] [phone] March, Generalized anxiety disorder F41.1 and Major depressive disorder, recurrent episode, moderate F33.1 [place] [address] [address] [facility] [id number] [address] [place] [phone] Feb, Generalized anxiety disorder F41.1 and Major depressive disorder, recurrent episode, moderate F33.1 [facility] [address] [place] [id number] [address] [place] [address] Jan, Generalized anxiety disorder F41.1 and Major depressive disorder, recurrent episode, moderate F33.1 IMMUNIZATIONS No Known Immunizations SOCIAL HISTORY Never Assessed REASON FOR VISIT f/u PLAN OF CARE Activity Details Follow Up Next available Reason:depres subhash & anxiety VITAL SIGNS MEDICATIONS Unknown Medications RESULTS No Results PROCEDURES Procedure Date Ordered Result Body Site [facility] VISIT MENTAL HEALTH ESTAB PT Jun 23, 2018 Psychotherapy, patient &/family, 45 minutes, established patient Jun 23, 2018 INSTRUCTIONS MEDICATIONS ADMINISTERED No Known Medications [...] brain bleed Hospitalization History February 2018 [place] [facility] History allergic reactions
--- OUTSIDE RECORDS SUMMARY | 2019-12-11 10:42 | XMS REPORT ---
Author Author Renetta LEON Organization [facility] Address [address] [place] [address] Care Team Providers Care Casting House Laborer Name Role Phone SCOTT LEON Unavailable PROBLEMS Type Condition ICD9-CM Code EOR61-PU Code Onset Dates Condition S tatus SNOMED Code Problem Recurrent major depressive disorder, in partial remission F33.41 Active 55308091 Problem Severe episode of recurrent major depressive disorder, without 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 Active 82346527 Problem Major depressive disorder, recurrent episode, moderate F33.1 Active 868723434 Problem Major depressive disorder, recurrent episode, unspecified F33.9 Active 451282573 Problem Generalized anxiety disorder F41.1 A ctive [id number] ALLERGIES No Information ENCOUNTERS Encounter Location Date Diagnosis [place] [address] [address] [facility] [id number] [address] [place] [phone] Aug, [place] [address] [address] [facility] [id number] [address] [place] [address] Aug, [place] [address] [address] [facility] [id number] [address] [place] [phone] Aug, [place] [address] [address] [facility] [id number] [address] [place] [address] Jul, [facility] [address] [place] [id number] [address] [place] [address] Jun, Severe episode of recurrent major depressive disorder, without 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 and Generalized anxiety disorder F41.1 [facility] [address] [facility] [id number] [address] [place] [address] Jun, Generalized anxiety disorder F41.1 and Recurrent major depressive disorder, in partial remission F33.41 [facility] [address] [facility] [id number] [address] [place] [phone] Jun, Severe episode of recurrent major depressive disorder, without 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 and Generalized anxiety disorder F41.1 [place] [address] [address] [facility] [id number] [address] [place] [address] May, Major depressive disorder, r ecurrent episode, unspecified F33.9 and Generalized anxiety disorder F41.1 [place] [address] [address] [facility] [id number] [address] [place] [address] May, Major depressive disorder, r ecurrent episode, unspecified F33.9 and Generalized anxiety disorder F41.1 [place] [address] [id number] [address] [place] [address] Apr, Major depressive disorder, r ecurrent episode, unspecified F33.9 and Generalized anxiety disorder F41.1 [place] [address] [address] [facility] [id number] [address] [place] [address] Apr, Major depressive disorder, r ecurrent episode, unspecified F33.9 and Generalized anxiety disorder F41.1 [place] [address] [id number] [address] [place] [address] March, Major depressive disorder, r ecurrent episode, unspecified F33.9 and Generalized anxiety disorder F41.1 [place] [address] [facility] [id number] [address] [place] [address] March, Major depressive disorder, r ecurrent episode, unspecified F33.9 and Generalized anxiety disorder F41.1 [place] [address] [address] [facility] [id number] [address] [place] [address] March, Major depressive disorder, r ecurrent episode, unspecified F33.9 and Generalized anxiety disorder F41.1 [place] [address] [address] [facility] [id number] [address] [place] [address] Feb, Major depressive disorder, r ecurrent episode, unspecified F33.9 and Generalized anxiety disorder F41.1 [place] [address] [address] [facility] [id number] [address] [place] [phone] Feb, Major depressive disorder, r ecurrent episode, unspecified F33.9 and Generalized anxiety disorder F41.1 [place] [address] [id number] [address] [place] [address] Feb, Major depressive disorder, r ecurrent episode, unspecified F33.9 and Generalized anxiety disorder F41.1 [place] [address] [id number] [address] [place] [phone] Jan, Major depressive disorder, r ecurrent episode, unspecified F33.9 and Generalized anxiety disorder F41.1 [place] [address] [id number] [address] [place] [address] Jan, Major depressive disorder, r ecurrent episode, unspecified F33.9 and Generalized anxiety disorder F41.1 [place] [address] [id number] [address] [place] [address] Dec, Major depressive disorder, r ecurrent episode, unspecified F33.9 and Generalized anxiety disorder F41.1 [place] [address] [id number] [address] [place] [address] Dec, Major depressive disorder, r ecurrent episode, unspecified F33.9 and Generalized anxiety disorder F41.1 [place] [address] [id number] [address] [place] [phone] Nov, Major depressive disorder, r ecurrent episode, unspecified F33.9 and Generalized anxiety disorder F41.1 [place] [address] [id number] [address] [place] [phone] Jun, Generalized anxiety disorder F41.1 and Major depressive disorder, recurrent episode, moderate F33.1 [place] [address] [id number] [address] [place] [address] Jun, Generalized anxiety disorder F41.1 and Major depressive disorder, recurrent episode, moderate F33.1 [place] [address] [id number] [address] [place] [address] May, Generalized anxiety disorder F41.1 and Major depressive disorder, recurrent episode, moderate F33.1 [facility] [address] [facility] [id number] [address] [place] [address] Apr, Generalized anxiety disorder F41.1 and Major depressive disorder, recurrent episode, moderate F33.1 [facility] [address] [facility] [id number] [address] [place] [address] Apr, Generalized anxiety disorder F41.1 and Major depressive disorder, recurrent episode, moderate F33.1 [facility] [address] [facility] [id number] [address] [place] [address] Apr, Generalized anxiety disorder F41.1 and Major depressive disorder, recurrent episode, moderate F33.1 [place] [address] [address] [facility] [id number] [address] [place] [address] March, Generalized anxiety disorder F41.1 and Major depressive disorder, recurrent episode, moderate F33.1 [place] [address] [place] [id number] [address] [place] [address] March, Generalized anxiety disorder F41.1 and Major depressive disorder, recurrent episode, moderate F33.1 [place] [address] [place] [id number] [address] [place] [address] Feb, Generalized anxiety disorder F41.1 and Major depressive disorder, recurrent episode, moderate F33.1 [facility] [address] [place] [id number] [address] [place] [address] Jan, Generalized anxiety disorder F41.1 and Major depressive disorder, recurrent episode, moderate F33.1 IMMUNIZATIONS No Known Immunizations SOCIAL HISTORY Never Assessed REASON FOR VISIT BH f/u PLAN OF CARE Activity Details Follow Up 2 Weeks Reason:anxity & depr ession VITAL SIGNS MEDICATIONS Unknown Medications RESULTS No Results PROCEDURES Procedure Date Ordered Result Body Site [facility] VISIT MENTAL HEALTH ESTAB PT June 09, 2018 Psychotherapy, patient &/family, 45 minutes, established pat ient June 09, 2018 INSTRUCTIONS MEDICATIONS ADMINISTERED No Known Medications [...] brain bleed Hospitalization History February 2018 asthma [facility] Hospitalization History allergic reactions
--- OUTSIDE RECORDS SUMMARY | 2019-12-11 10:42 | XMS REPORT ---
Author Author Renetta LEON Organization [facility] Address [address] [place] [address] Care Team Providers Care Route Sales Associate Name Role Phone SCOTT LEON Unavailable PROBLEMS Type Condition ICD9-CM Code GMR71-UM Code Onset Dates Condition S tatus SNOMED Code Problem Major depressive disorder, recurrent episode, unspecified F33.9 Active [id number] Problem Generalized anxiety disorder F41.1 A ctive 58759870 Problem Major depressive disorder, recurrent episode, moderate F33.1 Active 658562724 ALLERGIES No Information ENCOUNTERS Encounter Location Date Diagnosis [place] [id number] [facility] [id number] [address] [place] [address] Jun, [place] [address] [id number] [address] [place] [address] Jun, [place] [address] [id number] [address] [place] [address] May, Major depressive disorder, r ecurrent episode, unspecified F33.9 and Generalized anxiety disorder F41.1 [place] [address] [address] [facility] [id number] [address] [place] [address] May, Major depressive disorder, r ecurrent episode, unspecified F33.9 and Generalized anxiety disorder F41.1 [facility] [address] [id number] [address] [place] [address] Apr, Major depressive disorder, r ecurrent episode, unspecified F33.9 and Generalized anxiety disorder F41.1 [place] [address] [id number] [address] [place] [address] Apr, Major depressive disorder, r ecurrent episode, unspecified F33.9 and Generalized anxiety disorder F41.1 [place] [address] [id number] [address] [place] [address] March, Major depressive disorder, r ecurrent episode, unspecified F33.9 and Generalized anxiety disorder F41.1 [place] [address] [address] [facility] [id number] [address] [place] [address] March, Major depressive disorder, r ecurrent episode, unspecified F33.9 and Generalized anxiety disorder F41.1 [place] [address] [address] [facility] [id number] [address] [place] [address] March, Major depressive disorder, r ecurrent episode, unspecified F33.9 and Generalized anxiety disorder F41.1 [place] [address] [address] [facility] [id number] [address] [place] [address] Feb, Major depressive disorder, r ecurrent episode, unspecified F33.9 and Generalized anxiety disorder F41.1 [place] [address] [address] [facility] [id number] [address] [place] [address] Feb, Major depressive disorder, r ecurrent episode, unspecified F33.9 and Generalized anxiety disorder F41.1 [place] [address] [address] [facility] [id number] [address] [place] [address] Feb, Major depressive disorder, r ecurrent episode, unspecified F33.9 and Generalized anxiety disorder F41.1 [place] [address] [address] [facility] [id number] [address] [place] [address] Jan, Major depressive disorder, r ecurrent episode, unspecified F33.9 and Generalized anxiety disorder F41.1 [place] [address] [address] [facility] [id number] [address] [place] [address] Jan, Major depressive disorder, r ecurrent episode, unspecified F33.9 and Generalized anxiety disorder F41.1 [place] [address] [address] [facility] [id number] [address] [place] [address] Dec, Major depressive disorder, r ecurrent episode, unspecified F33.9 and Generalized anxiety disorder F41.1 [place] [address] [address] [facility] [id number] [address] [place] [address] Dec, Major depressive disorder, r ecurrent episode, unspecified F33.9 and Generalized anxiety disorder F41.1 [facility] [address] [id number] [address] [place] [address] Nov, Major depressive disorder, r ecurrent episode, unspecified F33.9 and Generalized anxiety disorder F41.1 [facility] [address] [id number] [address] [place] [address] Jun, Generalized anxiety disorder F41.1 and Major depressive disorder, recurrent episode, moderate F33.1 [facility] [address] [id number] [address] [place] [address] Jun, Generalized anxiety disorder F41.1 and Major depressive disorder, recurrent episode, moderate F33.1 [place] [address] [id number] [address] [place] [address] May, Generalized anxiety disorder F41.1 and Major depressive disorder, recurrent episode, moderate F33.1 [facility] [address] [id number] [address] [place] [address] Apr, Generalized anxiety disorder F41.1 and Major depressive disorder, recurrent episode, moderate F33.1 [facility] [address] [id number] [address] [place] [address] Apr, Generalized anxiety disorder F41.1 and Major depressive disorder, recurrent episode, moderate F33.1 [facility] [address] [id number] [address] [place] [address] Apr, Generalized anxiety disorder F41.1 and Major depressive disorder, recurrent episode, moderate F33.1 [facility] [address] [id number] [address] [place] [address] March, Generalized anxiety disorder F41.1 and Major depressive disorder, recurrent episode, moderate F33.1 [facility] [address] [id number] [address] [place] [address] March, Generalized anxiety disorder F41.1 and Major depressive disorder, recurrent episode, moderate F33.1 [facility] [address] [facility] [id number] [address] [place] [address] Feb, Generalized anxiety disorder F41.1 and Major depressive disorder, recurrent episode, moderate F33.1 [facility] [address] [facility] [id number] [address] [place] [address] Jan, Generalized anxiety disorder F41.1 and Major depressive disorder, recurrent episode, moderate F33.1 IMMUNIZATIONS No Known Immunizations SOCIAL HISTORY Never Assessed REASON FOR VISIT f/u, Depression and anxiety. PLAN OF CARE Activity Details Follow Up 1 Week Reason:depression and anxiety VITAL SIGNS MEDICATIONS Unknown Medications RESULTS No Results PROCEDURES Procedure Date Ordered Result Body Site [facility] VISIT MENTAL HEALTH ESTAB PT March 08, 2018 Psychotherapy, patient &/family, 45 minutes, established pat iebritney March 08, 2018 INSTRUCTIONS MEDICATIONS ADMINISTERED No Known Medications
--- OUTSIDE RECORDS SUMMARY | 2019-12-11 10:42 | XMS REPORT ---
Author Author Renetta LEON Organization [facility] Address [address] [place] [address] Care Team Providers Care Health And Safety Representative Name Role Phone SCOTT LEON Unavailable PROBLEMS Type Condition ICD9-CM Code [id number] Code Onset Dates Condition S tatus SNOMED Code Problem Generalized anxiety disorder F41.1 A ctive 92584908 Problem Major depressive disorder, recurrent episode, moderate F33.1 Active [id number] ALLERGIES No Information ENCOUNTERS Encounter Location Date Diagnosis [place] [address] [address] [facility] [id number] [address] [place] [phone] Aug, [place] [address] [address] [facility] [id number] [address] [place] [phone] Aug, [place] [address] [id number] [address] [place] [phone] Aug, [facility] [address] [facility] [id number] [address] [place] [phone] Aug, [place] [address] [address] [facility] [id number] [address] [place] [phone] Jul, Major depressive disorder, r ecurrent episode, moderate F33.1 and Generalized anxiety disorder F41.1 [facility] [address] [id number] [address] [place] [phone] Jun, Severe episode of recurrent major depressive disorder, without 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 and Generalized anxiety disorder F41.1 [place] [address] [address] [facility] [id number] [address] [place] [address] Jun, Generalized anxiety disorder F41.1 and Recurrent major depressive disorder, in partial remission F33.41 [place] [address] [address] [facility] [id number] [address] [place] [address] Jun, Severe episode of recurrent major depressive disorder, without 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 and Generalized anxiety disorder F41.1 [place] [address] [id number] [address] [place] [address] May, Major depressive disorder, r ecurrent episode, unspecified F33.9 and Generalized anxiety disorder F41.1 [place] [address] [id number] [address] [place] [phone] May, Major depressive disorder, r ecurrent episode, unspecified F33.9 and Generalized anxiety disorder F41.1 [place] [address] [id number] [address] [place] [phone] Apr, Major depressive disorder, r ecurrent episode, unspecified F33.9 and Generalized anxiety disorder F41.1 [place] [address] [address] [facility] [id number] [address] [place] [phone] Apr, Major depressive disorder, r ecurrent episode, unspecified F33.9 and Generalized anxiety disorder F41.1 [place] [address] [id number] [address] [place] [address] March, Major depressive disorder, r ecurrent episode, unspecified F33.9 and Generalized anxiety disorder F41.1 [place] [address] [id number] [address] [place] [phone] March, Major depressive disorder, r ecurrent episode, unspecified F33.9 and Generalized anxiety disorder F41.1 [place] [address] [address] [facility] [id number] [address] [place] [phone] March, Major depressive disorder, r ecurrent episode, unspecified F33.9 and Generalized anxiety disorder F41.1 [place] [address] [address] [facility] [id number] [address] [place] [phone] Feb, Major depressive disorder, r ecurrent episode, unspecified F33.9 and Generalized anxiety disorder F41.1 [place] [address] [address] [facility] [id number] [address] [place] [phone] Feb, Major depressive disorder, r ecurrent episode, unspecified F33.9 and Generalized anxiety disorder F41.1 [place] [address] [id number] [address] [place] [phone] Feb, Major depressive disorder, r ecurrent episode, unspecified F33.9 and Generalized anxiety disorder F41.1 [place] [address] [id number] [address] [place] [phone] Jan, Major depressive disorder, r ecurrent episode, unspecified F33.9 and Generalized anxiety disorder F41.1 [place] [address] [id number] [address] [place] [phone] Jan, Major depressive disorder, r ecurrent episode, unspecified F33.9 and Generalized anxiety disorder F41.1 [place] [address] [id number] [address] [place] [phone] Dec, Major depressive disorder, r ecurrent episode, unspecified F33.9 and Generalized anxiety disorder F41.1 [place] [address] [id number] [address] [place] [phone] Dec, Major depressive disorder, r ecurrent episode, unspecified F33.9 and Generalized anxiety disorder F41.1 [place] [address] [id number] [address] [place] [phone] Nov, Major depressive disorder, r ecurrent episode, unspecified F33.9 and Generalized anxiety disorder F41.1 [place] [address] [id number] [address] [place] [phone] Jun, Generalized anxiety disorder F41.1 and Major depressive disorder, recurrent episode, moderate F33.1 [place] [address] [id number] [address] [place] [phone] Jun, Generalized anxiety disorder F41.1 and Major depressive disorder, recurrent episode, moderate F33.1 [place] [address] [id number] [address] [place] [phone] May, Generalized anxiety disorder F41.1 and Major depressive disorder, recurrent episode, moderate F33.1 [facility] [address] [facility] [id number] [address] [place] [phone] Apr, Generalized anxiety disorder F41.1 and Major depressive disorder, recurrent episode, moderate F33.1 [facility] [address] [id number] [address] [place] [phone] Apr, Generalized anxiety disorder F41.1 and Major depressive disorder, recurrent episode, moderate F33.1 [facility] [address] [facility] [id number] [address] [place] [phone] Apr, Generalized anxiety disorder F41.1 and Major depressive disorder, recurrent episode, moderate F33.1 [facility] [address] [facility] [id number] [address] [place] [address] March, Generalized anxiety disorder F41.1 and Major depressive disorder, recurrent episode, moderate F33.1 [facility] [address] [facility] [id number] [address] [place] [phone] March, Generalized anxiety disorder F41.1 and Major depressive disorder, recurrent episode, moderate F33.1 [place] [address] [facility] [id number] [address] [place] [phone] Feb, Generalized anxiety disorder F41.1 and Major depressive disorder, recurrent episode, moderate F33.1 [facility] [address] [facility] [id number] [address] [place] [address] Jan, Generalized anxiety disorder F41.1 and Major depressive disorder, recurrent episode, moderate F33.1 IMMUNIZATIONS No Known Immunizations SOCIAL HISTORY Never Assessed REASON FOR VISIT f/u PLAN OF CARE Activity Details Follow Up 2 Weeks Reason:depression & anxiety VITAL SIGNS MEDICATIONS Unknown Medications RESULTS No Results PROCEDURES Procedure Date Ordered Result Body Site [facility] VISIT MENTAL HEALTH ESTAB PT Jul 10, 2018 Psychotherapy, patient &/family, 45 minutes, established patient Jul 10, 2018 INSTRUCTIONS MEDICATIONS ADMINISTERED No Known Medications [...] brain bleed Hospitalization History February 2018 asthma [facility] Hospitalization History allergic reactions
--- OUTSIDE RECORDS SUMMARY | 2019-12-11 10:42 | XMS REPORT ---
Author Author Renetta LEON Organization [facility] Address [address] [place] [address] Care Team Providers Care Knife Cutter Name Role Phone SCOTT LEON Unavailable PROBLEMS Type Condition ICD9-CM Code [id number] Code Onset Dates Condition S tatus SNOMED Code Problem Generalized anxiety disorder F41.1 A ctive [id number] Problem Major depressive disorder, recurrent episode, moderate F33.1 Active [id number] ALLERGIES No Information ENCOUNTERS Encounter Location Date Diagnosis [place] [address] [address] [facility] [id number] [address] [place] [phone] Oct, [place] [address] [address] [facility] [id number] [address] [place] [phone] Sep, [place] [address] [id number] [address] [place] [phone] Aug, [place] [address] [address] [facility] [id number] [address] [place] [phone] Aug, [place] [address] [address] [facility] [id number] [address] [place] [phone] Aug, Generalized anxiety disorder F41.1 ; Major depressive disorder, recurrent episode, moderate F33.1 and BMI 45.0-49.9, adult Z68.42 [place] [address] [id number] [address] [place] [phone] Aug, Major depressive disorder, r ecurrent episode, moderate F33.1 and Generalized anxiety disorder F41.1 [place] [address] [address] [facility] [id number] [address] [place] [phone] Jul, Major depressive disorder, r ecurrent episode, moderate F33.1 and Generalized anxiety disorder F41.1 [place] [address] [id number] [address] [place] [phone] Jun, Severe episode of recurrent major depressive disorder, without 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 and Generalized anxiety disorder F41.1 [place] [address] [address] [facility] [id number] [address] [place] [phone] Jun, Generalized anxiety disorder F41.1 and Recurrent major depressive disorder, in partial remission F33.41 [place] [address] [facility] [id number] [address] [place] [phone] Jun, Severe episode of recurrent major depressive disorder, without 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 and Generalized anxiety disorder F41.1 [place] [address] [id number] [address] [place] [phone] May, Major depressive disorder, r ecurrent episode, unspecified F33.9 and Generalized anxiety disorder F41.1 [place] [address] [facility] [id number] [address] [place] [phone] May, Major depressive disorder, r ecurrent episode, unspecified F33.9 and Generalized anxiety disorder F41.1 [place] [address] [id number] [address] [place] [phone] Apr, Major depressive disorder, r ecurrent episode, unspecified F33.9 and Generalized anxiety disorder F41.1 [place] [address] [facility] [id number] [address] [place] [phone] Apr, Major depressive disorder, r ecurrent episode, unspecified F33.9 and Generalized anxiety disorder F41.1 [place] [address] [id number] [address] [place] [phone] March, Major depressive disorder, r ecurrent episode, unspecified F33.9 and Generalized anxiety disorder F41.1 [place] [address] [facility] [id number] [address] [place] [phone] March, Major depressive disorder, r ecurrent episode, unspecified F33.9 and Generalized anxiety disorder F41.1 [place] [address] [facility] [id number] [address] [place] [phone] March, Major depressive disorder, r ecurrent episode, unspecified F33.9 and Generalized anxiety disorder F41.1 [place] [address] [id number] [address] [place] [phone] Feb, Major depressive disorder, r ecurrent episode, unspecified F33.9 and Generalized anxiety disorder F41.1 [place] [address] [id number] [address] [place] [phone] Feb, Major depressive disorder, r ecurrent episode, unspecified F33.9 and Generalized anxiety disorder F41.1 [place] [address] [id number] [address] [place] [phone] Feb, Major depressive disorder, r ecurrent episode, unspecified F33.9 and Generalized anxiety disorder F41.1 [place] [address] [address] [facility] [id number] [address] [place] [phone] Jan, Major depressive disorder, r ecurrent episode, unspecified F33.9 and Generalized anxiety disorder F41.1 [place] [address] [id number] [address] [place] [phone] Jan, Major depressive disorder, r ecurrent episode, unspecified F33.9 and Generalized anxiety disorder F41.1 [place] [address] [id number] [address] [place] [phone] Dec, Major depressive disorder, r ecurrent episode, unspecified F33.9 and Generalized anxiety disorder F41.1 [place] [address] [id number] [address] [place] [phone] Dec, Major depressive disorder, r ecurrent episode, unspecified F33.9 and Generalized anxiety disorder F41.1 [place] [address] [facility] [id number] [address] [place] [phone] Nov, Major depressive disorder, r ecurrent episode, unspecified F33.9 and Generalized anxiety disorder F41.1 [place] [address] [address] [facility] [id number] [address] [place] [phone] Jun, Generalized anxiety disorder F41.1 and Major depressive disorder, recurrent episode, moderate F33.1 [facility] [address] [id number] [address] [place] [phone] Jun, Generalized anxiety disorder F41.1 and Major depressive disorder, recurrent episode, moderate F33.1 [facility] [address] [id number] [address] [place] [phone] May, Generalized anxiety disorder F41.1 and Major depressive disorder, recurrent episode, moderate F33.1 [facility] [address] [id number] [address] [place] [phone] Apr, Generalized anxiety disorder F41.1 and Major depressive disorder, recurrent episode, moderate F33.1 [facility] [address] [id number] [address] [place] [address] Apr, Generalized anxiety disorder F41.1 and Major depressive disorder, recurrent episode, moderate F33.1 [facility] [address] [id number] [address] [place] [phone] Apr, Generalized anxiety disorder F41.1 and Major depressive disorder, recurrent episode, moderate F33.1 [facility] [address] [id number] [address] [place] [phone] March, Generalized anxiety disorder F41.1 and Major depressive disorder, recurrent episode, moderate F33.1 [facility] [address] [id number] [address] [place] [phone] March, Generalized anxiety disorder F41.1 and Major depressive disorder, recurrent episode, moderate F33.1 [facility] [address] [id number] [address] [place] [phone] Feb, Generalized anxiety disorder F41.1 and Major depressive disorder, recurrent episode, moderate F33.1 [facility] [address] [id number] [address] [place] [phone] Jan, Generalized anxiety disorder F41.1 and Major depressive disorder, recurrent episode, moderate F33.1 IMMUNIZATIONS No Known Immunizations SOCIAL HISTORY Never Assessed REASON FOR VISIT BH f/u PLAN OF CARE Activity Details Follow Up Next available Reason:alistair cullen VITAL SIGNS MEDICATIONS Unknown Medications RESULTS No Results PROCEDURES Procedure Date Ordered Result Body Site [facility] VISIT MENTAL HEALTH ESTAB PT Aug 01, 2018 Psychotherapy, patient &/family, 45 minutes, established pat ient Aug 01, 2018 INSTRUCTIONS MEDICATIONS ADMINISTERED No Known Medications [...] brain bleed Hospitalization History February 2018 asthma [facility] Hospitalization History allergic reactions
--- OUTSIDE RECORDS SUMMARY | 2019-12-11 10:42 | XMS REPORT ---
Author Author Renetta LEON Organization [facility] Address [address] [place] [address] Care Team Providers Care Manager Development Name Role Phone SCOTT LEON Unavailable PROBLEMS Type Condition ICD9-CM Code JUX59-DV Code Onset Dates Condition S tatus SNOMED Code Problem Recurrent major depressive disorder, in partial remission F33.41 Active 88709704 Problem Severe episode of recurrent major depressive disorder, without 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 Active 85302330 Problem Major depressive disorder, recurrent episode, moderate F33.1 Active 175458270 Problem Major depressive disorder, recurrent episode, unspecified F33.9 Active 016002765 Problem Generalized anxiety disorder F41.1 A ctive [id number] ALLERGIES No Information ENCOUNTERS Encounter Location Date Diagnosis [place] [address] [address] [facility] [id number] [address] [place] [phone] Aug, [place] [address] [address] [facility] [id number] [address] [place] [phone] Aug, [place] [address] [address] [facility] [id number] [address] [place] [phone] Aug, [place] [address] [address] [facility] [id number] [address] [place] [address] Jul, [facility] [address] [place] [id number] [address] [place] [phone] Jun, Severe episode of recurrent major depressive disorder, without 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 and Generalized anxiety disorder F41.1 [facility] [address] [facility] [id number] [address] [place] [phone] Jun, Generalized anxiety disorder F41.1 and Recurrent major depressive disorder, in partial remission F33.41 [facility] [address] [facility] [id number] [address] [place] [address] Jun, Severe episode of recurrent major depressive disorder, without 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 and Generalized anxiety disorder F41.1 [place] [address] [address] [facility] [id number] [address] [place] [address] May, Major depressive disorder, r ecurrent episode, unspecified F33.9 and Generalized anxiety disorder F41.1 [place] [address] [address] [facility] [id number] [address] [place] [address] May, Major depressive disorder, r ecurrent episode, unspecified F33.9 and Generalized anxiety disorder F41.1 [place] [address] [id number] [address] [place] [address] Apr, Major depressive disorder, r ecurrent episode, unspecified F33.9 and Generalized anxiety disorder F41.1 [place] [address] [address] [facility] [id number] [address] [place] [address] Apr, Major depressive disorder, r ecurrent episode, unspecified F33.9 and Generalized anxiety disorder F41.1 [place] [address] [id number] [address] [place] [address] March, Major depressive disorder, r ecurrent episode, unspecified F33.9 and Generalized anxiety disorder F41.1 [place] [address] [facility] [id number] [address] [place] [address] March, Major depressive disorder, r ecurrent episode, unspecified F33.9 and Generalized anxiety disorder F41.1 [place] [address] [facility] [id number] [address] [place] [address] March, Major depressive disorder, r ecurrent episode, unspecified F33.9 and Generalized anxiety disorder F41.1 [place] [address] [address] [facility] [id number] [address] [place] [address] Feb, Major depressive disorder, r ecurrent episode, unspecified F33.9 and Generalized anxiety disorder F41.1 [place] [address] [address] [facility] [id number] [address] [place] [address] Feb, Major depressive disorder, r ecurrent episode, unspecified F33.9 and Generalized anxiety disorder F41.1 [place] [address] [id number] [address] [place] [address] Feb, Major depressive disorder, r ecurrent episode, unspecified F33.9 and Generalized anxiety disorder F41.1 [place] [address] [id number] [address] [place] [phone] Jan, Major depressive disorder, r ecurrent episode, unspecified F33.9 and Generalized anxiety disorder F41.1 [place] [address] [id number] [address] [place] [address] Jan, Major depressive disorder, r ecurrent episode, unspecified F33.9 and Generalized anxiety disorder F41.1 [place] [address] [id number] [address] [place] [address] Dec, Major depressive disorder, r ecurrent episode, unspecified F33.9 and Generalized anxiety disorder F41.1 [place] [address] [id number] [address] [place] [address] Dec, Major depressive disorder, r ecurrent episode, unspecified F33.9 and Generalized anxiety disorder F41.1 [place] [address] [id number] [address] [place] [phone] Nov, Major depressive disorder, r ecurrent episode, unspecified F33.9 and Generalized anxiety disorder F41.1 [place] [address] [id number] [address] [place] [address] Jun, Generalized anxiety disorder F41.1 and Major depressive disorder, recurrent episode, moderate F33.1 [place] [address] [id number] [address] [place] [address] Jun, Generalized anxiety disorder F41.1 and Major depressive disorder, recurrent episode, moderate F33.1 [place] [address] [id number] [address] [place] [phone] May, Generalized anxiety disorder F41.1 and Major depressive disorder, recurrent episode, moderate F33.1 [facility] [address] [facility] [id number] [address] [place] [address] Apr, Generalized anxiety disorder F41.1 and Major depressive disorder, recurrent episode, moderate F33.1 [facility] [address] [facility] [id number] [address] [place] [address] Apr, Generalized anxiety disorder F41.1 and Major depressive disorder, recurrent episode, moderate F33.1 [facility] [address] [facility] [id number] [address] [place] [phone] Apr, Generalized anxiety disorder F41.1 and Major depressive disorder, recurrent episode, moderate F33.1 [place] [address] [address] [facility] [id number] [address] [place] [address] March, Generalized anxiety disorder F41.1 and Major depressive disorder, recurrent episode, moderate F33.1 [place] [address] [place] [id number] [address] [place] [address] March, Generalized anxiety disorder F41.1 and Major depressive disorder, recurrent episode, moderate F33.1 [place] [address] [address] [facility] [id number] [address] [place] [phone] Feb, Generalized anxiety disorder F41.1 and Major depressive disorder, recurrent episode, moderate F33.1 [place] [address] [place] [id number] [address] [place] [address] Jan, Generalized anxiety disorder F41.1 and Major depressive disorder, recurrent episode, moderate F33.1 IMMUNIZATIONS No Known Immunizations SOCIAL HISTORY Never Assessed REASON FOR VISIT BH f/u PLAN OF CARE Activity Details Follow Up Next available Reason:depres subhash and anxiety VITAL SIGNS MEDICATIONS Unknown Medications RESULTS No Results PROCEDURES Procedure Date Ordered Result Body Site [facility] VISIT MENTAL HEALTH ESTAB PT May 12, 2018 Psychotherapy, patient &/family, 45 minutes, established pat ient May 12, 2018 INSTRUCTIONS MEDICATIONS ADMINISTERED No Known Medications [...] Hospitalization History February 2018 asthma [facility] [place] History allergic reactions
--- OUTSIDE RECORDS SUMMARY | 2019-12-11 10:43 | XMS REPORT ---
Author Author Renetta LEON Organization [facility] Address [address] [place] [address] Care Team Providers Care Gastroenterology Nurse Practitioner Name Role Phone SCOTT LEON Unavailable PROBLEMS Type Condition ICD9-CM Code [id number] Code Onset Dates Condition S tatus SNOMED Code Problem Major depressive disorder, recurrent episode, unspecified F33.9 Active [id number] Problem Generalized anxiety disorder F41.1 A ctive [id number] Problem Major depressive disorder, recurrent episode, moderate F33.1 Active [id number] ALLERGIES No Information ENCOUNTERS Encounter Location Date Diagnosis [facility] [address] [facility] [id number] [address] [place] [address] Jun, [facility] [address] [id number] [address] [place] [address] Jun, [facility] [address] [id number] [address] [place] [phone] May, [facility] [address] [id number] [address] [place] [phone] May, [facility] [address] [facility] [id number] [address] [place] [address] May, Major depressive disorder, r ecurrent episode, unspecified F33.9 and Generalized anxiety disorder F41.1 [facility] [address] [id number] [address] [place] [phone] Apr, Major depressive disorder, r ecurrent episode, unspecified F33.9 and Generalized anxiety disorder F41.1 [facility] [address] [id number] [address] [place] [address] Apr, Major depressive disorder, r ecurrent episode, unspecified F33.9 and Generalized anxiety disorder F41.1 [facility] [address] [facility] [id number] [address] [place] [address] March, Major depressive disorder, r ecurrent episode, unspecified F33.9 and Generalized anxiety disorder F41.1 [place] [address] [facility] [id number] [address] [place] [address] March, Major depressive disorder, r ecurrent episode, unspecified F33.9 and Generalized anxiety disorder F41.1 [place] [address] [facility] [id number] [address] [place] [address] March, Major depressive disorder, r ecurrent episode, unspecified F33.9 and Generalized anxiety disorder F41.1 [place] [address] [facility] [id number] [address] [place] [address] Feb, Major depressive disorder, r ecurrent episode, unspecified F33.9 and Generalized anxiety disorder F41.1 [place] [address] [facility] [id number] [address] [place] [address] Feb, Major depressive disorder, r ecurrent episode, unspecified F33.9 and Generalized anxiety disorder F41.1 [place] [address] [facility] [id number] [address] [place] [address] Feb, Major depressive disorder, r ecurrent episode, unspecified F33.9 and Generalized anxiety disorder F41.1 [place] [address] [facility] [id number] [address] [place] [phone] Jan, Major depressive disorder, r ecurrent episode, unspecified F33.9 and Generalized anxiety disorder F41.1 [place] [address] [facility] [id number] [address] [place] [address] Jan, Major depressive disorder, r ecurrent episode, unspecified F33.9 and Generalized anxiety disorder F41.1 [place] [address] [facility] [id number] [address] [place] [address] Dec, Major depressive disorder, r ecurrent episode, unspecified F33.9 and Generalized anxiety disorder F41.1 [place] [address] [id number] [address] [place] [address] Dec, Major depressive disorder, r ecurrent episode, unspecified F33.9 and Generalized anxiety disorder F41.1 [facility] [address] [id number] [address] [place] [address] Nov, Major depressive disorder, r ecurrent episode, unspecified F33.9 and Generalized anxiety disorder F41.1 [place] [address] [id number] [address] [place] [address] Jun, Generalized anxiety disorder F41.1 and Major depressive disorder, recurrent episode, moderate F33.1 [place] [address] [id number] [address] [place] [address] Jun, Generalized anxiety disorder F41.1 and Major depressive disorder, recurrent episode, moderate F33.1 [place] [address] [facility] [id number] [address] [place] [address] May, Generalized anxiety disorder F41.1 and Major depressive disorder, recurrent episode, moderate F33.1 [place] [address] [id number] [address] [place] [address] Apr, Generalized anxiety disorder F41.1 and Major depressive disorder, recurrent episode, moderate F33.1 [place] [address] [id number] [address] [place] [address] Apr, Generalized anxiety disorder F41.1 and Major depressive disorder, recurrent episode, moderate F33.1 [place] [address] [facility] [id number] [address] [place] [address] Apr, Generalized anxiety disorder F41.1 and Major depressive disorder, recurrent episode, moderate F33.1 [place] [address] [facility] [id number] [address] [place] [address] March, Generalized anxiety disorder F41.1 and Major depressive disorder, recurrent episode, moderate F33.1 [place] [address] [facility] [id number] [address] [place] [address] March, Generalized anxiety disorder F41.1 and Major depressive disorder, recurrent episode, moderate F33.1 [facility] [address] [facility] [id number] [address] [place] [address] Feb, Generalized anxiety disorder F41.1 and Major depressive disorder, recurrent episode, moderate F33.1 [facility] [address] [facility] [id number] [address] [address] Jan, Generalized anxiety disorder F41.1 and Major depressive disorder, recurrent episode, moderate F33.1 IMMUNIZATIONS No Known Immunizations SOCIAL HISTORY Never Assessed REASON FOR VISIT BH f/u, Depression. PLAN OF CARE Activity Details Follow Up Next available Reason:depres subhash VITAL SIGNS MEDICATIONS Unknown Medications RESULTS No Results PROCEDURES Procedure Date Ordered Result Body Site [facility] VISIT MENTAL HEALTH ESTAB PT February 03, 2018 Psychotherapy, patient &/family, 45 minutes, established pat ient February 03, 2018 INSTRUCTIONS MEDICATIONS ADMINISTERED No Known Medications
--- OUTSIDE RECORDS SUMMARY | 2019-12-11 10:43 | XMS REPORT ---
Author Author Renetta LEON Organization [facility] Address [address] [place] [address] Care Team Providers Care Press Reader Name Role Phone SCOTT LEON Unavailable PROBLEMS Type Condition ICD9-CM Code [id number] Code Onset Dates Condition S tatus SNOMED Code Problem Major depressive disorder, recurrent episode, unspecified F33.9 Active [id number] Problem Generalized anxiety disorder F41.1 A ctive 09413548 Problem Major depressive disorder, recurrent episode, moderate F33.1 Active [id number] ALLERGIES No Information ENCOUNTERS Encounter Location Date Diagnosis [place] [address] [facility] [id number] [address] [place] [phone] Jun, [place] [address] [id number] [address] [place] [address] May, [place] [id number] [id number] [address] [place] [address] May, [place] [address] [id number] [address] [place] [address] Apr, Major depressive disorder, r ecurrent episode, unspecified F33.9 and Generalized anxiety disorder F41.1 [place] [address] [id number] [address] [place] [address] Apr, Major depressive disorder, r ecurrent episode, unspecified F33.9 and Generalized anxiety disorder F41.1 [place] [address] [id number] [address] [place] [address] March, Major depressive disorder, r ecurrent episode, unspecified F33.9 and Generalized anxiety disorder F41.1 [place] [address] [id number] [address] [place] [address] March, Major depressive disorder, r ecurrent episode, unspecified F33.9 and Generalized anxiety disorder F41.1 [place] [address] [facility] [id number] [address] [place] [address] March, Major depressive disorder, r ecurrent episode, unspecified F33.9 and Generalized anxiety disorder F41.1 [place] [address] [facility] [id number] [address] [place] [address] Feb, Major depressive disorder, r ecurrent episode, unspecified F33.9 and Generalized anxiety disorder F41.1 [place] [address] [facility] [id number] [address] [place] [address] Feb, Major depressive disorder, r ecurrent episode, unspecified F33.9 and Generalized anxiety disorder F41.1 [place] [address] [facility] [id number] [address] [place] [address] Feb, Major depressive disorder, r ecurrent episode, unspecified F33.9 and Generalized anxiety disorder F41.1 [place] [address] [facility] [id number] [address] [place] [address] Jan, Major depressive disorder, r ecurrent episode, unspecified F33.9 and Generalized anxiety disorder F41.1 [place] [address] [facility] [id number] [address] [place] [address] Jan, Major depressive disorder, r ecurrent episode, unspecified F33.9 and Generalized anxiety disorder F41.1 [place] [address] [facility] [id number] [address] [place] [address] Dec, Major depressive disorder, r ecurrent episode, unspecified F33.9 and Generalized anxiety disorder F41.1 [place] [address] [facility] [id number] [address] [place] [address] Dec, Major depressive disorder, r ecurrent episode, unspecified F33.9 and Generalized anxiety disorder F41.1 [place] [address] [facility] [id number] [address] [place] [address] Nov, Major depressive disorder, r ecurrent episode, unspecified F33.9 and Generalized anxiety disorder F41.1 [facility] [address] [id number] [address] [place] [address] Jun, Generalized anxiety disorder F41.1 and Major depressive disorder, recurrent episode, moderate F33.1 [facility] [address] [id number] [address] [place] [address] Jun, Generalized anxiety disorder F41.1 and Major depressive disorder, recurrent episode, moderate F33.1 [facility] [address] [id number] [address] [place] [phone] May, Generalized anxiety disorder F41.1 and Major depressive disorder, recurrent episode, moderate F33.1 [facility] [address] [id number] [address] [place] [phone] Apr, Generalized anxiety disorder F41.1 and Major depressive disorder, recurrent episode, moderate F33.1 [facility] [address] [id number] [address] [place] [address] Apr, Generalized anxiety disorder F41.1 and Major depressive disorder, recurrent episode, moderate F33.1 [facility] [address] [id number] [address] [place] [address] Apr, Generalized anxiety disorder F41.1 and Major depressive disorder, recurrent episode, moderate F33.1 [facility] [address] [id number] [address] [place] [address] March, Generalized anxiety disorder F41.1 and Major depressive disorder, recurrent episode, moderate F33.1 [facility] [address] [id number] [address] [place] [phone] March, Generalized anxiety disorder F41.1 and Major depressive disorder, recurrent episode, moderate F33.1 [facility] [address] [id number] [address] [place] [phone] Feb, Generalized anxiety disorder F41.1 and Major depressive disorder, recurrent episode, moderate F33.1 [facility] [address] [id number] [address] [place] [address] Jan, Generalized anxiety disorder F41.1 and Major depressive disorder, recurrent episode, moderate F33.1 IMMUNIZATIONS No Known Immunizations SOCIAL HISTORY Never Assessed REASON FOR VISIT f/u, Depression and anxiety. PLAN OF CARE Activity Details Follow Up 1 Week Reason:depression and anxiety VITAL SIGNS MEDICATIONS Unknown Medications RESULTS No Results PROCEDURES Procedure Date Ordered Result Body Site [facility] VISIT MENTAL HEALTH ESTAB PT Jan 06, 2018 Psychotherapy, patient &/family, 45 minutes, established patient Jan 06, 2018 INSTRUCTIONS MEDICATIONS ADMINISTERED No Known Medications
--- OUTSIDE RECORDS SUMMARY | 2019-12-11 10:43 | XMS REPORT ---
Author Author Renetta LEON Organization [facility] [place] Address [address] [place] [address] Care Team Providers Care Qc Lab Technician Name Role Phone SCOTT LEON Unavailable PROBLEMS Type Condition ICD9-CM Code VOR10-LE Code Onset Dates Condition S tatus SNOMED Code Problem Major depressive disorder, recurrent episode, unspecified F33.9 Active [id number] Problem Generalized anxiety disorder F41.1 A ctive 95262176 Problem Major depressive disorder, recurrent episode, moderate F33.1 Active 951642545 ALLERGIES No Information ENCOUNTERS Encounter Location Date Diagnosis [facility] [place] [address] [facility] [id number] [address] [place] [phone] Jun, [facility] [place] [address] [id number] [address] [place] [phone] Jun, [facility] [place] [address] [id number] [address] [place] [phone] Jun, [facility] [place] [address] [id number] [address] [place] [phone] May, [facility] [place] [address] [facility] [id number] [address] [place] [phone] May, Major depressive disorder, r ecurrent episode, unspecified F33.9 and Generalized anxiety disorder F41.1 [facility] [place] [address] [id number] [address] [place] [phone] Apr, Major depressive disorder, r ecurrent episode, unspecified F33.9 and Generalized anxiety disorder F41.1 [facility] [place] [address] [id number] [address] [place] [id number] Apr, Major depressive disorder, r ecurrent episode, unspecified F33.9 and Generalized anxiety disorder F41.1 [facility] [place] [address] [facility] [id number] [address] [place] [phone] March, Major depressive disorder, r ecurrent episode, unspecified F33.9 and Generalized anxiety disorder F41.1 [place] [address] [facility] [id number] [address] [place] [address] March, Major depressive disorder, r ecurrent episode, unspecified F33.9 and Generalized anxiety disorder F41.1 [place] [address] [facility] [id number] [address] [place] [address] March, Major depressive disorder, r ecurrent episode, unspecified F33.9 and Generalized anxiety disorder F41.1 [place] [address] [facility] [id number] [address] [place] [phone] Feb, Major depressive disorder, r ecurrent episode, unspecified F33.9 and Generalized anxiety disorder F41.1 [place] [address] [facility] [id number] [address] [place] [phone] Feb, Major depressive disorder, r ecurrent episode, unspecified F33.9 and Generalized anxiety disorder F41.1 [place] [address] [facility] [id number] [address] [place] [phone] Feb, Major depressive disorder, r ecurrent episode, unspecified F33.9 and Generalized anxiety disorder F41.1 [place] [address] [facility] [id number] [address] [place] [address] Jan, Major depressive disorder, r ecurrent episode, unspecified F33.9 and Generalized anxiety disorder F41.1 [place] [address] [facility] [id number] [address] [place] [address] Jan, Major depressive disorder, r ecurrent episode, unspecified F33.9 and Generalized anxiety disorder F41.1 [place] [address] [facility] [id number] [address] [place] [phone] Dec, Major depressive disorder, r ecurrent episode, unspecified F33.9 and Generalized anxiety disorder F41.1 [place] [address] [id number] [address] [place] [address] Dec, Major depressive disorder, r ecurrent episode, unspecified F33.9 and Generalized anxiety disorder F41.1 [facility] [place] [address] [id number] [address] [place] [address] Nov, Major depressive disorder, r ecurrent episode, unspecified F33.9 and Generalized anxiety disorder F41.1 [place] [address] [id number] [address] [place] [address] Jun, Generalized anxiety disorder F41.1 and Major depressive disorder, recurrent episode, moderate F33.1 [place] [address] [id number] [address] [place] [address] Jun, Generalized anxiety disorder F41.1 and Major depressive disorder, recurrent episode, moderate F33.1 [place] [address] [facility] [id number] [address] [place] [address] May, Generalized anxiety disorder F41.1 and Major depressive disorder, recurrent episode, moderate F33.1 [place] [address] [id number] [address] [place] [address] Apr, Generalized anxiety disorder F41.1 and Major depressive disorder, recurrent episode, moderate F33.1 [place] [address] [id number] [address] [place] [address] Apr, Generalized anxiety disorder F41.1 and Major depressive disorder, recurrent episode, moderate F33.1 [place] [address] [facility] [id number] [address] [place] [address] Apr, Generalized anxiety disorder F41.1 and Major depressive disorder, recurrent episode, moderate F33.1 [place] [address] [facility] [id number] [address] [place] [address] March, Generalized anxiety disorder F41.1 and Major depressive disorder, recurrent episode, moderate F33.1 [place] [address] [facility] [id number] [address] [place] [address] March, Generalized anxiety disorder F41.1 and Major depressive disorder, recurrent episode, moderate F33.1 [facility] [place] [address] [facility] [id number] [address] [place] [address] Feb, Generalized anxiety disorder F41.1 and Major depressive disorder, recurrent episode, moderate F33.1 [facility] [place] [address] [facility] [id number] [address] [address] Jan, Generalized anxiety disorder F41.1 and Major depressive disorder, recurrent episode, moderate F33.1 IMMUNIZATIONS No Known Immunizations SOCIAL HISTORY Never Assessed REASON FOR VISIT BH f/u, Depression. PLAN OF CARE Activity Details Follow Up Next available Reason:depres subhash VITAL SIGNS MEDICATIONS Unknown Medications RESULTS No Results PROCEDURES Procedure Date Ordered Result Body Site [facility] VISIT MENTAL HEALTH ESTAB PT January 20, 2018 Psychotherapy, patient &/family, 45 minutes, established pat ient January 20, 2018 INSTRUCTIONS MEDICATIONS ADMINISTERED No Known Medications
--- OUTSIDE RECORDS SUMMARY | 2019-12-11 10:43 | XMS REPORT ---
Author Author Renetta LEON Organization [facility] Address [address] [place] [address] Care Team Providers Care Pool Player Name Role Phone SCOTT LEON Unavailable PROBLEMS Type Condition ICD9-CM Code YTH50-ST Code Onset Dates Condition S tatus SNOMED Code Problem Major depressive disorder, recurrent episode, unspecified F33.9 Active 422224090 Problem Generalized anxiety disorder F41.1 A ctive [id number] Problem Major depressive disorder, recurrent episode, moderate F33.1 Active [id number] ALLERGIES No Information ENCOUNTERS Encounter Location Date Diagnosis [place] [address] [address] [facility] [id number] [address] [place] [id number] Jun, [place] [address] [id number] [address] [place] [phone] May, [place] [address] [id number] [address] [place] [phone] May, [place] [address] [id number] [address] [place] [phone] Apr, Major depressive disorder, r ecurrent episode, unspecified F33.9 and Generalized anxiety disorder F41.1 [place] [address] [id number] [address] [place] [phone] Apr, Major depressive disorder, r ecurrent episode, unspecified F33.9 and Generalized anxiety disorder F41.1 [place] [address] [id number] [address] [place] [id number] March, Major depressive disorder, r ecurrent episode, unspecified F33.9 and Generalized anxiety disorder F41.1 [place] [address] [id number] [address] [place] [phone] March, Major depressive disorder, r ecurrent episode, unspecified F33.9 and Generalized anxiety disorder F41.1 [place] [address] [address] [facility] [id number] [address] [place] [phone] March, Major depressive disorder, r ecurrent episode, unspecified F33.9 and Generalized anxiety disorder F41.1 [place] [address] [address] [facility] [id number] [address] [place] [phone] Feb, Major depressive disorder, r ecurrent episode, unspecified F33.9 and Generalized anxiety disorder F41.1 [place] [address] [address] [facility] [id number] [address] [place] [phone] Feb, Major depressive disorder, r ecurrent episode, unspecified F33.9 and Generalized anxiety disorder F41.1 [place] [address] [address] [facility] [id number] [address] [place] [phone] Feb, Major depressive disorder, r ecurrent episode, unspecified F33.9 and Generalized anxiety disorder F41.1 [place] [address] [address] [facility] [id number] [address] [place] [phone] Jan, Major depressive disorder, r ecurrent episode, unspecified F33.9 and Generalized anxiety disorder F41.1 [place] [address] [address] [facility] [id number] [address] [place] [phone] Jan, Major depressive disorder, r ecurrent episode, unspecified F33.9 and Generalized anxiety disorder F41.1 [place] [address] [address] [facility] [id number] [address] [place] [phone] Dec, Major depressive disorder, r ecurrent episode, unspecified F33.9 and Generalized anxiety disorder F41.1 [place] [address] [address] [facility] [id number] [address] [place] [phone] Dec, Major depressive disorder, r ecurrent episode, unspecified F33.9 and Generalized anxiety disorder F41.1 [place] [address] [address] [facility] [id number] [address] [place] [phone] Nov, Major depressive disorder, r ecurrent episode, unspecified F33.9 and Generalized anxiety disorder F41.1 [facility] [address] [id number] [address] [place] [id number] Jun, Generalized anxiety disorder F41.1 and Major depressive disorder, recurrent episode, moderate F33.1 [facility] [address] [id number] [address] [place] [phone] Jun, Generalized anxiety disorder F41.1 and Major depressive disorder, recurrent episode, moderate F33.1 [facility] [address] [id number] [address] [place] [phone] May, Generalized anxiety disorder F41.1 and Major depressive disorder, recurrent episode, moderate F33.1 [facility] [address] [id number] [address] [place] [phone] Apr, Generalized anxiety disorder F41.1 and Major depressive disorder, recurrent episode, moderate F33.1 [facility] [address] [id number] [address] [place] [phone] Apr, Generalized anxiety disorder F41.1 and Major depressive disorder, recurrent episode, moderate F33.1 [facility] [address] [id number] [address] [place] [phone] Apr, Generalized anxiety disorder F41.1 and Major depressive disorder, recurrent episode, moderate F33.1 [facility] [address] [id number] [address] [place] [phone] March, Generalized anxiety disorder F41.1 and Major depressive disorder, recurrent episode, moderate F33.1 [facility] [address] [id number] [address] [place] [phone] March, Generalized anxiety disorder F41.1 and Major depressive disorder, recurrent episode, moderate F33.1 [facility] [address] [id number] [address] [place] [phone] Feb, Generalized anxiety disorder F41.1 and Major depressive disorder, recurrent episode, moderate F33.1 [facility] [address] [id number] [address] [place] [phone] Jan, Generalized anxiety disorder F41.1 and Major depressive disorder, recurrent episode, moderate F33.1 IMMUNIZATIONS No Known Immunizations SOCIAL HISTORY Never Assessed REASON FOR VISIT f/u, Depression and anxiety. PLAN OF CARE Activity Details Follow Up Next available Reason:depres subhash and anxiety VITAL SIGNS MEDICATIONS Unknown Medications RESULTS No Results PROCEDURES Procedure Date Ordered Result Body Site COUNT INCLUDES THE [facility] VISIT MENTAL HEALTH ESTAB PT Jan 11, 2018 Psychotherapy, patient &/family, 45 minutes, established patient Jan 11, 2018 INSTRUCTIONS MEDICATIONS ADMINISTERED No Known Medications
--- OUTSIDE RECORDS SUMMARY | 2019-12-11 10:43 | XMS REPORT | Continuity of Care Document ---
Author Organization Unknown Address Unknown Phone Unavailable Allergies Active Description Code Type Severity Reaction Onset Reported/Identified Relationship to Patient Clinical Status Yes ASPIRIN, BUFFERED MILD MILD Yes CODEINE SULFATE U NKNOWN UNKNOWN Yes GABAPENTIN MODERATE MODERATE Yes HEXACHLOROPHENE ANALOGUES UNKNOWN UNKNOWN Yes KEFLEX UNKNOWN UNKNOWN Yes PENICILLINS UNKNOWN UNKNOWN Yes [id number]-[id number] REDUCTASE INHIBITORS UNKNOWN OTHER Yes [id number] REDUCTASE INHIBITORS UNKNOWN UNKNOWN Yes SULFA (SULFONAMIDE ANTIBIOTICS) UNKNOWN UNKNOWN Yes ampicillin [id number] Drug Allerg y Unknown N/A 02/10/2015 Yes aspirin [id number] Drug Allergy Unknown N/A 02/10/[id number] ug Allergy Unknown N/A 02/10/2015 Yes codeine [id number] Drug Allergy Unknown N/A 02/10/2015 Yes duloxetine [id number] Drug Allerg y Unknown N/A 02/10/2015 Yes erythromycin base [id number] Drug Allergy Unknown N/A 02/10/2015 Yes ezetimibe [id number] Drug Allergy Unknown N/A 02/10/2015 Yes Iodinated Contrast Media [id number] Drug Allergy Unknown N/A 02/10/2015 Yes Iodinated Contrast Media - IV Dye [id number] Drug Allergy Unknown N/A 015 Yes Iodinated Contrast- Oral and IV Dye [id number] Drug Allergy Unknown N/A 02/10/2015 Yes latex [id number] Drug Allergy Unknown N/A 02/10/2015 Yes methohexital [id number] Drug Allergy Unknown N/A 02/10/2015 Yes nickel [id number] Drug Allergy Unknown N/A 02/10/2015 Yes simvastatin [id number] Drug Aller gy Unknown N/A 02/10/2015 Yes Sulfa (Sulfonamide Antibiotics) [id number] Drug Allergy Unknown N/A 015 Medications There is no data. Problems Date Dx Coded Attending Type Code Diagnosis Diagnosed By 02/10/2015 KIRA YIN MD Ot 414.00 02/10/2015 KIRA YIN MD Ot 424.1 02/10/2015 KIRA YIN MD Ot 786.09 02/10/2015 KIRA YIN MD Ot 786.50 02/10/2015 BRIANA MOBLEY MD Ot 414.01 CORONARY ATHEROSCLEROSIS OF [place] CORON 02/10/2015 BRIANA MOBLEY MD Ot 723.0 CERVICAL SPINAL STENOSIS 02/10/2015 BRIANA MOBLEY MD Ot 724.1 PAIN IN THORACIC SPINE 02/10/2015 BRIANA MOBLEY MD Ot 786.59 CHEST PAIN NEC 10/11/2015 JAMILA CHESTER, KM Marx Ot G47.33 OBSTRUCTIVE SLEEP APNEA (ADULT) (PEDIATR 10/11/2015 KM MARINO MD Ot G47.61 PERIODIC LIMB MOVEMENT DISORDER 01/03/2016 HOSSEIN CHESTER, RACHEL Beltran Ot H83. 09 LABYRINTHITIS, UNSPECIFIED EAR 01/03/2016 HOSSEIN CHESTER, RACHEL Beltran Ot J01. 80 OTHER ACUTE SINUSITIS 01/03/2016 HOSSEIN CHESTER, RACHEL Beltran Ot R42 DIZZINESS AND GIDDINESS 04/20/2017 Roel Bunch W M54.2 CERVICALGIA 04/21/2017 KM MARINO 723.1 CERVICALGIA 04/21/2017 KM MARINO 723.4 BRACHIAL NEURITIS OR RADICULITIS NOS 04/21/2017 KM MARINO M54.12 RADICULOPATHY, CERVICAL REGION 04/21/2017 KM MARINO M54.2 CERVICALGIA 08/31/2017 A 715.16 OST EOARTHROSIS, LOCALIZED, PRIMARY, INVOLVING LOWER LEG 08/31/2017 W 724.3 SCIATICA 08/31/2017 A M17.0 BILA TERAL PRIMARY OSTEOARTHRITIS OF KNEE 08/31/2017 W M54.31 SCI ATICA, RIGHT SIDE 10/03/2017 W 278.01 MOR BID OBESITY 10/03/2017 A 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 10/03/2017 W 715.16 OST EOARTHROSIS, LOCALIZED, PRIMARY, INVOLVING LOWER LEG 10/03/2017 W 722.52 DEG ENERATION OF LUMBAR OR LUMBOSACRAL INTERVERTEBRAL DISC 10/03/2017 W 780.93 MEM ORY LOSS 10/03/2017 W 854.00 INT RACRANIAL INJURY OF OTHER AND UNSPECIFIED NATURE, WITHOUT MENTION OF OPEN INTRACRANIAL WOUND, WITH STATE OF CONSCIOUSNESS UNSPECIFIED 10/03/2017 W E66.01 MOR BID (SEVERE) OBESITY DUE TO EXCESS CALORIES 10/03/2017 A 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 10/03/2017 W M17.0 BIL[address]AL PRIMARY OSTEOARTHRITIS OF KNEE 10/03/2017 W 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, THORACOLUMBAR REGION 10/03/2017 W S06.9X0 UN SPECIFIED INTRACRANIAL INJURY WITHOUT LOSS OF CONSCIOUSNESS 02/15/2018 KM MARINO 250.00 DIABETES MELLITUS WITHOUT MENTION OF COMPLICATION, TYPE II OR UNSPECIFIED TYPE, NOT STATED UNCONTROLLED 02/15/2018 KM MARINO 401.0 [...] MENTION OF COMPLICATION, TYPE II OR UNSPECIFIED TYPE, NOT STATED UNCONTROLLED 02/15/2018 KM MARINO 401.0 MALIGNANT ESSENTIAL HYPERTENSION 02/15/2018 KM MARINO E11.9 TYPE 2 DIABETES MELLITUS WITHOUT COMPLICATIONS 02/15/2018 KM MARINO I10 ESSENTIAL (PRIMARY) HYPERTENSION 02/15/2018 KM MARINO V70.0 ROUTINE GENERAL MEDICAL EXAMINATION AT A HEALTH CARE FACILITY 02/15/2018 KM MARINO Z00.00 ENCOUNTER FOR GENERAL ADULT MEDICAL EXAMINATION WITHOUT ABNORMAL FINDINGS 02/15/2018 W 250.00 DAVID BETES MELLITUS WITHOUT MENTION OF COMPLICATION, TYPE II OR UNSPECIFIED TYPE, NOT STATED UNCONTROLLED 02/15/2018 W 401.0 SUSAN GNANT ESSENTIAL HYPERTENSION 02/15/2018 W E11.9 TYPE 2 DIABETES MELLITUS WITHOUT COMPLICATIONS 02/15/2018 W I10 ESSENT IAL (PRIMARY) HYPERTENSION 02/15/2018 W V70.0 ROUT INE GENERAL MEDICAL EXAMINATION AT A HEALTH CARE FACILITY 02/15/2018 W V76.10 TREE AST SCREENING, UNSPECIFIED 02/15/2018 W Z00.00 ENC OUNTER FOR GENERAL ADULT MEDICAL EXAMINATION WITHOUT ABNORMAL FINDINGS 02/15/2018 W Z12.39 ENC OUNTER FOR OTHER SCREENING FOR MALIGNANT NEOPLASM OF BREAST 02/15/2018 KM MARINO W 250.00 DIABETES MELLITUS WITHOUT MENTION OF COMPLICATION, TYPE II OR UNSPECIFIED TYPE, NOT STATED UNCONTROLLED 02/15/2018 KM MARINO W 401.0 MALIGNANT ESSENTIAL HYPERTENSION 02/15/2018 MARINO, KM W E11.9 TYPE 2 DIABETES MELLITUS WITHOUT COMPLICATIONS 02/15/2018 KM MARINO W I10 ESSENTIAL (PRIMARY) HYPERTENSION 02/15/2018 MARINO, KM W V70.0 ROUTINE GENERAL MEDICAL EXAMINATION AT A HEALTH CARE FACILITY 02/15/2018 KM MARINO W Z00.00 ENCOUNTER FOR GENERAL ADULT MEDICAL EXAMINATION WITHOUT ABNORMAL FINDINGS 02/23/2018 W 401.0 SUSAN GNANT ESSENTIAL HYPERTENSION 02/23/2018 A 493.92 AST HMA, UNSPECIFIED WITH (ACUTE) EXACERBATION 02/23/2018 W 726.12 BIC IPITAL TENOSYNOVITIS 02/23/2018 W I10 ESSENT IAL (PRIMARY) HYPERTENSION 02/23/2018 A J45.21 MIL D INTERMITTENT ASTHMA WITH (ACUTE) EXACERBATION 02/23/2018 W M75.22 BIC IPITAL TENDINITIS, LEFT SHOULDER 04/05/2018 W 278.00 OBE SITY, UNSPECIFIED 04/05/2018 A 553.3 DIAP HRAGMATIC HERNIA WITHOUT MENTION OF OBSTRUCTION OR GANGRENE 04/05/2018 W E66.9 OBES ITY, UNSPECIFIED 04/05/2018 A K44.0 DIAP HRAGMATIC HERNIA WITH OBSTRUCTION, WITHOUT GANGRENE 04/11/2018 DEEPA CORDERO MD Ot K21.9 GASTRO-ESOPHAGEAL REFLUX DISEASE WITHOUT 04/11/2018 DEEPA CORDERO MD Ot Z01.81 8 ENCOUNTER FOR OTHER PREPROCEDURAL EXAMIN 04/11/2018 DEEPA CORDERO MD Ot Z12.11 ENCOUNTER FOR SCREENING FOR MALIGNANT NE 04/11/2018 DEEPA CORDERO MD Ot Z86.01 0 PERSONAL HISTORY OF COLONIC POLYPS 04/12/2018 KIRA YIN MD Ot 414.00 CORON ATHEROSCLER NOS TYPE VESSEL, NATIV 04/12/2018 KIRA YIN MD Ot 424.1 AORTIC VALVE DISORDER 04/12/2018 KIRA YIN MD Ot 786.09 RESPIRATORY ABNORM NEC 04/12/2018 KIRA YIN MD Ot 786.50 CHEST PAIN NOS 04/12/2018 DEEPA CORDERO MD, Ot E03.9 HYPOTHYROIDISM, UNSPECIFIED 04/12/2018 DEEPA CORDERO MD, Ot E11.9 TYPE 2 DIABETES MELLITUS WITHOUT COMPLIC 04/12/2018 DEEPA CORDERO MD, Ot G47.33 OBSTRUCTIVE SLEEP APNEA (ADULT) (PEDIATR 04/12/2018 DEEPA CORDERO MD, Ot I10 ESSENTIAL (PRIMARY) HYPERTENSION 04/12/2018 DEEPA CORDERO MD, Ot I25.10 ATHSCL HEART DISEASE OF [place] CORONARY 04/12/2018 DEEPA CORDERO MD, Ot J45.90 9 UNSPECIFIED ASTHMA, UNCOMPLICATED 04/12/2018 DEEPA CORDERO MD, Ot K21.0 GASTRO-ESOPHAGEAL REFLUX DISEASE WITH ES 04/12/2018 DEEPA CORDERO MD, Ot K29.70 GASTRITIS, UNSPECIFIED, WITHOUT BLEEDING 04/12/2018 DEEPA CORDERO MD, Ot K44.9 DIAPHRAGMATIC HERNIA WITHOUT OBSTRUCTION 04/12/2018 DEEPA CORDERO MD, Ot K63.5 POLYP OF COLON 04/12/2018 DEEPA CORDERO MD, Ot K64.2 THIRD DEGREE HEMORRHOIDS 04/12/2018 DEEPA CORDERO MD, Ot Z12.11 ENCOUNTER FOR SCREENING FOR MALIGNANT NE 04/12/2018 DEEPA CORDERO MD Ot Z79.84 SENIOR CARE (CURRENT) USE OF ORAL HYPOGLYC 04/12/2018 DEEPA CORDERO MD, Ot Z79.89 9 OTHER PARTS SALES REPRESENTATIVE (CURRENT) DRUG THERAPY 04/12/2018 DEEPA CORDERO MD, Ot 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 04/12/2018 DEEPA CORDERO MD, Ot K21.9 GASTRO-ESOPHAGEAL REFLUX DISEASE WITHOUT 04/12/2018 DEEPA CORDERO MD, Ot Z01.81 8 ENCOUNTER FOR OTHER PREPROCEDURAL EXAMIN 04/12/2018 KIDO MD, TAKAAKI Ot Z12.11 ENCOUNTER FOR SCREENING FOR MALIGNANT NE 04/12/2018 DEEPA CORDERO MD, Ot Z86.01 0 PERSONAL HISTORY OF COLONIC POLYPS 04/13/2018 DEEPA CORDERO MD, Ot E03.9 HYPOTHYROIDISM, UNSPECIFIED 04/13/2018 DEEPA CORDERO MD, Ot E11.9 TYPE 2 DIABETES MELLITUS WITHOUT COMPLIC 04/13/2018 DEEPA CORDERO MD, Ot G47.33 OBSTRUCTIVE SLEEP APNEA (ADULT) (PEDIATR 04/13/2018 DEEPA CORDERO MD, Ot I10 ESSENTIAL (PRIMARY) HYPERTENSION 04/13/2018 DEEPA CORDERO MD, Ot I25.10 ATHSCL HEART DISEASE OF [place] CORONARY 04/13/2018 DEEPA CORDERO MD, Ot J45.90 9 UNSPECIFIED ASTHMA, UNCOMPLICATED 04/13/2018 DEEPA CORDERO MD, Ot K21.0 GASTRO-ESOPHAGEAL REFLUX DISEASE WITH ES 04/13/2018 DEEPA CORDERO MD, Ot K29.70 GASTRITIS, UNSPECIFIED, WITHOUT BLEEDING 04/13/2018 DEEPA CORDERO MD, Ot K44.9 DIAPHRAGMATIC HERNIA WITHOUT OBSTRUCTION 04/13/2018 DEEPA CORDERO MD, Ot K63.5 POLYP OF COLON 04/13/2018 DEEPA CORDERO MD, Ot K64.2 THIRD DEGREE HEMORRHOIDS 04/13/2018 DEEPA CORDERO MD, Ot Z12.11 ENCOUNTER FOR SCREENING FOR MALIGNANT NE 04/13/2018 DEEPA CORDERO MD, Ot Z79.84 SENIOR CARE (CURRENT) USE OF ORAL HYPOGLYC 04/13/2018 DEEPA CORDERO MD, Ot Z79.89 9 OTHER PARTS SALES REPRESENTATIVE (CURRENT) DRUG THERAPY 04/13/2018 DEEPA CORDERO MD, Ot 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 07/28/2018 W 078.12 FRIDA NTAR WART 07/28/2018 W B07.0 PLAN TAR WART 08/31/2018 KM MARINO V70.0 ROUTINE GENERAL MEDICAL EXAMINATION AT A HEALTH CARE FACILITY 08/31/2018 KM MARINO Z00.01 ENCOUNTER FOR GENERAL ADULT MEDICAL EXAMINATION WITH ABNORMAL FINDINGS 08/31/2018 KM MARINO 250.00 DIABETES MELLITUS WITHOUT MENTION OF COMPLICATION, TYPE II OR UNSPECIFIED TYPE, NOT STATED UNCONTROLLED 08/31/2018 MARINO, KM W 401.0 MALIGNANT ESSENTIAL HYPERTENSION 08/31/2018 JAMILA KM W E11.9 TYPE 2 DIABETES MELLITUS WITHOUT COMPLICATIONS 08/31/2018 KM MARINO W I10 ESSENTIAL (PRIMARY) HYPERTENSION 08/31/2018 KM MARINO V70.0 ROUTINE GENERAL MEDICAL EXAMINATION AT A HEALTH CARE FACILITY 08/31/2018 KM MARINO Z00.01 ENCOUNTER FOR GENERAL ADULT MEDICAL EXAMINATION WITH ABNORMAL FINDINGS 08/31/2018 KM MARINO W 250.00 DIABETES MELLITUS WITHOUT MENTION OF COMPLICATION, TYPE II OR UNSPECIFIED TYPE, NOT STATED UNCONTROLLED 08/31/2018 KM MARINO 401.0 MALIGNANT ESSENTIAL HYPERTENSION 08/31/2018 KM MARINO W E11.9 TYPE 2 DIABETES MELLITUS WITHOUT COMPLICATIONS 08/31/2018 KM MARINO I10 ESSENTIAL (PRIMARY) HYPERTENSION 08/31/2018 JAMILA MK W V70.0 ROUTINE GENERAL MEDICAL EXAMINATION AT A HEALTH CARE FACILITY 08/31/2018 KM MARINO Z00.01 ENCOUNTER FOR GENERAL ADULT MEDICAL EXAMINATION WITH ABNORMAL FINDINGS 08/31/2018 KM MARINO V76.10 BREAST SCREENING, UNSPECIFIED 08/31/2018 KM MARINO Z12.39 ENCOUNTER FOR OTHER SCREENING FOR MALIGNANT NEOPLASM OF BREAST 08/31/2018 W 250.00 DAVID BETES MELLITUS WITHOUT MENTION OF COMPLICATION, TYPE II OR UNSPECIFIED TYPE, NOT STATED UNCONTROLLED 08/31/2018 W 401.0 SUSAN GNANT ESSENTIAL HYPERTENSION 08/31/2018 W E11.9 TYPE 2 DIABETES MELLITUS WITHOUT COMPLICATIONS 08/31/2018 W I10 ESSENT IAL (PRIMARY) HYPERTENSION 08/31/2018 W V70.0 ROUT INE GENERAL MEDICAL EXAMINATION AT A HEALTH CARE FACILITY 08/31/2018 W V76.10 TREE AST SCREENING, UNSPECIFIED 08/31/2018 W Z00.01 ENC OUNTER FOR GENERAL ADULT MEDICAL EXAMINATION WITH ABNORMAL FINDINGS 08/31/2018 W Z12.39 ENC OUNTER FOR OTHER SCREENING FOR MALIGNANT NEOPLASM OF BREAST 08/31/2018 KM MARINO W 250.00 DIABETES MELLITUS WITHOUT MENTION OF COMPLICATION, TYPE II OR UNSPECIFIED TYPE, NOT STATED UNCONTROLLED 08/31/2018 KM MARINO 401.0 MALIGNANT ESSENTIAL HYPERTENSION 08/31/2018 KM MARINO E11.9 TYPE 2 DIABETES MELLITUS WITHOUT COMPLICATIONS 08/31/2018 MARINO, KM W I10 ESSENTIAL (PRIMARY) HYPERTENSION 08/31/2018 KM MARINO W V70.0 ROUTINE GENERAL MEDICAL EXAMINATION AT A HEALTH CARE FACILITY 08/31/2018 KM MARINO W Z00.01 ENCOUNTER FOR GENERAL ADULT MEDICAL EXAMINATION WITH ABNORMAL FINDINGS 08/31/2018 KM MARINO W V76.10 BREAST SCREENING, UNSPECIFIED 08/31/2018 KM MARINO W Z12.39 ENCOUNTER FOR OTHER SCREENING FOR MALIGNANT NEOPLASM OF BREAST 12/26/2018 W 493.92 AST HMA, UNSPECIFIED WITH (ACUTE) EXACERBATION 12/26/2018 W J45.21 MIL D INTERMITTENT ASTHMA WITH (ACUTE) EXACERBATION 01/10/2019 W 466.0 ACUT E BRONCHITIS 01/10/2019 W 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.21 OBS TRUCTIVE CHRONIC BRONCHITIS WITH (ACUTE) EXACERBATION 01/10/2019 W J20.9 ACUT E BRONCHITIS, UNSPECIFIED 01/10/2019 W J44.1 RN ADMISSIONS MARICRUZ OBSTRUCTIVE PULMONARY DISEASE WITH (ACUTE) EXACERBATION 03/01/2019 W 250.00 DAVID BETES MELLITUS WITHOUT MENTION OF COMPLICATION, TYPE II OR UNSPECIFIED TYPE, NOT STATED UNCONTROLLED 03/01/2019 W 272.4 OTHE R AND UNSPECIFIED HYPERLIPIDEMIA 03/01/2019 W 401.0 SUSAN GNANT ESSENTIAL HYPERTENSION 03/01/2019 W 691.8 OTHE R ATOPIC DERMATITIS AND RELATED CONDITIONS 03/01/2019 W 724.3 SCIATICA 03/01/2019 W E11.9 TYPE 2 DIABETES MELLITUS WITHOUT COMPLICATIONS 03/01/2019 W E78.5 HYPE RLIPIDEMIA, UNSPECIFIED 03/01/2019 W I10 ESSENT IAL (PRIMARY) HYPERTENSION 03/01/2019 W L20.9 ATOP IC DERMATITIS, UNSPECIFIED 03/01/2019 W M54.32 SCI ATICA, LEFT SIDE 03/01/2019 W V70.0 ROUT INE GENERAL MEDICAL EXAMINATION AT A HEALTH CARE FACILITY 03/01/2019 W Z00.00 ENC OUNTER FOR GENERAL ADULT MEDICAL EXAMINATION WITHOUT ABNORMAL FINDINGS 06/06/2019 W 786.50 UNS PECIFIED CHEST PAIN 06/06/2019 W R07.9 CHES T PAIN, UNSPECIFIED 06/11/2019 HUMPHREY CHESTER, KIRA Scherer Ot 414.00 CORON ATHEROSCLER NOS TYPE VESSEL, NATIV 06/11/2019 HUMPHREY CHESTER, KIRA Scherer Ot 424.1 AORTIC VALVE DISORDER 06/11/2019 HUMPHREY CHESTER, KIRA Scherer Ot 786.09 RESPIRATORY ABNORM NEC 06/11/2019 HUMPHREY CHESTER, KIRA Scherer Ot 786.50 CHEST PAIN NOS 06/11/2019 JOHNNY MATHEWSP Ot E11.9 TYPE 2 DIABETES MELLITUS WITHOUT COMPLIC 06/11/2019 JOHNNY MATHEWSP Ot G47.30 SLEEP APNEA, UNSPECIFIED 06/11/2019 JOHNNY MATHEWSP Ot I10 ESSENTIAL (PRIMARY) HYPERTENSION 06/11/2019 JOHNNY MATHEWSP Ot I25.10 ATHSCL HEART DISEASE OF [place] CORONARY 06/11/2019 JOHNNY MATHEWSP Ot J45.909 UNSPECIFIED ASTHMA, UNCOMPLICATED 06/11/2019 JOHNNY MATHEWSP Ot K21.9 GASTRO-ESOPHAGEAL REFLUX DISEASE WITHOUT 06/11/2019 JOHNNY MATHEWS POULTRY TENDER Ot K58.9 IRRITABLE BOWEL SYNDROME WITHOUT DIARRHE 06/11/2019 JOHNNY MATHEWS POULTRY TENDER Ot R07.89 OTHER CHEST PAIN 06/11/2019 JOHNNY MATHEWSP Ot Z82.49 FAMILY HX OF [place] HEART DIS AND OTH DI 06/11/2019 JOHNNY MATHEWSP Ot Z87.820 PERSONAL HISTORY OF TRAUMATIC BRAIN INJU 06/11/2019 JOHNNY MATHEWSP Ot Z88.1 ALLERGY STATUS TO OTHER ANTIBIOTIC AGENT 06/11/2019 JOHNNY MATHEWSP Ot Z88.2 ALLERGY STATUS TO SULFONAMIDES STATUS 06/11/2019 JOHNNY MATHEWSP Ot Z88.5 ALLERGY STATUS TO NARCOTIC AGENT STATUS 06/11/2019 JOHNNY MATHEWSP Ot Z88.6 ALLERGY STATUS TO ANALGESIC AGENT STATUS 06/11/2019 JOHNNY MATHEWSP Ot Z88.8 ALLERGY STATUS TO [facility] DRUG/MEDS/BIOL SUB 06/11/2019 JOHNNY MATHEWS POULTRY TENDER Ot Z90.49 ACQUIRED ABSENCE OF OTHER SPECIFIED PART 06/11/2019 JOHNNY MATHEWSP Ot Z90.710 ACQUIRED ABSENCE OF BOTH CERVIX AND UTER 06/11/2019 JOHNNY MATHEWS POULTRY TENDER Ot Z90.89 ACQUIRED ABSENCE OF OTHER ORGANS 06/11/2019 JOHNNY MATHEWSP Ot Z91.040 LATEX ALLERGY STATUS 06/11/2019 JOHNNY MATHEWSP Ot Z91.041 RADIOGRAPHIC DYE ALLERGY STATUS 06/11/2019 JOHNNY MATHEWS POULTRY TENDER Ot Z95.9 PRESENCE OF CARDIAC AND VASCULAR IMPLANT 06/14/2019 BISI, JOHNNY POULTRY TENDER Ot E11.9 TYPE 2 DIABETES MELLITUS WITHOUT COMPLIC 06/14/2019 BISIJOHNNY Matthews POULTRY TENDER Ot G47.30 SLEEP APNEA, UNSPECIFIED 06/14/2019 BISI, JOHNNY POULTRY TENDER Ot I10 ESSENTIAL (PRIMARY) HYPERTENSION 06/14/2019 BISIJOHNNY Matthews POULTRY TENDER Ot I25.10 ATHSCL HEART DISEASE OF [place] CORONARY 06/14/2019 BISIJOHNNY MatthewsP Ot J45.909 UNSPECIFIED ASTHMA, UNCOMPLICATED 06/14/2019 BISI, JOHNNY POULTRY TENDER Ot K21.9 GASTRO-ESOPHAGEAL REFLUX DISEASE WITHOUT 06/14/2019 BISI, JOHNNY POULTRY TENDER Ot K58.9 IRRITABLE BOWEL SYNDROME WITHOUT DIARRHE 06/14/2019 BISIJOHNNY Matthews POULTRY TENDER Ot R07.89 OTHER CHEST PAIN 06/14/2019 BISI, JOHNNY POULTRY TENDER Ot Z82.49 FAMILY HX OF I[place] HEART DIS AND OTH DI 06/14/2019 BISIJOHNNY MatthewsP Ot Z87.820 PERSONAL HISTORY OF TRAUMATIC BRAIN INJU 06/14/2019 BISIJOHNNY Matthews POULTRY TENDER Ot Z88.1 ALLERGY STATUS TO OTHER ANTIBIOTIC AGENT 06/14/2019 BISI, JOHNNY POULTRY TENDER Ot Z88.2 ALLERGY STATUS TO SULFONAMIDES STATUS 06/14/2019 BISI, JOHNNY POULTRY TENDER Ot Z88.5 ALLERGY STATUS TO NARCOTIC AGENT STATUS 06/14/2019 BISI, JOHNNY POULTRY TENDER Ot Z88.6 ALLERGY STATUS TO ANALGESIC AGENT STATUS 06/14/2019 BISI, JOHNNY POULTRY TENDER Ot Z88.8 ALLERGY STATUS TO OT DRUG/MEDS/BIOL SUB 06/14/2019 BISI, JOHNNY POULTRY TENDER Ot Z90.49 ACQUIRED ABSENCE OF OTHER SPECIFIED PART 06/14/2019 BISI, JOHNNY POULTRY TENDER Ot Z90.710 ACQUIRED ABSENCE OF BOTH CERVIX AND UTER 06/14/2019 BISI, JOHNNY POULTRY TENDER Ot Z90.89 ACQUIRED ABSENCE OF OTHER ORGANS 06/14/2019 BISIJOHNNY Matthews POULTRY TENDER Ot Z91.040 LATEX ALLERGY STATUS 06/14/2019 BISI, JOHNNY POULTRY TENDER Ot Z91.041 RADIOGRAPHIC DYE ALLERGY STATUS 06/14/2019 BISI, JOHNNY POULTRY TENDER Ot Z95.9 PRESENCE OF CARDIAC AND VASCULAR IMPLANT 06/27/2019 KM MARINO 424.1 AORTIC VALVE DISORDERS 06/27/2019 MARINO, KM W I35.0 NONRHEUMATIC AORTIC (VALVE) STENOSIS 06/27/2019 ADENIKE MARINOHEL W 424.1 AORTIC VALVE DISORDERS 06/27/2019 KM MARINO W I35.0 NONRHEUMATIC AORTIC (VALVE) STENOSIS 06/27/2019 ADENIKE MARINOHEL W 424.1 AORTIC VALVE DISORDERS 06/27/2019 KM MARINO W I35.0 NONRHEUMATIC AORTIC (VALVE) STENOSIS 07/26/2019 Isabel Muñoz 729.99 OTHER DISORDERS OF SOFT TISSUE 07/26/2019 Isabel Muñoz W 789.09 ABDOMINAL PAIN, OTHER SPECIFIED SITE; MULTIPLE SITES 07/26/2019 Isabel Muñoz R10.2 PELVIC AND PERINEAL PAIN 07/26/2019 Isabel Muñoz T14.8 OTHER INJURY OF UNSPECIFIED BODY REGION 08/23/2019 Roel Bunch J45.998 OTHER ASTHMA 09/17/2019 Roel Bunch J01.90 ACUTE SINUSITIS, UNSPECIFIED 10/01/2019 Roel Bunch G47.33 OBSTRUCTIVE SLEEP APNEA (ADULT) (PEDIATRIC) 10/03/2019 NICHOLAS CHESTER, MACK Valerio Ot 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 10/06/2019 Roel Bunch 401.0 MALIGNANT ESSENTIAL HYPERTENSION 10/06/2019 Roel Bunch 426.3 OTHER LEFT BUNDLE BRANCH BLOCK 10/06/2019 Roel Bunch E11.9 TYPE 2 DIABETES MELLITUS WITHOUT COMPLICATIONS 10/06/2019 Roel Bunch I10 ESSENTIAL (PRIMARY) HYPERTENSION 10/06/2019 Roel Bunch I35.0 NONRHEUMATIC AORTIC (VALVE) STENOSIS 10/06/2019 Roel Bunch I44.7 LEFT BUNDLE-BRANCH BLOCK, UNSPECIFIED 10/06/2019 Roel Bunch J44.1 CHRONIC OBSTRUCTIVE PULMONARY DISEASE W (ACUTE) EXACERBATION 10/06/2019 Roel Bunch J45.21 MILD INTERMITTENT ASTHMA WITH (ACUTE) EXACERBATION 10/06/2019 Roel Bunch L20.9 ATOPIC DERMATITIS, UNSPECIFIED 10/06/2019 Roel Bunch 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, THORACOLUMBAR REGION 10/06/2019 Roel Bunch M54.32 SCIATICA, LEFT SIDE 10/06/2019 Roel Bunch R07.9 CHEST PAIN, UNSPECIFIED 10/06/2019 Roel Bunch R10.2 PELVIC AND PERINEAL PA 10/06/2019 Roel Bunch T14.8 OTHER INJURY OF UNSPECIFIED BODY REGION 10/06/2019 Roel Bunch 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 9 HYPOTHYROIDISM, UNSPECIFIED 10/21/2019 WILLIAMS VELASCO MD Ot E11. 9 TYPE 2 DIABETES MELLITUS WITHOUT COMPLIC 10/21/2019 WILLIAMS VELASCO MD, Ot E66. 01 MORBID (SEVERE) OBESITY DUE TO EXCESS CA 10/21/2019 WILLIAMS VELASCO MD, Ot E78. 5 HYPERLIPIDEMIA, UNSPECIFIED 10/21/2019 WILLIAMS VELASCO MD, Ot I10 ESSENTIAL (PRIMARY) HYPERTENSION 10/21/2019 WILLIAMS VELASCO MD, Ot I35. 1 NONRHEUMATIC AORTIC (VALVE) INSUFFICIENC 10/21/2019 WILLIAMS VELASCO MD, Ot I48. 0 PAROXYSMAL ATRIAL FIBRILLATION 10/21/2019 WILLIAMS VELASCO MD, Ot K21. 9 GASTRO-ESOPHAGEAL REFLUX DISEASE WITHOUT 10/21/2019 WILLIAMS VELASCO MD, Ot R07. 9 CHEST PAIN, UNSPECIFIED 10/21/2019 WILLIAMS VELASCO MD, Ot Z68. 41 BODY MASS INDEX (BMI) 40.0-44.9, ADULT 10/21/2019 WILLIAMS VELASCO MD, Ot Z79. 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 49 FAMILY HX OF ISCHEM HEART DIS AND OTH DI 10/21/2019 WILLIAMS VELASCO MD Ot Z88. 0 ALLERGY STATUS TO PENICILLIN 10/21/2019 WILLIAMS VELASCO MD, Ot Z88. 2 ALLERGY STATUS TO SULFONAMIDES STATUS 10/21/2019 WILLIAMS VELASCO MD Ot Z88. 3 ALLERGY STATUS TO OTHER ANTI-INFECTIVE A 10/21/2019 WILLIAMS VELASCO MD, Ot Z88. 5 ALLERGY STATUS TO NARCOTIC AGENT STATUS 10/21/2019 WILLIAMS VELASCO MD, Ot Z88. 6 ALLERGY STATUS TO ANALGESIC AGENT STATUS 10/21/2019 WILLIAMS VELASCO MD Ot Z88. 8 ALLERGY STATUS TO OTH DRUG/MEDS/BIOL SUB 10/21/2019 WILLIAMS VELASCO MD Ot Z91.040 LATEX ALLERGY STATUS 10/21/2019 WILLIAMS VELASCO MD Ot Z95. 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 Results Test [...] g/dL 6.0-8.3 Thyroid Stimulating Hormone - 06/13/17 1 0:25 TSH 1.07 mIU/mL 0.32-5.00 Microalbumin - 02/15/18 10:00 Microalb 29.0 mg/L 0.0-20.0 Capillary blood glucose measurement by g lucometer (mass/volume) - 04/12/18 10:22 Capillary blood glucose measurement by glucometer (mas s/volume) 102 mg/dL 70-110 Lipid Panel - 03/01/19 10:55 C/HDL 5.9 3.7-6.7 Cholesterol 212 mg/dL 100-240 HDL 36 mg/dL 30-85 LDL-Calculated 135 mg/dL 0-100 Trig 207 mg/dL 35-160 VLDL 41 mg/dL 0-42 EKG - 06/07/19 12:01 EKG Complete Complete blood count (CBC) with automate d white blood cell (WBC) differential - 06/11/19 19:47 Blood leukocytes automated count (number/volume) 6.6 10*3/uL 4.3-11.0 Blood erythrocytes automated count (number/volume) 5.14 10*6/uL 4.35-5.85 Venous blood hemoglobin measurement (mass/volume) 13.8 g/dL 11.5-16.0 Blood hematocrit (volume fraction) 44 % 35-52 Automated erythrocyte mean corpuscular volume 85 [ foz_us] 80-99 Automated erythrocyte mean corpuscular h emoglobin (mass per erythrocyte) 27 pg 25-34 Automated erythrocyte mean corpuscular h emoglobin concentration measurement (mass/volume) 32 g/dL 32-36 Automated erythrocyte distribution width ratio 14. 4 % 10.0- 14.5 Automated blood platelet count (count/volume) 163 10*3/uL 130-400 Automated blood platelet mean volume measurement 10.3 [foz_us] 7.4-10.4 Automated blood neutrophils/100 leukocytes 66 % 42-75 Automated blood lymphocytes/100 leukocytes 20 % 12-44 Blood monocytes/100 leukocytes 10 % 0-12 Automated blood eosinophils/100 leukocytes 3 % 0-10 Automated blood basophils/100 leukocytes 1 % 0-10 Blood neutrophils automated count (number/volume) 4.3 10*3 1.8-7.8 Blood lymphocytes automated count (number/volume) 1.3 10*3 1.0-4.0 Blood monocytes automated count (number/volume) 0. 7 10*3 0.0-1.0 Automated eosinophil count 0.2 10*3/uL 0 .0-0.3 Automated blood basophil count (count/volume) 0.1 10*3/uL 0.0-0.1 PT panel in platelet poor plasma by coag ulation assay - 06/11/19 19:47 Prothrombin time (PT) in platelet poor plasma by coagu lation assay 12.5 s 12.2-14.7 INR in platelet poor plasma or blood by coagulation as say 0.9 0.8-1.4 Activated partial thromboplastin time (a PTT) in platelet poor plasma bycoagulation assay - 06/11/19 19:47 Activated partial thromboplastin time (a PTT) in platelet poor plasma bycoagulation assay 28 s 24-35 Comprehensive metabolic panel - 06/11/19 19:47 Serum or plasma sodium measurement (moles/volume) 141 mmol/L 135-145 Serum or plasma potassium measurement (moles/volume) 4.0 mmol/L 3.6-5.0 Serum or plasma chloride measurement (moles/volume) 105 mmol/L 98-107 Carbon dioxide 23 mmol/L 21-32 Serum or plasma anion gap determination (moles/volume) 13 mmol/L 5-14 Serum or plasma urea nitrogen measurement (mass/volume ) 19 mg/dL 7-18 Serum or plasma creatinine measurement (mass/volume) 0.89 mg/dL 0.60-1.30 Serum or plasma urea nitrogen/creatinine mass ratio 21 NRG Serum or plasma creatinine measurement w ith calculation of estimated glomerular filtration rate > NRG Serum or plasma glucose measurement (mass/volume) 105 mg/dL 70-105 Serum or plasma calcium measurement (mass/volume) 9.9 mg/dL 8.5-10.1 Serum or plasma total bilirubin measurement (mass/volu me) 0.6 mg/dL 0.1-1.0 Serum or plasma alkaline phosphatase jennifer surement (enzymatic activity/volume) 62 U/L 40-136 Serum or plasma aspartate aminotransfera se measurement (enzymatic activity/volume) 15 U/L 5-34 Serum or plasma alanine aminotransferase measurement (enzymatic activity/volume) 16 U/L 0-55 Serum or plasma protein measurement (mass/volume) 6.9 g/dL 6.4-8.2 Serum or plasma albumin measurement (mass/volume) 4.2 g/dL 3.2-4.5 CALCIUM CORRECTED 9.7 mg/dL 8.5-10.1 Magnesium - 06/11/19 19:47 Magnesium 2.2 mg/dL 1.8-2.4 Serum or plasma troponin i.cardiac measu rement (mass/volume) - 06/11/19 19:47 Serum or plasma troponin i.cardiac measurement (mass/v olume) < ng/mL <0.028 Myoglobin, serum - 06/11/19 19:47 Myoglobin, serum 47.6 ng/mL 10.0-92.0 CBC with Auto Diff - 09/18/19 11:35 Baso% 0.60 % 0.00-2.50 Eos 0.3 K/uL 0.0-0.7 Eos% 4.8 % 0.0-7.0 Hct 37.8 % 36.0-46.0 Hgb 11.8 g/dL 13.0-15.0 Lym 1.12 K/uL 0.60-3.40 Lym% 17.8 % 10.0-50.0 MCH 27.5 pg 27.0-31.0 MCHC 31.2 g/dL 32.0-36.0 MCV 88.1 fL 80.0-97.0 [place]% 8.0 % 0.0-12.0 MPV 10.2 fL 7.4-10.0 Luis% 68.8 % 37.0-80.0 Plt 183 K/uL 150-400 RBC 4.29 M/uL 3.60-5.00 RDW 14.5 % 11.6-14.8 WBC 6.28 K/uL 5.00-10.00 Luis 4.32 K/uL 2.00-6.90 [place] 0.5 K/uL 0.0-0.9 Baso 0.0 K/uL 0.0-0.2 BMP - 10/02/19 09:05 Anion Gap 13 6-14 BUN 17 mg/dL 5-25 Calcium 9.6 mg/dL 8.3-10.4 Chloride 106 mmol/L 95-114 CO2 28 mEq/L 22-33 Creat 0.81 mg/dL 0.50-1.50 eGFR 68 mL/min/1.73m2 >59 Glucose 100 mg/dL 70-110 Osmo 297 280-295 Potassium 4.3 mmol/L 3.5-5.3 Sodium 143 mmol/L 134-148 Other Culture - 10/18/19 09:20 PRELIM CULTURE RESULTS Abundant Apparent Normal Fl ora. FINAL CULTURE RESULTS Abundant Apparent Normal Raulito ra. MEDIA PLATED Setup at 14:51 on 10/18/2019 Complete blood count (CBC) with automate d white blood cell (WBC) differential - 10/20/19 23:05 Blood leukocytes automated count (number/volume) 6.9 10*3/uL 4.3-11.0 Blood erythrocytes automated count (number/volume) 4.51 10*6/uL 4.35-5.85 Venous blood hemoglobin measurement (mass/volume) 12.1 g/dL 11.5-16.0 Blood hematocrit (volume fraction) 39 % 35-52 Automated erythrocyte mean corpuscular volume 86 [ foz_us] 80-99 Automated erythrocyte mean corpuscular h emoglobin (mass per erythrocyte) 27 pg 25-34 Automated erythrocyte mean corpuscular h emoglobin concentration measurement (mass/volume) 31 g/dL 32-36 Automated erythrocyte distribution width ratio 15. 6 % 10.0- 14.5 Automated blood platelet count (count/volume) 120 10*3/uL 130-400 Automated blood platelet mean volume measurement 10.1 [foz_us] 7.4-10.4 Automated blood neutrophils/100 leukocytes 69 % 42-75 Automated blood lymphocytes/100 leukocytes 18 % 12-44 Blood monocytes/100 leukocytes 9 % 0-12 Automated blood eosinophils/100 leukocytes 3 % 0-10 Automated blood basophils/100 leukocytes 0 % 0-10 Blood neutrophils automated count (number/volume) 4.8 10*3 1.8-7.8 Blood lymphocytes automated count (number/volume) 1.2 10*3 1.0-4.0 Blood monocytes automated count (number/volume) 0. 6 10*3 0.0-1.0 Automated eosinophil count 0.2 10*3/uL 0 .0-0.3 Automated blood basophil count (count/volume) 0.0 10*3/uL 0.0-0.1 PT panel in platelet poor plasma by coag ulation assay - 10/20/19 23:05 Prothrombin time (PT) in platelet poor plasma by coagu lation assay 21.9 s 12.2-14.7 INR in platelet poor plasma or blood by coagulation as say 1.8 0.8-1.4 Activated partial thromboplastin time (a PTT) in platelet poor plasma bycoagulation assay - 10/20/19 23:05 Activated partial thromboplastin time (a PTT) in platelet poor plasma bycoagulation assay 40 s 24-35 Comprehensive metabolic panel - 10/20/19 23:05 Serum or plasma sodium measurement (moles/volume) 144 mmol/L 135-145 Serum or plasma potassium measurement (moles/volume) 4.2 mmol/L 3.6-5.0 Serum or plasma chloride measurement (moles/volume) 107 mmol/L 98-107 Carbon dioxide 24 mmol/L 21-32 Serum or plasma anion gap determination (moles/volume) 13 mmol/L 5-14 Serum or plasma urea nitrogen measurement (mass/volume ) 17 mg/dL 7-18 Serum or plasma creatinine measurement (mass/volume) 0.86 mg/dL 0.60-1.30 Serum or plasma urea nitrogen/creatinine mass ratio 20 NRG Serum or plasma creatinine measurement w ith calculation of estimated glomerular filtration rate > NRG Serum or plasma glucose measurement (mass/volume) 161 mg/dL 70-105 Serum or plasma calcium measurement (mass/volume) 9.2 mg/dL 8.5-10.1 Serum or plasma total bilirubin measurement (mass/volu me) 0.4 mg/dL 0.1-1.0 Serum or plasma alkaline phosphatase jennifer surement (enzymatic activity/volume) 66 U/L 40-136 Serum or plasma aspartate aminotransfera se measurement (enzymatic activity/volume) 17 U/L 5-34 Serum or plasma alanine aminotransferase measurement (enzymatic activity/volume) 20 U/L 0-55 Serum or plasma protein measurement (mass/volume) 6.5 g/dL 6.4-8.2 Serum or plasma albumin measurement (mass/volume) 4.1 g/dL 3.2-4.5 CALCIUM CORRECTED 9.1 mg/dL 8.5-10.1 Magnesium - 10/20/19 23:05 Magnesium 2.0 mg/dL 1.6-2.4 Myoglobin, serum - 10/20/19 23:05 Myoglobin, serum 38.2 ng/mL 10.0-92.0 Serum or plasma troponin i.cardiac measu rement (mass/volume) - 10/20/19 23:05 Serum or plasma troponin i.cardiac measurement (mass/v olume) < ng/mL <0.028 Serum or plasma troponin i.cardiac measu rement (mass/volume) - 10/21/19 01:52 Serum or plasma troponin i.cardiac measurement (mass/v olume) < ng/mL <0.028 Complete blood count (CBC) with automate d white blood cell (WBC) differential - 10/21/19 07:15 Blood leukocytes automated count (number/volume) 6.6 10*3/uL 4.3-11.0 Blood erythrocytes automated count (number/volume) 4.44 10*6/uL 4.35-5.85 Venous blood hemoglobin measurement (mass/volume) 11.8 g/dL 11.5-16.0 Blood hematocrit (volume fraction) 38 % 35-52 Automated erythrocyte mean corpuscular volume 85 [ foz_us] 80-99 Automated erythrocyte mean corpuscular h emoglobin (mass per erythrocyte) 27 pg 25-34 Automated erythrocyte mean corpuscular h emoglobin concentration measurement (mass/volume) 31 g/dL 32-36 Automated erythrocyte distribution width ratio 15. 8 % 10.0- 14.5 Automated blood platelet count (count/volume) 108 10*3/uL 130-400 Automated blood platelet mean volume measurement 10.4 [foz_us] 7.4-10.4 Automated blood neutrophils/100 leukocytes 72 % 42-75 Automated blood lymphocytes/100 leukocytes 16 % 12-44 Blood monocytes/100 leukocytes 9 % 0-12 Automated blood eosinophils/100 leukocytes 3 % 0-10 Automated blood basophils/100 leukocytes 1 % 0-10 Blood neutrophils automated count (number/volume) 4.8 10*3 1.8-7.8 Blood lymphocytes automated count (number/volume) 1.1 10*3 1.0-4.0 Blood monocytes automated count (number/volume) 0. 6 10*3 0.0-1.0 Automated eosinophil count 0.2 10*3/uL 0 .0-0.3 Automated blood basophil count (count/volume) 0.0 10*3/uL 0.0-0.1 Comprehensive metabolic panel - 10/21/19 07:15 Serum or plasma sodium measurement (moles/volume) 143 mmol/L 135-145 Serum or plasma potassium measurement (moles/volume) 4.3 mmol/L 3.6-5.0 Serum or plasma chloride measurement (moles/volume) 107 mmol/L 98-107 Carbon dioxide 25 mmol/L 21-32 Serum or plasma anion gap determination (moles/volume) 11 mmol/L 5-14 Serum or plasma urea nitrogen measurement (mass/volume ) 18 mg/dL 7-18 Serum or plasma creatinine measurement (mass/volume) 0.80 mg/dL 0.60-1.30 Serum or plasma urea nitrogen/creatinine mass ratio 23 NRG Serum or plasma creatinine measurement w ith calculation of estimated glomerular filtration rate > NRG Serum or plasma glucose measurement (mass/volume) 100 mg/dL 70-105 Serum or plasma calcium measurement (mass/volume) 8.9 mg/dL 8.5-10.1 Serum or plasma total bilirubin measurement (mass/volu me) 0.5 mg/dL 0.1-1.0 Serum or plasma alkaline phosphatase jennifer surement (enzymatic activity/volume) 51 U/L 40-136 Serum or plasma aspartate aminotransfera se measurement (enzymatic activity/volume) 15 U/L 5-34 Serum or plasma alanine aminotransferase measurement (enzymatic activity/volume) 18 U/L 0-55 Serum or plasma protein measurement (mass/volume) 6.0 g/dL 6.4-8.2 Serum or plasma albumin measurement (mass/volume) 3.9 g/dL 3.2-4.5 CALCIUM CORRECTED 9.0 mg/dL 8.5-10.1 Serum or plasma troponin i.cardiac measu rement (mass/volume) - 10/21/19 07:15 Serum or plasma troponin i.cardiac measurement (mass/v olume) < ng/mL <0.028 Encounters ACCT No. Visit Date/Time Discharge Status Pt. Type Provider Facility Loc./Unit Complaint [id number] 10/18/2019 13:05:00 10/18/2019 23:59 :00 DIS Outpatient KM MARINO [id number] 10/18/2019 08:30:00 10/18/2019 23:59 :00 DIS Outpatient KM MARINO [id number] 10/06/2019 18:40:00 10/06/2019 21:00: 00 [id number]/2019 10:16:00 10/02/2019 23:59: 00 DIS Outpatient KM MARINO [id number] 09/18/2019 11:48:00 09/18/2019 23:59: 00 DIS Outpatient KM MARINO [id number] 09/18/2019 10:45:00 09/18/2019 23:59: 00 DIS Outpatient KM MARINO [id number] 09/04/2019 08:00:00 09/04/2019 23:59: 00 DIS Outpatient KM MARINO [id number] 08/24/2019 15:57:00 08/24/2019 23:59: 00 DIS Outpatient Isabel Muñoz [id number] 07/26/2019 09:30:00 07/26/2019 23:59: 00 DIS Outpatient Isabel Muñoz [id number] 06/27/2019 09:30:00 06/27/2019 23:59: 00 DIS Outpatient KM MARINO [id number] 06/07/2019 11:18:00 06/07/2019 23:59: 00 DIS Outpatient KM MARINO [id number] 03/01/2019 11:20:00 03/01/2019 23:59: 00 DIS Outpatient KM MARINO [id number] 08/31/2018 13:12:00 08/31/2018 23:59: 00 DIS Outpatient KM MARINO [id number] 08/31/2018 11:04:00 08/31/2018 23:59: 00 DIS Outpatient KM MARINO [id number] 02/15/2018 13:31:00 02/15/2018 23:59: 00 DIS Outpatient KM MARINO [id number] 10/04/2017 13:36:00 10/04/2017 23:59: 00 DIS Outpatient EDWIN DE LEON [id number] 04/27/2017 00:00:00 06/14/2017 09:45: 00 DIS Outpatient KM MARINO [id number] 06/13/2017 10:50:00 06/13/2017 23:59: 00 DIS Outpatient JAMILA KM [id number] 04/22/2017 10:38:00 04/22/2017 23:59: 00 DIS Outpatient JAMILA KM [id number] 12/17/2016 09:03:00 12/17/2016 23:59: 00 DIS Outpatient JAMILA KM [id number] 12/13/2016 13:53:00 12/13/2016 23:59: 00 DIS Outpatient [place], K[place] [id number] 12/03/2016 10:30:00 12/03/2016 23:59: 00 DIS Outpatient Isabel Muñoz [id number] 10/03/2019 15:13:37 Document Registration [id number] 06/06/2019 14:00:00 Document Registration [id number] 03/01/2019 10:30:00 Document Registration [id number] 01/10/2019 14:30:00 Document Registration [id number] 12/26/2018 11:00:00 Document Registration [id number] 08/31/2018 10:40:00 Document Registration [id number] 07/28/2018 08:40:00 Document Registration [id number] 04/05/2018 13:20:00 Document Registration [id number] 02/23/2018 15:10:00 Document Registration [id number] 02/15/2018 09:30:00 Document Registration [id number] 10/03/2017 09:30:00 Document Registration [id number] 08/31/2017 09:10:00 Document Registration [id number] 11/28/2019 10:23:00 23:59:59 CLS Outpatient MACK PETERSON MD [facility] CR TAVR [id number] 10/20/2019 22:57:00 019 12:41:00 DIS Inpatient ROD CHESTER, WILLIAMS Aguirre [facility] 4TH CHEST PAIN [id number] 06/11/2019 19:28:00 019 21:09:00 DIS Emergency BISI, JOHNNY POULTRY TENDER [facility] ER CP [id number] 04/12/2018 09:41:00 018 13:24:00 DIS Outpatient DEEPA CORDERO MD [facility] SDC SCREENING, HX OF POLYPS , REFLUX [id number] 04/11/2018 15:26:00 018 15:50:00 DIS Outpatient DEEPA CORDERO MD [facility] PREOP COLONOSCOPY/EGD [id number] 09/07/2017 12:25:00 017 23:59:59 CLS Preadmit ZAKIYA PULIDO MD [facility] RAD LUMBAR SPONDYLOSIS W/RA DICULOPATHY [id number] 01/03/2016 07:48:00 016 09:23:00 DIS Emergency HOSSEIN CHESTER, RACHEL Beltran [facility] ER DIZZINESS,NAUSEA [id number] 10/10/2015 21:05:00 015 05:52:00 DIS Outpatient JAMILA CHESTER, KM Marx [facility] SLEEP CRESENCIO,SNORING,CHOKING,HT N, [id number] 02/10/2015 07:46:00 015 14:22:00 DIS Emergency LEANDRA CHESTER, BRIANA Schaefer [facility] ER NECK/UPPER BACK /JAW PAIN [id number] 01/29/2014 09:46:00 014 23:59:59 CLS Outpatient HUMPHREY CHESTER, KIRA Scherer [facility] CARD CAD,CP,DYSPNEA
--- OUTSIDE RECORDS SUMMARY | 2019-12-11 10:43 | XMS REPORT ---
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 [id number] [address] [place] [phone] May, [place] [address] [id number] [address] [place] [phone] May, [facility] [address] [id number] [address] [place] [phone] Apr, [place] [address] [id number] [address] [place] [phone] Apr, Major depressive disorder, r ecurrent episode, unspecified F33.9 and Generalized anxiety disorder F41.1 [place] [address] [id number] [address] [place] [phone] March, Major depressive disorder, r ecurrent episode, unspecified F33.9 and Generalized anxiety disorder F41.1 [place] [address] [id number] [address] [place] [phone] March, Major depressive disorder, r ecurrent episode, unspecified F33.9 and Generalized anxiety disorder F41.1 [place] [address] [id number] [address] [place] [phone] March, Major depressive disorder, r ecurrent episode, unspecified F33.9 and Generalized anxiety disorder F41.1 [place] [address] [id number] [address] [place] [phone] Feb, Major depressive disorder, r ecurrent episode, unspecified F33.9 and Generalized anxiety disorder F41.1 [place] [address] [facility] [id number] [address] [place] [phone] Feb, Major depressive disorder, r ecurrent episode, unspecified F33.9 and Generalized anxiety disorder F41.1 [place] [address] [id number] [address] [place] [phone] Feb, Major depressive disorder, r ecurrent episode, unspecified F33.9 and Generalized anxiety disorder F41.1 [place] [address] [facility] [id number] [address] [place] [phone] Jan, Major depressive disorder, r ecurrent episode, unspecified F33.9 and Generalized anxiety disorder F41.1 [place] [address] [facility] [id number] [address] [place] [phone] Jan, Major depressive disorder, r ecurrent episode, unspecified F33.9 and Generalized anxiety disorder F41.1 [place] [address] [facility] [id number] [address] [place] [phone] Dec, Major depressive disorder, r ecurrent episode, unspecified F33.9 and Generalized anxiety disorder F41.1 [place] [address] [facility] [id number] [address] [place] [phone] Dec, Major depressive disorder, r ecurrent episode, unspecified F33.9 and Generalized anxiety disorder F41.1 [place] [address] [facility] [id number] [address] [place] [phone] Nov, Major depressive disorder, r ecurrent episode, unspecified F33.9 and Generalized anxiety disorder F41.1 [place] [address] [facility] [id number] [address] [place] [phone] Jun, Generalized anxiety disorder F41.1 and Major depressive disorder, recurrent episode, moderate F33.1 [facility] [address] [id number] [address] [place] [phone] Jun, Generalized anxiety disorder F41.1 and Major depressive disorder, recurrent episode, moderate F33.1 [facility] [address] [id number] [address] [place] [phone] May, Generalized anxiety disorder F41.1 and Major depressive disorder, recurrent episode, moderate F33.1 [facility] [address] [id number] [address] [place] [phone] Apr, Generalized anxiety disorder F41.1 and Major depressive disorder, recurrent episode, moderate F33.1 [facility] [address] [id number] [address] [place] [phone] Apr, Generalized anxiety disorder F41.1 and Major depressive disorder, recurrent episode, moderate F33.1 [facility] [address] [id number] [address] [place] [phone] Apr, Generalized anxiety disorder F41.1 and Major depressive disorder, recurrent episode, moderate F33.1 [facility] [address] [id number] [address] [place] [phone] March, Generalized anxiety disorder F41.1 and Major depressive disorder, recurrent episode, moderate F33.1 [facility] [address] [id number] [address] [place] [phone] March, Generalized anxiety disorder F41.1 and Major depressive disorder, recurrent episode, moderate F33.1 [facility] [address] [id number] [address] [place] [phone] Feb, Generalized anxiety disorder F41.1 and Major depressive disorder, recurrent episode, moderate F33.1 [facility] [address] [id number] [address] [place] [phone] Jan, Generalized anxiety disorder F41.1 and Major depressive disorder, recurrent episode, moderate F33.1 IMMUNIZATIONS No Known Immunizations SOCIAL HISTORY Never Assessed REASON FOR VISIT BH intake, Depression and anxiety. PLAN OF CARE Activity Details Follow Up next available Reason:depres subhash and anxiety VITAL SIGNS MEDICATIONS Medication Instructions Dosage Frequency Start Date End Date Duration S tatus Hyoscyamine Active BusPIRone HCl Active Albuterol Active Xiidra Active Gaviscon Active Singulair Active Protonix Active Lisinopril Active Lomotil Active Levothyroxine Sodium Act trung Sucralfate Active Advair HFA Active Glimepiride Active Acyclovir Active RESULTS No Results PROCEDURES Procedure Date Ordered Result Body Site [facility] VISIT MENTAL HEALTH ESTAB PT Nov 24, 2017 Psych diagnostic evaluation, established patient Nov 24, 2017 INSTRUCTIONS MEDICATIONS ADMINISTERED No Known Medications
== END 2019-10-21 12:41 | disposition home or self-care (01) ==
LOC: EDUNIT# 22:55 → ER 22:56 → 4TH 22:57 → UNDOADMOB 10-21 04:06 → UNDODISOB 10-21 12:41
PROVIDERS: ADMIT Family Medicine; ATTEND Family Medicine
DX: R07.9 Chest pain, unspecified (principal); I10 Essential (primary) hypertension; E11.9 Type 2 diabetes mellitus without complications; K21.9 Gastro-esophageal reflux disease without esophagitis; E03.9 Hypothyroidism, unspecified; I48.0 Paroxysmal atrial fibrillation; I35.1 Nonrheumatic aortic (valve) insufficiency; E78.5 Hyperlipidemia, unspecified; Z95.2 Presence of prosthetic heart valve; E66.01 Morbid (severe) obesity due to excess calories; Z68.41 Body mass index [BMI] 40.0-44.9, adult; Z88.3 Allergy status to other anti-infective agents; Z88.8 Allergy status to other drugs, medicaments and biological substances; Z88.2 Allergy status to sulfonamides; Z88.0 Allergy status to penicillin; Z88.6 Allergy status to analgesic agent; Z88.5 Allergy status to narcotic agent; Z91.040 Latex allergy status; Z79.02 Long term (current) use of antithrombotics/antiplatelets; Z79.84 Long term (current) use of oral hypoglycemic drugs; Z82.49 Family history of ischemic heart disease and other diseases of the circulatory system
CPT/HCPCS: 36415; 71045; 80053; 83735; 83874; 84484; 85025; 85610; 85730; 93005; 93041; 96374; 96375

== ENCOUNTER → 2019-12-06 | Outpatient (CLI) | payer MEDICARE, OTHER ==
[~2019-12-06] MED LIST changes: +AMIO200T4 PO; +AMLO2.5T2 PO; +BUDE0.5A IH; +BUDE10.2 IH; +GLIM4TAB3 PO; +HYOS-6 PO; +ISOS30TA3 PO; +LOPE-175 PO; +MAGN1TAB31 PO; +NITR0.4T39 SL; +RIVA15TA PO; +SIME80TA16 PO
[2019-12-07 16:19] LABS: BASOPHILS % (AUTO) 0 % (0-10); EOSINOPHILS % (AUTO) 3 % (0-10); HEMATOCRIT 40 % (35-52); HEMOGLOBIN 12.3 G/DL (11.5-16.0); LYMPHOCYTES % (AUTO) 16 % (12-44); MEAN CORPUSCULAR HEMOGLOBIN 27 PG (25-34); MEAN CORPUSCULAR HGB CONC 31 G/DL (32-36); MEAN CORPUSCULAR VOLUME 88 FL (80-99); MEAN PLATELET VOLUME 11.3 FL (7.4-10.4); MONOCYTES % (AUTO) 9 % (0-12); NEUTROPHILS % (AUTO) 72 % (42-75); PLATELET COUNT 124 10^3/uL (130-400); RED CELL DISTRIBUTION WIDTH 14.7 % (10.0-14.5)
[2019-12-07 16:20] LABS: ABSOLUTE RETIC # 67 10e9/L (24-90); EOSINOPHILS # (AUTO) 0.2 10^3/uL (0.0-0.3); LYMPHOCYTES # (AUTO) 1.1 X 10^3 (1.0-4.0); MONOCYTES # (AUTO) 0.6 X 10^3 (0.0-1.0); RETICULOCYTE % 1.39 % (0.50-2.40)
[2019-12-07 16:22] LABS: BAND NEUTROPHILS 0 %; BASOPHILS % (MANUAL) 2 %; EOSINOPHILS % (MANUAL) 4 %; LYMPHOCYTES % (MANUAL) 18 %; MONOCYTES % (MANUAL) 7 %; NEUTROPHILS % (MANUAL) 69 %; RBC MORPH NORMAL
== END ==
LOC: GIR 18:03
PROVIDERS: ATTEND Family Medicine
DX: Z01.89 Encounter for other specified special examinations (principal)
CPT/HCPCS: 85007; 85027; 85045

== ENCOUNTER 2019-12-17 10:26 | Outpatient (RCR) | payer MEDICARE, OTHER | END 2019-12-20 | disposition home or self-care (01) | LOC: CR 10:26 | PROVIDERS: ATTEND Internal Medicine Cardiovascular Disease | DX: Z95.4 Presence of other heart-valve replacement (principal) | CPT/HCPCS: 93798 ==

== ENCOUNTER 2020-01-25 10:15 | Outpatient (RCR) | payer MEDICARE, OTHER ==
[~2020-01-25 10:15] MED LIST changes: -GLIM2TAB2 PO; +GLIM2TAB4 PO; -GLIM4TAB3 PO; +GLIM4TAB5 PO; -MONT10TA24 PO; +MONT10TA26 PO
== END 2020-03-20 | disposition home or self-care (01) ==
LOC: CR 10:15
PROVIDERS: ATTEND Internal Medicine Cardiovascular Disease
DX: Z95.4 Presence of other heart-valve replacement (principal)
CPT/HCPCS: 93798

== ENCOUNTER 2020-05-13 13:51 | Outpatient (RCR) | payer MEDICARE, OTHER ==
[~2020-05-13 13:51] MED LIST changes: -PANT40TA3 PO; +PANT40TA52 PO
[2020-05-13 14:24] LABS: BASOPHILS % (AUTO) 1 % (0-10); EOSINOPHILS # (AUTO) 0.2 10^3/uL (0.0-0.3); EOSINOPHILS % (AUTO) 2 % (0-10); HEMATOCRIT 43 % (35-52); HEMOGLOBIN 13.3 G/DL (11.5-16.0); LYMPHOCYTES # (AUTO) 1.2 X 10^3 (1.0-4.0); LYMPHOCYTES % (AUTO) 18 % (12-44); MEAN CORPUSCULAR HEMOGLOBIN 28 PG (25-34); MEAN CORPUSCULAR HGB CONC 31 G/DL (32-36); MEAN CORPUSCULAR VOLUME 88 FL (80-99); MEAN PLATELET VOLUME 9.8 FL (7.4-10.4); MONOCYTES # (AUTO) 0.5 X 10^3 (0.0-1.0); MONOCYTES % (AUTO) 7 % (0-12); NEUTROPHILS % (AUTO) 72 % (42-75); PLATELET COUNT 125 10^3/uL (130-400)
[2020-05-13 14:43] LABS: ALANINE AMINOTRANSFERASE 17 U/L (0-55); ALBUMIN 4.1 GM/DL (3.2-4.5); ALKALINE PHOSPHATASE 54 U/L (40-136); BILIRUBIN,TOTAL 0.5 MG/DL (0.1-1.0); BUN/CREATININE RATIO 18; CALCIUM 9.7 MG/DL (8.5-10.1); CARBON DIOXIDE 29 MMOL/L (21-32); CHLORIDE 103 MMOL/L (98-107); GFR ESTIMATED > 60; GLUCOSE 162 MG/DL (70-105); POTASSIUM 4.7 MMOL/L (3.6-5.0); SODIUM 140 MMOL/L (135-145); TOTAL PROTEIN 6.7 GM/DL (6.4-8.2)
[2020-05-23] MEDS ORDERED: MAGN1TAB31 PO (18:49)
[2020-05-23] MEDS ORDERED: HYDR-3923 PO (18:49)
[2020-05-23] MEDS ORDERED: LOPE-175 PO (18:49)
== END 2020-08-11 | disposition home or self-care (01) ==
LOC: ONC 13:51
PROVIDERS: ATTEND Internal Medicine Hematology & Oncology
DX: D69.49 Other primary thrombocytopenia (principal); E66.01 Morbid (severe) obesity due to excess calories; I51.9 Heart disease, unspecified; E78.5 Hyperlipidemia, unspecified; Z90.710 Acquired absence of both cervix and uterus; Z90.49 Acquired absence of other specified parts of digestive tract
CPT/HCPCS: 80053; 85025; G0463; 99214

== ENCOUNTER 2020-05-23 18:12 | Emergency (ER) | payer MEDICARE, OTHER ==
[~2020-05-23] VITALS: Ht 157 cm; Wt 111.0 kg
[~2020-05-23 18:12] MED LIST changes: +PANT40TA3 PO; -PANT40TA52 PO
[2020-05-23] MEDS ORDERED: MAGN1TAB31 PO (18:49)
[2020-05-23] MEDS ORDERED: HYDR-3923 PO (18:49)
[2020-05-23] MEDS ORDERED: LOPE-175 PO (18:49)
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
[2020-05-23 19:24] LABS: BASOPHILS % (AUTO) 0 % (0-10); EOSINOPHILS # (AUTO) 0.2 10^3/uL (0.0-0.3); EOSINOPHILS % (AUTO) 2 % (0-10); HEMATOCRIT 44 % (35-52); HEMOGLOBIN 14.1 G/DL (11.5-16.0); LYMPHOCYTES # (AUTO) 1.5 X 10^3 (1.0-4.0); LYMPHOCYTES % (AUTO) 17 % (12-44); MEAN CORPUSCULAR HEMOGLOBIN 28 PG (25-34); MEAN CORPUSCULAR HGB CONC 32 G/DL (32-36); MEAN CORPUSCULAR VOLUME 87 FL (80-99); MEAN PLATELET VOLUME 9.6 FL (7.4-10.4); MONOCYTES # (AUTO) 0.7 X 10^3 (0.0-1.0); MONOCYTES % (AUTO) 8 % (0-12); NEUTROPHILS # (AUTO) 6.4 X 10^3 (1.8-7.8); NEUTROPHILS % (AUTO) 72 % (42-75); PLATELET COUNT 136 10^3/uL (130-400); RED CELL DISTRIBUTION WIDTH 15.2 % (10.0-14.5); WHITE BLOOD COUNT 8.8 10^3/uL (4.3-11.0)
--- NOTE | 2020-05-23 19:33 | Diagnostic Imaging Report ---
PROCEDURE: CT head without contrast. TECHNIQUE: Multiple contiguous axial images were obtained through the brain without the use of intravenous contrast. Auto Exposure Controls were utilized during the CT exam to meet ALARA standards for radiation dose reduction. INDICATION: Dizziness and visual problems with headache. COMPARISON: Prior examination from 01/03/2016. FINDINGS: There is prominence of the ventricles and sulci. There is no hydrocephalus or cerebral edema. There is no midline shift or mass-effect. There is no intracranial mass, hemorrhage, or extra-axial fluid collection. There is some diffuse decreased attenuation of the periventricular white matter which is nonspecific. The visualized paranasal sinuses and mastoid air cells are clear. There are no regional areas of decreased attenuation appreciated to suggest an acute CVA. IMPRESSION: 1. No acute intracranial process. 2. Age-appropriate atrophy. 3. Decreased attenuation of the periventricular white matter which is nonspecific, however, likely reflects senescent change and/or chronic small vessel ischemic disease. Dictated by: Dictated on workstation # [id number]
[2020-05-23 19:34] LABS: INR 0.9 (0.8-1.4); PROTHROMBIN TIME PATIENT 12.6 SEC (12.2-14.7)
[2020-05-23 19:43] LABS: ALANINE AMINOTRANSFERASE 19 U/L (0-55); ALBUMIN 4.4 GM/DL (3.2-4.5); ALKALINE PHOSPHATASE 54 U/L (40-136); BILIRUBIN,TOTAL 0.4 MG/DL (0.1-1.0); BUN/CREATININE RATIO 26; CALCIUM 9.9 MG/DL (8.5-10.1); CARBON DIOXIDE 23 MMOL/L (21-32); CHLORIDE 105 MMOL/L (98-107); CREATININE SERUM 0.85 MG/DL (0.60-1.30); GFR ESTIMATED > 60; GLUCOSE 71 MG/DL (70-105); POTASSIUM 4.9 MMOL/L (3.6-5.0); SODIUM 141 MMOL/L (135-145); TOTAL PROTEIN 7.5 GM/DL (6.4-8.2)
[2020-05-23 20:48] LABS: BILIRUBIN,URINE NEGATIVE (NEGATIVE); CLARITY,URINE CLEAR; COLOR,URINE YELLOW; GLUCOSE, URINE (UA) 1+ (NEGATIVE); KETONES,URINE NEGATIVE (NEGATIVE); LEUKOCYTE ESTERASE ,URINE 1+ (NEGATIVE); NITRITE,URINE NEGATIVE (NEGATIVE); PH,URINE 5.5 (5-9); PROTEIN,URINE NEGATIVE (NEGATIVE)
--- OUTSIDE RECORDS SUMMARY | 2020-05-23 20:55 | XMS REPORT | Encounter Summary ---
Author Author [facility] Organization [facility] Address Unknown Phone Unavailable Care Team Providers Care Supervisor Ski Production Name Role Phone PCP Unavailable Encounter Details Care Team Description Date Type Department 01/12/2013 [facility] OP INFUSION Encounter [address] [place] [phone] Social History Date Tobacco Use Types Packs/Day [...]
--- OUTSIDE RECORDS SUMMARY | 2020-05-23 20:55 | XMS REPORT | Clinical Summary ---
Author Organization Unknown Address Unknown Phone Unavailable Care Team Providers Care Drophammer Operator Name Role Phone PP Unavailable Allergies Comments Active Allergy Reactions Severity Noted Date Pt states gets blisters. Adhesive Other (see 11/24/2012 comments) Ampicillin Hives 11/24/2012 Pt states previous exp with this anestetic (sodium brevitol) for dental issues. Experienced swelling and hives. Anesthetics - [place] Type- Swelling 11/24/2012 Parabens Cephalexin Hives 11/24/2012 Codeine Hives 11/24/2012 Erythromycin Hives 11/24/2012 Ethylsuccinate Hexachlorophene Hives 11/24/2012 Sulfa (Sulfonamide Hives 11/24/2012 Antibiotics) Medications Not on file Active Problems Not on file Social History Date Tobacco Use Types Packs/Day Years Used Never Assessed Sex Assigned at Date Recorded Not on file Industry Job Start Date Occupation Not on file Not on file Not on file Travel End Travel History Travel Start No recent travel history available. Plan of Treatment Not on file Results Not on filefrom Last 3 Months
--- OUTSIDE RECORDS SUMMARY | 2020-05-23 20:55 | XMS REPORT | Clinical Summary ---
Author Author [facility] Address Unknown Phone Unavailable Care Team Providers Care Engraver Letter Name Role Phone Unverified, Unverified Md PCP Unavailable Ayse Yoo DO Unavailable Source Comments Some departments are not documenting in the electronic medical record. If you d o not see the information that you expected, contact Release of Information in [facility] [employer] Information Management department at [phone] for further assistan ce in locating additional records.[facility] Allergies Comments Active Allergy Reactions Severity [...] Comments Vital Sign 124/64 11/29/2012 1:28 PM PIER WORKER Blood Pressure 87 11/29/2012 1:28 PM PIER WORKER Pulse 36.7 C (98 F) 11/29/2012 1:28 PM PIER WORKER Temperature 18 11/29/2012 1:28 PM PIER WORKER Respiratory Rate 96% 11/29/2012 1:28 PM PIER WORKER RA Oxygen Saturation - - Inhaled Oxygen Concentration 117.5 kg (259 lb) 11/29/2012 1:28 PM PIER WORKER Weight 154.9 cm (5' 1") 11/29/2012 1:28 PM PIER WORKER Height 48.94 11/29/2012 1:28 PM PIER WORKER Body Mass Index Plan of Treatment Health Maintenance Due Date Last Done Comments DTAP/TDAP VACCINES (1 - 01/29/1960 Tdap) HEPATITIS C SCREENING 01/29/1960 PHYSICAL (COMPREHENSIVE) 01/29/1960 EXAM SHINGLES RECOMBINANT 01/29/1992 VACCINE (1 of 2) OSTEOPOROSIS 2007 SCREENING/MONITORING PNEUMONIA (PPSV23) 2007 VACCINE (1 of 1 - PPSV23) INFLUENZA VACCINE 08/14/2020 Results Not on filefrom Last 3 Months
--- OUTSIDE RECORDS SUMMARY | 2020-05-23 20:55 | XMS REPORT | Encounter Summary ---
Author Author [facility] Organization [facility] Address Unknown Phone Unavailable Care Team Providers Care Photographer Apprentice Name Role Phone PCP Unavailable Encounter Details Care Team Description Date Type Department 01/26/2013 [facility] OP INFUSION Encounter [address] [place] [phone] Social History Date Tobacco Use Types [...]
--- OUTSIDE RECORDS SUMMARY | 2020-05-23 20:56 | XMS REPORT | Encounter Summary ---
Author Author [facility] Organization [facility] Address Unknown Phone Unavailable Care Team Providers Care Artist Relationship Manager Name Role Phone PCP Unavailable Encounter Details Care Team Description Date Type Department 11/24/2012 [facility] OP INFUSION Encounter [address] [place] [phone] Social History Date Tobacco Use Types [...]
--- OUTSIDE RECORDS SUMMARY | 2020-05-23 20:56 | XMS REPORT | Encounter Summary ---
Author Author [facility] Organization [facility] Address Unknown Phone Unavailable Care Team Providers Care Matlab Developer Name Role Phone PCP Unavailable Encounter Details Care Team Description Date Type Department 12/22/2012 [facility] OP INFUSION Encounter [address] [place] [phone] Social History Date Tobacco Use Types [...]
--- OUTSIDE RECORDS SUMMARY | 2020-05-23 20:56 | XMS REPORT | Encounter Summary ---
Author Author [facility] Organization [facility] Address Unknown Phone Unavailable Care Team Providers Care Investment Fund Manager Name Role Phone PCP Unavailable Encounter Details Care Team Description Date Type Department 12/08/2012 [facility] OP INFUSION Encounter [address] [place] [phone] Social History Date Tobacco Use Types [...]
--- OUTSIDE RECORDS SUMMARY | 2020-05-23 20:57 | XMS REPORT | Continuity of Care Document ---
Author Organization Unknown Address Unknown Phone Unavailable Allergies Active Description Code Type Severity Reaction Onset Reported/Identified Relationship to Patient Clinical Status Yes ASPIRIN, BUFFERED MILD MILD Yes CODEINE SULFATE U NKNOWN UNKNOWN Yes GABAPENTIN MODERATE MODERATE Yes HEXACHLOROPHENE ANALOGUES UNKNOWN UNKNOWN Yes KEFLEX UNKNOWN UNKNOWN Yes PENICILLINS UNKNOWN UNKNOWN Yes BDDPKBC-EEO-GLV REDUCTASE INHIBITORS UNKNOWN OTHER Yes EXAMPDE-EQM-JOM REDUCTASE INHIBITORS UNKNOWN UNKNOWN Yes SULFA (SULFONAMIDE ANTIBIOTICS) UNKNOWN UNKNOWN Yes ampicillin [id number] Drug Allerg y Unknown N/A 02/10/2015 Yes aspirin [id number] Drug Allergy Unknown N/A 02/10/[id number] ug Allergy Unknown N/A 02/10/2015 Yes codeine [id number] Drug Allergy Unknown N/A 02/10/2015 Yes duloxetine [id number] Drug Allerg y Unknown N/A 02/10/2015 Yes erythromycin base [id number] Drug Allergy Unknown N/A 02/10/2015 Yes ezetimibe [id number] Drug Allergy Unknown N/A 02/10/2015 Yes Iodinated Contrast Media [id number] Drug Allergy Unknown N/A 02/10/2015 Yes Iodinated Contrast Media - IV Dye [id number] Drug Allergy Unknown N/A 015 Yes Iodinated Contrast- Oral and IV Dye [id number] Drug Allergy Unknown N/A 02/10/2015 Yes latex [id number] Drug Allergy Unknown N/A 02/10/2015 Yes methohexital [id number] Drug Allergy Unknown N/A 02/10/2015 Yes nickel [id number] Drug Allergy Unknown N/A 02/10/2015 Yes simvastatin [id number] Drug Aller gy Unknown N/A 02/10/2015 Yes Sulfa (Sulfonamide Antibiotics) [id number] Drug Allergy Unknown N/A 015 Medications There is no data. Problems Date Dx Coded Attending Type Code Diagnosis Diagnosed By 02/10/2015 KIRA YIN MD Ot 414.00 02/10/2015 KIRA YIN MD Ot 424.1 02/10/2015 KIRA YIN MD Ot 786.09 02/10/2015 KIRA YIN MD Ot 786.50 02/10/2015 BRIANA MOBLEY MD Ot 414.01 CORONARY ATHEROSCLEROSIS OF [place] CORON 02/10/2015 BRIANA MOBLEY MD Ot 723.0 [...] MD, Ot I25.10 ATHSCL HEART DISEASE OF [place] CORONARY 04/12/2018 DEEPA CORDERO MD, Ot J45.90 [...] NE 04/12/2018 DEEPA CORDERO MD Ot Z79.84 [facility] (CURRENT) USE OF ORAL HYPOGLYC 04/12/2018 DEEPA CORDERO MD, Ot Z79.89 9 OTHER NURSING HOME AIDE (CURRENT) DRUG THERAPY 04/12/2018 DEEPA CORDERO MD, [...] MD, Ot I25.10 ATHSCL HEART DISEASE OF [place] CORONARY 04/13/2018 DEEPA CORDERO MD, Ot J45.90 [...] NE 04/13/2018 DEEPA CORDERO MD, Ot Z79.84 [facility] (CURRENT) USE OF ORAL HYPOGLYC 04/13/2018 DEEPA CORDERO MD, Ot Z79.89 9 OTHER NURSING HOME AIDE (CURRENT) DRUG THERAPY 04/13/2018 DEEPA CORDERO MD, [...] MARINO I10 ESSENTIAL (PRIMARY) HYPERTENSION 08/31/2018 JAMILA KM W V70.0 ROUTINE GENERAL MEDICAL EXAMINATION [...] ACUT E BRONCHITIS, UNSPECIFIED 01/10/2019 W 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.1 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 MARICRUZ OBSTRUCTIVE PULMONARY DISEASE WITH (ACUTE) EXACERBATION [...] MATHEWSP Ot I25.10 ATHSCL HEART DISEASE OF [place] CORONARY 06/11/2019 JOHNNY MATHEWSP Ot J45.909 UNSPECIFIED ASTHMA, UNCOMPLICATED 06/11/2019 JOHNYN MATHEWSP Ot K21.9 GASTRO-ESOPHAGEAL REFLUX DISEASE WITHOUT 06/11/2019 JOHNNY MATHEWS GENERAL LABOR FORKLIFT OPERATOR Ot K58.9 IRRITABLE BOWEL SYNDROME WITHOUT DIARRHE 06/11/2019 JOHNNY MATHEWS GENERAL LABOR FORKLIFT OPERATOR Ot R07.89 OTHER CHEST PAIN 06/11/2019 JOHNNY [...] JOHNNY MATHEWSP Ot Z88.8 ALLERGY STATUS TO [facility] DRUG/MEDS/BIOL SUB 06/11/2019 JOHNNY MATHEWS GENERAL LABOR FORKLIFT OPERATOR Ot Z90.49 ACQUIRED ABSENCE OF OTHER SPECIFIED PART 06/11/2019 JOHNNY MATHEWSP Ot Z90.710 ACQUIRED ABSENCE OF BOTH CERVIX AND UTER 06/11/2019 JOHNNY MATHEWS GENERAL LABOR FORKLIFT OPERATOR Ot Z90.89 ACQUIRED ABSENCE OF OTHER ORGANS 06/11/2019 JOHNNY MATHEWSP Ot Z91.040 LATEX ALLERGY STATUS 06/11/2019 JOHNNY MATHEWSP Ot Z91.041 RADIOGRAPHIC DYE ALLERGY STATUS 06/11/2019 JOHNNY MATHEWS GENERAL LABOR FORKLIFT OPERATOR Ot Z95.9 PRESENCE OF CARDIAC AND VASCULAR IMPLANT 06/14/2019 BISI, JOHNNY GENERAL LABOR FORKLIFT OPERATOR Ot E11.9 TYPE 2 DIABETES MELLITUS WITHOUT COMPLIC 06/14/2019 BISIJOHNNY Matthews GENERAL LABOR FORKLIFT OPERATOR Ot G47.30 SLEEP APNEA, UNSPECIFIED 06/14/2019 BISI, JOHNNY GENERAL LABOR FORKLIFT OPERATOR Ot I10 ESSENTIAL (PRIMARY) HYPERTENSION 06/14/2019 BISIJOHNNY Matthews GENERAL LABOR FORKLIFT OPERATOR Ot I25.10 ATHSCL HEART DISEASE OF [place] CORONARY 06/14/2019 BISIJOHNNY MatthewsP Ot J45.909 UNSPECIFIED ASTHMA, UNCOMPLICATED 06/14/2019 BISI, JOHNNY GENERAL LABOR FORKLIFT OPERATOR Ot K21.9 GASTRO-ESOPHAGEAL REFLUX DISEASE WITHOUT 06/14/2019 BISI, JOHNNY GENERAL LABOR FORKLIFT OPERATOR Ot K58.9 IRRITABLE BOWEL SYNDROME WITHOUT DIARRHE 06/14/2019 BISIJOHNNY Matthews GENERAL LABOR FORKLIFT OPERATOR Ot R07.89 OTHER CHEST PAIN 06/14/2019 BISI, JOHNNY GENERAL LABOR FORKLIFT OPERATOR Ot Z82.49 FAMILY HX OF ISCHEM HEART DIS AND OTH DI 06/14/2019 BISIJOHNNY MatthewsP Ot Z87.820 PERSONAL HISTORY OF TRAUMATIC BRAIN INJU 06/14/2019 BISIJOHNNY Matthews GENERAL LABOR FORKLIFT OPERATOR Ot Z88.1 ALLERGY STATUS TO OTHER ANTIBIOTIC AGENT 06/14/2019 BISI, JOHNNY GENERAL LABOR FORKLIFT OPERATOR Ot Z88.2 ALLERGY STATUS TO SULFONAMIDES STATUS 06/14/2019 BISI, JOHNNY GENERAL LABOR FORKLIFT OPERATOR Ot Z88.5 ALLERGY STATUS TO NARCOTIC AGENT STATUS 06/14/2019 BISI, JOHNNY GENERAL LABOR FORKLIFT OPERATOR Ot Z88.6 ALLERGY STATUS TO ANALGESIC AGENT STATUS 06/14/2019 BISI, JOHNNY GENERAL LABOR FORKLIFT OPERATOR Ot Z88.8 ALLERGY STATUS TO OT DRUG/MEDS/BIOL SUB 06/14/2019 BISI, JOHNNY GENERAL LABOR FORKLIFT OPERATOR Ot Z90.49 ACQUIRED ABSENCE OF OTHER SPECIFIED PART 06/14/2019 BISI, JOHNNY GENERAL LABOR FORKLIFT OPERATOR Ot Z90.710 ACQUIRED ABSENCE OF BOTH CERVIX AND UTER 06/14/2019 BISI, JOHNNY GENERAL LABOR FORKLIFT OPERATOR Ot Z90.89 ACQUIRED ABSENCE OF OTHER ORGANS 06/14/2019 BISIJOHNNY Matthews GENERAL LABOR FORKLIFT OPERATOR Ot Z91.040 LATEX ALLERGY STATUS 06/14/2019 BISI, JOHNNY GENERAL LABOR FORKLIFT OPERATOR Ot Z91.041 RADIOGRAPHIC DYE ALLERGY STATUS 06/14/2019 BISI, JOHNNY GENERAL LABOR FORKLIFT OPERATOR Ot Z95.9 PRESENCE OF CARDIAC AND VASCULAR [...] 10/21/2019 WILLIAMS VELASCO MD, Ot Z79. 02 NURSING HOME AIDE (CURRENT) USE OF ANTITHROMBOTI 10/21/2019 WILLIAMS VELASCO MD, Ot Z79. 84 NURSING HOME AIDE (CURRENT) USE OF ORAL HYPOGLYC 10/21/2019 WILLIAMS VELASCO MD, Ot Z82. 49 FAMILY HX OF ISCHE[place] HEART DIS AND OTH DI 10/21/2019 WILLIAMS VELASCO MD Ot Z88. 0 ALLERGY STATUS TO PENICILLIN 10/21/2019 WILLIAMS VELASCO MD Ot Z88. 2 ALLERGY STATUS TO SULFONAMIDES STATUS 10/21/2019 WILLIAMS VELASCO MD Ot Z88. 3 ALLERGY STATUS TO OTHER ANTI-INFECTIVE A 10/21/2019 WILLIAMS VELASCO MD Ot Z88. 5 ALLERGY STATUS TO NARCOTIC AGENT STATUS 10/21/2019 WILLIAMS VELASCO MD Ot Z88. 6 ALLERGY STATUS TO ANALGESIC AGENT STATUS 10/21/2019 WILLIAMS VELASCO MD Ot Z88. 8 ALLERGY STATUS TO OTH DRUG/MEDS/BIOL SUB 10/21/2019 WILLIAMS VELASCO MD Ot Z91.040 LATEX ALLERGY STATUS 10/21/2019 WILLIAMS VELASCO MD Ot Z95. 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 49 OTHER PRIMARY THROMBOCYTOPENIA 05/20/2020 BERNA KIM MD Ot E66. 01 MORBID (SEVERE) OBESITY DUE TO EXCESS CA 05/20/2020 BERNA KIM MD, Ot E78. 5 HYPERLIPIDEMIA, UNSPECIFIED 05/20/2020 BERNA KIM MD, Ot I51. 9 HEART DISEASE, UNSPECIFIED 05/20/2020 BERNA KIM MD, Ot Z90. 49 ACQUIRED ABSENCE OF OTHER SPECIFIED PART 05/20/2020 BERNA KIM MD, Ot Z90.710 ACQUIRED ABSENCE OF BOTH CERVIX AND UTER Procedures There is no data. Results Test [...] by glucometer (mas s/volume) 102 mg/dL 70-110 Thyroid Stimulating Hormone - 08/31/18 1 0:40 TSH 1.25 mIU/mL 0.32-5.00 Lipid Panel - 03/01/19 10:55 C/HDL 5.9 [...] 31.2 g/dL 32.0-36.0 MCV 88.1 fL 80.0-97.0 [place]% 8.0 % 0.0-12.0 MPV 10.2 fL 7.4-10.0 Luis% 68.8 % 37.0-80.0 Plt 183 K/uL 150-400 RBC 4.29 M/uL 3.60-5.00 RDW 14.5 % 11.6-14.8 WBC 6.28 K/uL 5.00-10.00 Luis 4.32 K/uL 2.00-6.90 [place] 0.5 K/uL 0.0-0.9 Baso 0.0 K/uL 0.0-0.2 [...] i.cardiac measurement (mass/v olume) < ng/mL <0.028 BMP - 12/06/19 10:25 Anion Gap 14 6-14 BUN 21 mg/dL 5-25 Calcium 9.3 mg/dL 8.3-10.4 Chloride 105 mmol/L 95-114 CO2 27 mEq/L 22-33 Creat 0.78 mg/dL 0.50-1.50 eGFR 71 mL/min/1.73m2 >59 Glucose 111 mg/dL 70-110 [place] 297 280-295 Potassium 4.3 mmol/L 3.5-5.3 Sodium 142 mmol/L 134-148 Peripheral Smear - 12/06/19 18:03 Peripheral smear Sent to [facility] Pathology for review Complete blood count (CBC) with automate d white blood cell (WBC) differential - 12/06/19 18:03 Blood leukocytes automated count (number/volume) 7.0 10*3/uL 4.3-11.0 Blood erythrocytes automated count (number/volume) 4.54 10*6/uL 4.35-5.85 Venous blood hemoglobin measurement (mass/volume) 12.3 g/dL 11.5-16.0 Blood hematocrit (volume fraction) 40 % 35-52 Automated erythrocyte mean corpuscular volume 88 [ foz_us] 80-99 Automated erythrocyte mean corpuscular h emoglobin (mass per erythrocyte) 27 pg 25-34 Automated erythrocyte mean corpuscular h emoglobin concentration measurement (mass/volume) 31 g/dL 32-36 Automated erythrocyte distribution width ratio 14. 7 % 10.0- 14.5 Automated blood platelet count (count/volume) 124 10*3/uL 130-400 Automated blood platelet mean volume measurement 11.3 [foz_us] 7.4-10.4 Automated blood neutrophils/100 leukocytes 72 % 42-75 Automated blood lymphocytes/100 leukocytes 16 % 12-44 Blood monocytes/100 leukocytes 9 % 0-12 Automated blood eosinophils/100 leukocytes 3 % 0-10 Automated blood basophils/100 leukocytes 0 % 0-10 Blood neutrophils automated count (number/volume) 5.0 10*3 1.8-7.8 Blood lymphocytes automated count (number/volume) 1.1 10*3 1.0-4.0 Blood monocytes automated count (number/volume) 0. 6 10*3 0.0-1.0 Automated eosinophil count 0.2 10*3/uL 0 .0-0.3 Automated blood basophil count (count/volume) 0.0 10*3/uL 0.0-0.1 Manual absolute plasma cell count - 11/15 01/31 18:03 Blood monocytes/100 leukocytes 7 % NRG Manual blood segmented neutrophils/100 leukocytes 69 % NRG Blood band neutrophils/100 leukocytes 0 % NRG Manual blood lymphocytes/100 leukocytes 18 % NRG Manual eosinophils/100 leukocytes in nose 4 % NRG Manual blood basophils/100 leukocytes 2 % NRG Blood erythrocyte morphology finding identification NORMAL NRG Automated reticulocyte percentage - 11/15 01/31 18:03 Blood reticulocytes count (number/volume) 67 10*9/ L 24-90 Blood reticulocytes/100 erythrocytes 1.39 % 0.50-2.40 Microalbumin - 04/22/20 10:36 Microalb 50.0 mg/L 0.0-20.0 Complete blood count (CBC) with automate d white blood cell (WBC) differential - 05/23/20 19:15 Blood leukocytes automated count (number/volume) 8.8 10*3/uL 4.3-11.0 Blood erythrocytes automated count (number/volume) 5.08 10*6/uL 4.35-5.85 Venous blood hemoglobin measurement (mass/volume) 14.1 g/dL 11.5-16.0 Blood hematocrit (volume fraction) 44 % 35-52 Automated erythrocyte mean corpuscular volume 87 [ foz_us] 80-99 Automated erythrocyte mean corpuscular h emoglobin (mass per erythrocyte) 28 pg 25-34 Automated erythrocyte mean corpuscular h emoglobin concentration measurement (mass/volume) 32 g/dL 32-36 Automated erythrocyte distribution width ratio 15. 2 % 10.0- 14.5 Automated blood platelet count (count/volume) 136 10*3/uL 130-400 Automated blood platelet mean volume measurement 9.6 [foz_us] 7.4-10.4 Automated blood neutrophils/100 leukocytes 72 % 42-75 Automated blood lymphocytes/100 leukocytes 17 % 12-44 Blood monocytes/100 leukocytes 8 % 0-12 Automated blood eosinophils/100 leukocytes 2 % 0-10 Automated blood basophils/100 leukocytes 0 % 0-10 Blood neutrophils automated count (number/volume) 6.4 10*3 1.8-7.8 Blood lymphocytes automated count (number/volume) 1.5 10*3 1.0-4.0 Blood monocytes automated count (number/volume) 0. 7 10*3 0.0-1.0 Automated eosinophil count 0.2 10*3/uL 0 .0-0.3 Automated blood basophil count (count/volume) 0.0 10*3/uL 0.0-0.1 PT panel in platelet poor plasma by coag ulation assay - 05/23/20 19:15 Prothrombin time (PT) in platelet poor plasma by coagu lation assay 12.6 s 12.2-14.7 INR in platelet poor plasma or blood by coagulation as say 0.9 0.8-1.4 Comprehensive metabolic panel - 05/23/20 19:15 Serum or plasma sodium measurement (moles/volume) 141 mmol/L 135-145 Serum or plasma potassium measurement (moles/volume) 4.9 mmol/L 3.6-5.0 Serum or plasma chloride measurement (moles/volume) 105 mmol/L 98-107 Carbon dioxide 23 mmol/L 21-32 Serum or plasma anion gap determination (moles/volume) 13 mmol/L 5-14 Serum or plasma urea nitrogen measurement (mass/volume ) 22 mg/dL 7-18 Serum or plasma creatinine measurement (mass/volume) 0.85 mg/dL 0.60-1.30 Serum or plasma urea nitrogen/creatinine mass ratio 26 NRG Serum or plasma creatinine measurement w ith calculation of estimated glomerular filtration rate > NRG Serum or plasma glucose measurement (mass/volume) 71 mg/dL 70-105 Serum or plasma calcium measurement (mass/volume) 9.9 mg/dL 8.5-10.1 Serum or plasma total bilirubin measurement (mass/volu me) 0.4 mg/dL 0.1-1.0 Serum or plasma alkaline phosphatase jennifer surement (enzymatic activity/volume) 54 U/L 40-136 Serum or plasma aspartate aminotransfera se measurement (enzymatic activity/volume) 21 U/L 5-34 Serum or plasma alanine aminotransferase measurement (enzymatic activity/volume) 19 U/L 0-55 Serum or plasma protein measurement (mass/volume) 7.5 g/dL 6.4-8.2 Serum or plasma albumin measurement (mass/volume) 4.4 g/dL 3.2-4.5 CALCIUM CORRECTED 9.6 mg/dL 8.5-10.1 Encounters ACCT No. Visit Date/Time Discharge Status Pt. Type Provider Facility Loc./Unit Complaint [id number] 04/22/2020 13:05:00 04/22/2020 23:59 :00 DIS KM Delarosa [id number] 04/22/2020 10:36:00 04/22/2020 23:59 :00 DIS KM Delarosa [id number] 03/27/2020 12:21:00 03/27/2020 23:59 :00 DIS Outpatient KM MARINO [id number] 03/26/2020 15:15:00 03/26/2020 23:59 :00 DIS Outpatient KM MARINO [id number] 12/06/2019 11:59:00 12/06/2019 23:59 :00 DIS Outpatient KM MARINO [id number] 12/06/2019 09:56:00 12/06/2019 23:59 :00 DIS Outpatient KM MARINO [id number] 10/18/2019 13:05:00 10/18/2019 23:59 :00 DIS Outpatient KM MARINO [id number] 10/18/2019 08:30:00 10/18/2019 23:59 :00 DIS Outpatient KM MARINO [id number] 10/06/2019 18:40:00 10/06/2019 21:00: 00 [id number] 10:16:00 10/02/2019 23:59: 00 DIS Outpatient ADENIKE MARINOHEL [id number] 09/18/2019 11:48:00 09/18/2019 23:59: 00 DIS Outpatient ADENIKE MARINOHEL [id number] 09/18/2019 10:45:00 09/18/2019 23:59: 00 DIS Outpatient ADENIKE MARINOHEL [id number] 09/04/2019 08:00:00 09/04/2019 23:59: 00 DIS Outpatient ADENIKE MARINOHEL [id number] 08/24/2019 15:57:00 08/24/2019 23:59: 00 DIS Outpatient Isabel Muñoz [id number] 07/26/2019 09:30:00 07/26/2019 23:59: 00 DIS Outpatient Isabel Muñoz [id number] 06/27/2019 09:30:00 06/27/2019 23:59: 00 DIS Outpatient ADENIKE MARINOHEL [id number] 06/07/2019 11:18:00 06/07/2019 23:59: 00 DIS Outpatient ADENIKE MARINOHEL [id number] 03/01/2019 11:20:00 03/01/2019 23:59: 00 DIS Outpatient ADENIKE MARINOHEL [id number] 08/31/2018 13:12:00 08/31/2018 23:59: 00 DIS Outpatient JAMILA KM [id number] 08/31/2018 11:04:00 08/31/2018 23:59: 00 DIS Outpatient ADENIKE MARINOHEL [id number] 02/15/2018 13:31:00 02/15/2018 23:59: 00 DIS Outpatient KM MARINO [id number] 10/04/2017 13:36:00 10/04/2017 23:59: 00 DIS Outpatient EDWIN DE LEON [id number] 04/27/2017 00:00:00 06/14/2017 09:45: 00 DIS Outpatient KM MARINO [id number] 06/13/2017 10:50:00 06/13/2017 23:59: 00 DIS Outpatient KM MARINO [id number] 04/22/2017 10:38:00 04/22/2017 23:59: 00 DIS Outpatient KM MARINO [id number] 12/17/2016 09:03:00 12/17/2016 23:59: 00 DIS Outpatient KM MARINO [id number] 12/13/2016 13:53:00 12/13/2016 23:59: 00 DIS Outpatient KM MARINO [id number] 12/03/2016 10:30:00 12/03/2016 23:59: 00 DIS Outpatient Isabel Muñoz [id number] 10/03/2019 15:13:37 Document Registration [id number] 06/06/2019 14:00:00 Document Registration [id number] 03/01/2019 10:30:00 Document Registration [id number] 01/10/2019 14:30:00 Document Registration [id number] 12/26/2018 11:00:00 Document Registration [id number] 08/31/2018 10:40:00 Document Registration [id number] 07/28/2018 08:40:00 Document Registration [id number] 04/05/2018 13:20:00 Document Registration [id number] 02/23/2018 15:10:00 Document Registration [id number] 02/15/2018 09:30:00 Document Registration [id number] 10/03/2017 09:30:00 Document Registration [id number] 08/31/2017 09:10:00 Document Registration [id number] 05/13/2020 13:51:00 020 23:59:59 CLS Outpatient BERNA KIM MD [facility] ONC [id number] 01/25/2020 10:15:00 020 00:01:00 DIS Outpatient MACK PETERSON MD [facility] CR TAVR [id number] 12/17/2019 10:26:00 020 00:01:00 DIS Outpatient MACK PETERSON MD [facility] CR TAVR [id number] 12/06/2019 18:03:00 020 23:59:59 CLS Outpatient KM MARINO MD [facility] [id number] 10/20/2019 22:57:00 019 12:41:00 DIS Inpatient ROD MD, WILLIAMS Timothy [facility] 4TH CHEST PAIN [id number] 06/11/2019 19:28:00 019 21:09:00 DIS Emergency JOHNNY MATHEWS [facility] ER CP [id number] 04/12/2018 09:41:00 018 13:24:00 DIS Outpatient DEEPA CORDERO MD [facility] SDC SCREENING, HX OF POLYPS , REFLUX [id number] 04/11/2018 15:26:00 018 15:50:00 DIS Outpatient DEEPA CORDERO MD [facility] PREOP COLONOSCOPY/EGD [id number] 09/07/2017 12:25:00 017 23:59:59 CLS Preadmit ZAKIYA PULIDO MD [facility] RAD LUMBAR SPONDYLOSIS W/RA DICULOPATHY [id number] 01/03/2016 07:48:00 016 09:23:00 DIS Emergency HOSSEIN CHESTER, RACHEL Beltran [facility] ER DIZZINESS,NAUSEA [id number] 10/10/2015 21:05:00 015 05:52:00 DIS Outpatient JAMILA CHESTER, KM Marx [facility] SLEEP CRESENCIO,SNORING,CHOKING,HT N, [id number] 02/10/2015 07:46:00 015 14:22:00 DIS Emergency LEANDRA CHESTER, BRIANA Schaefer [facility] ER NECK/UPPER BACK /JAW PAIN [id number] 01/29/2014 09:46:00 014 23:59:59 CLS Outpatient HUMPHREY CHESTER, KIRA Scherer [facility] CARD CAD,CP,DYSPNEA [id number] 05/23/2020 18:14:[address] Emergency RITESH GRAHAM APRN [facility] ER DIZZINESS [id number] 08/15/2018 11:00:00 08/15/2018 23:59:5 9 CLS Outpatient APOORVA NIEVES [facility] [id number] 08/31/2018 11:04:00 Document Registration
[2020-05-23 20:58] LABS: RBC,URINE RARE /HPF
[2020-05-23 20:59] LABS: BACTERIA,URINE FEW /HPF
[2020-05-23 21:05] VITALS: BP 127/53
== END 2020-05-23 21:06 | disposition home or self-care (01) ==
LOC: EDUNIT# 18:12 → ER 18:14
DX: R42 Dizziness and giddiness (principal); I48.0 Paroxysmal atrial fibrillation; J45.909 Unspecified asthma, uncomplicated; I25.10 Atherosclerotic heart disease of native coronary artery without angina pectoris; I10 Essential (primary) hypertension; K58.9 Irritable bowel syndrome, unspecified; K21.9 Gastro-esophageal reflux disease without esophagitis; E11.9 Type 2 diabetes mellitus without complications; Z79.01 Long term (current) use of anticoagulants; Z88.1 Allergy status to other antibiotic agents; Z88.2 Allergy status to sulfonamides; Z91.041 Radiographic dye allergy status; Z88.6 Allergy status to analgesic agent; Z88.5 Allergy status to narcotic agent; Z91.040 Latex allergy status; Z88.8 Allergy status to other drugs, medicaments and biological substances; Z87.820 Personal history of traumatic brain injury; Z85.42 Personal history of malignant neoplasm of other parts of uterus; Z82.49 Family history of ischemic heart disease and other diseases of the circulatory system
CPT/HCPCS: 36415; 70450; 80053; 81000; 85025; 85610; 87088

== ENCOUNTER 2020-06-16 03:06 | Emergency (ER) | payer MEDICARE, OTHER ==
[~2020-06-16] VITALS: Ht 157 cm; Wt 115.6 kg
[~2020-06-16 03:06] MED LIST changes: +HYDR-3923 PO
--- OUTSIDE RECORDS SUMMARY | 2020-06-16 03:13 | XMS REPORT | Encounter Summary ---
Author Author [facility] Organization [facility] Address Unknown Phone Unavailable Care Team Providers Care Dredge Pump Operator Name Role Phone PCP Unavailable Encounter Details Care Team Description Date Type Department 12/08/2012 [facility] OP INFUSION Encounter [address] [place] [id number] Social History Date Tobacco Use Types Packs/Day Years Used Never Assessed Sex Assigned at Date Recorded Not on file documented as of this encounter Plan of Treatment Not on filedocumented as of this encounter Visit Diagnoses Not on filedocumented in this encounter
--- OUTSIDE RECORDS SUMMARY | 2020-06-16 03:13 | XMS REPORT | Summary of Care ---
Author Author [email or web address] [email or web address] Organization [facility] [place] Address Unknown Phone Unavailable Care Team Providers Care Security Software Engineer Name Role Phone DR. PRASAD ORTEGA DO PCP Encounter [facility] [phone] Date(s): 06/06/20 - 06/07/20 [facility] [address] [id number] Encounter Diagnosis Right sided abdominal pain (Discharge Diagnosis) - 06/07/20 Nausea (Discharge Diagnosis) - 06/07/20 Headache (Discharge Diagnosis) - 06/07/20 Diabetes mellitus (Discharge Diagnosis) - 06/07/20 Neck pain (Discharge Diagnosis) - 06/07/20 Degenerative disc disease, cervical (Discharge Diagnosis) - 06/07/20 Discharge Disposition: Home - 01 Attending Physician: JESSE CHAVARRIA DO Admitting Physician: JESSE CHAVARRIA DO Referring Physician: JESSE CHAVARRIA DO Vital Signs Most recent to 1 oldest [Reference Range]: Vital Signs Routine Assessment Status/Type (06/07/20 8:00 AM) Temperature 98.9 DegF [96.8-99.7 DegF] (06/06/20 11:02 PM) Temp Method Temporal (06/06/20 11:02 PM) Heart Rate 54 bpm (06/07/20 8:00 AM) Respiratory Rate 17 br/min [15-20 br/min] (06/07/20 8:00 AM) Blood Pressure 150/65 mmHg [90-180/50-90 mmHg] (06/07/20 8:00 AM) NIBP MAP [65 mmHg] 85 mmHg (06/07/20 8:00 AM) NIBP MAP Calc [65 93 mmHg mmHg] (06/07/20 8:00 AM) Problem List Condition Effective Dates Status Health Status Informan t Asthma Active NOS(Confirmed) Chest 08/10/12 Active pain(Confirmed) DM (diabetes Active mellitus)(Confirmed) DX: VERTIGO 06/01/08 Active ORTHOSTATIC.(Confirm ed) Gastritis(Confirmed) Active HTN(Confirmed) Active Hyperlipidemia LDL Active goal < 100(Confirmed) CRESENCIO on Active CPAP(Confirmed) Allergies, Adverse Reactions, Alerts Substance Reaction Severity Status ampicillin Active codeine Active erythromycin Active simvastatin Active cephalosporins Active Sulfa drugs Active Keflex Active Zocor Active Brevital Sodium Active Contrast Dye Active Latex Active Nickel Active Tape Active Zetia Active Cymbalta Active Medications Cro[place]on 5 mg-325 mg oral tablet 1 TAB, PO, Q6H (Every 6 hours), # 15 TAB, 0 Refill(s), not to exceed 8 tablets/d ay, Indication: Severe Pain Start Date: 06/07/20 Status: Ordered Zofran 4 mg oral tablet 1 TAB, PO, Q8H (Every 8 hours), # 20 TAB, 0 Refill(s), Indication: Nausea/Vomiti ng Start Date: 06/07/20 Status: Ordered Results Most recent to 1 oldest [Reference Range]: Est CrCL (CG) 70.0 mL/min 1 *NA* (06/07/20 4:50 AM) Microscopic? No (06/07/20 5:05 AM) Culture? No (06/07/20 5:05 AM) Total CPK [26-192 74 Units/L Units/L] (06/07/20 4:50 AM) Glucose [70-100 91 mg/dL mg/dL] (06/07/20 4:50 AM) Neutrophils Abs 6.0 x10'3/microL [1.4-7.2 (06/07/20 4:50 AM) x10'3/microL] Lymphocytes Abs 1.6 x10'3/microL [1.2-3.4 (06/07/20 4:50 AM) x10'3/microL] Monocytes Abs 0.7 x10'3/microL [0.1-0.6 *HI* x10'3/microL] (06/07/20 4:50 AM) Eosinophils Abs 0.2 x10'3/microL [0.0-0.5 (06/07/20 4:50 AM) x10'3/microL] Basophils Abs 0.1 x10'3/microL [0.0-0.2 (06/07/20 4:50 AM) x10'3/microL] GFR (CKD-EPI) 75.4 mL/min/1.73 m2 2 [>=60.0 mL/min/1.73 (06/07/20 4:50 AM) m2] UA Spec Type Clean Catch *NA* (06/07/20 5:05 AM) Immature 2 % Granulocytes % [0-0 *HI* %] (06/07/20 4:50 AM) Immature Grans Abs 0.2 x10'3/microL [0.0-0.0 *HI* x10'3/microL] (06/07/20 4:50 AM) Troponin T QuaNT 22 ng/L High Sensitivity *HI* [<=14 ng/L] (06/07/20 4:50 AM) AGAP [3-16 mmol/L] 16 mmol/L (06/07/20 4:50 AM) Albumin Level 4.2 g/dL [3.5-5.2 g/dL] (06/07/20 4:50 AM) Alk Phos [40-130 51 Inter. Units/L Inter. Units/L] (06/07/20 4:50 AM) ALT(SGPT) [0-33 16 Inter. Units/L Inter. Units/L] (06/07/20 4:50 AM) AST [0-40 Units/L] 17 Units/L (06/07/20 4:50 AM) Basophils % [0-3 %] 1 % (06/07/20 4:50 AM) Bili Total [0.0-1.2 0.4 mg/dL mg/dL] (06/07/20 4:50 AM) BUN [8-20 mg/dL] 20 mg/dL (06/07/20 4:50 AM) Calcium [8.6-10.2 9.7 mg/dL mg/dL] (06/07/20 4:50 AM) Chloride [98-107 91 mmol/L mmol/L] *LOW* (06/07/20 4:50 AM) CO2 [22-29 mmol/L] 24 mmol/L (06/07/20 4:50 AM) Creatinine [0.7-1.2 0.8 mg/dL mg/dL] (06/07/20 4:50 AM) Eosinophils % [0-7 2 % %] (06/07/20 4:50 AM) Hct [35-47 %] 44 % (06/07/20 4:50 AM) Hgb [12.0-16.0 g/dL] 13.3 g/dL (06/07/20 4:50 AM) Lactic Acid Lvl 0.9 mmol/L [0.5-2.0 mmol/L] (06/07/20 5:07 AM) Lipase [13-60 28 Units/L Units/L] (06/07/20 4:50 AM) Lymphocytes % [13-43 18 % %] (06/07/20 4:50 AM) Magnesium [1.6-2.6 2.1 mg/dL mg/dL] (06/07/20 4:50 AM) MCH [27-34 pg] 28 pg (06/07/20 4:50 AM) MCHC [30-36 g/dL] 30 g/dL (06/07/20 4:50 AM) MCV [81-99 fL] 92 fL (06/07/20 4:50 AM) Monocytes % [0-13 %] 8 % (06/07/20 4:50 AM) MPV [8.3-12.4 fL] 9.5 fL (06/07/20 4:50 AM) Neutrophils % [44-76 68 % %] (06/07/20 4:50 AM) Platelet [140-400 129 x10'3/microL x10'3/microL] *LOW* (06/07/20 4:50 AM) Potassium [3.5-5.1 3.9 mmol/L mmol/L] (06/07/20 4:50 AM) RBC [3.90-5.60 4.79 x10'6/microL x10'6/microL] (06/07/20 4:50 AM) RDW [<=16.4 %] 14.4 % (06/07/20 4:50 AM) Sodium [136-145 131 mmol/L mmol/L] *LOW* (06/07/20 4:50 AM) Total Protein 6.6 g/dL [6.0-8.0 g/dL] (06/07/20 4:50 AM) UA Bili [Negative] Negative (06/07/20 5:05 AM) UA Blood [Negative] Negative (06/07/20 5:05 AM) UA Color Yellow (06/07/20 5:05 AM) UA Glucose [Negative 250 mg/dL mg/dL] *ABN* (06/07/20 5:05 AM) UA Ketones [Negative Negative mg/dL mg/dL] (06/07/20 5:05 AM) UA Leuk Est Negative [Negative] (06/07/20 5:05 AM) UA Nitrite Negative [Negative] (06/07/20 5:05 AM) UA pH [5.0-8.0] 5.5 (06/07/20 5:05 AM) UA Protein [Negative Negative mg/dL mg/dL] (06/07/20 5:05 AM) UA Spec Grav 1.020 [1.001-1.030] (06/07/20 5:05 AM) UA Urobilinogen 0.2 EU per dL [0.2-1.0 EU per dL] (06/07/20 5:05 AM) WBC [4.0-11.0 8.8 x10'3/microL x10'3/microL] (06/07/20 4:50 AM) 1Result Comment: Estimated Creatinine Clearance calculated based on Cockcroft-Gault formula using: Height 157.48 Weight 116 Estimated Creatinine Clearance Cockcroft Gault is utilized by the Pharmacy to as sist in determining medication dosage based on kidney function. Multiple factors determine normal ranges, please contact the Pharmacy with questions. 2Result Comment: GFR calculated based on CKD-EPI Creatinine Equation (2009). Age(years) Average GFR 20-29 116 mL/min/1.73 m^2 30-39 107 mL/min/1.73 m^2 40-49 99 mL/min/1.73 m^2 50-59 93 mL/min/1.73 m^2 60-69 85 mL/min/1.73 m^2 70+ 75 mL/min/1.73 m^2 Acceptable GFR =>60 mL/min/1.73 m^2 Chronic Kidney Disease <60 mL/min/1.73 m^2 Kidney Failure <15 mL/min/1.73 m^2 Immunizations No data available for this section Procedures No data available for this section Social History No data available for this section Functional Status No data available for this section Assessment and Plan No data available for this section Hospital Discharge Instructions No data available for this section
--- OUTSIDE RECORDS SUMMARY | 2020-06-16 03:13 | XMS REPORT | Encounter Summary ---
Author Author [facility] Organization [facility] Address Unknown Phone Unavailable Care Team Providers Care Net Application Support Specialist Name Role Phone PCP Unavailable Encounter Details Care Team Description Date Type Department 01/12/2013 [facility] OP INFUSION Encounter [address] [place] [phone] Social History Date Tobacco Use Types Packs/Day Years Used Never Assessed Sex Assigned at Date Recorded Not on file documented as of this encounter Plan of Treatment Not on filedocumented as of this encounter Visit Diagnoses Not on filedocumented in this encounter
--- OUTSIDE RECORDS SUMMARY | 2020-06-16 03:13 | XMS REPORT | Encounter Summary ---
Author Author [facility] Organization [facility] Address Unknown Phone Unavailable Care Team Providers Care Server Administrator Name Role Phone PCP Unavailable Encounter Details Care Team Description Date Type Department 01/26/2013 [facility] OP INFUSION Encounter [address] [place] [phone] Social History Date Tobacco Use Types Packs/Day Years Used Never Assessed Sex Assigned at Date Recorded Not on file documented as of this encounter Plan of Treatment Not on filedocumented as of this encounter Visit Diagnoses Not on filedocumented in this encounter
--- OUTSIDE RECORDS SUMMARY | 2020-06-16 03:13 | XMS REPORT | Encounter Summary ---
Author Author [facility] Organization [facility] Address Unknown Phone Unavailable Care Team Providers Care Corporate Staff Accountant Name Role Phone PCP Unavailable Encounter Details Care Team Description Date Type Department 12/22/2012 [facility] OP INFUSION Encounter [address] [place] [phone] Social History Date Tobacco Use Types Packs/Day Years Used Never Assessed Sex Assigned at Date Recorded Not on file documented as of this encounter Plan of Treatment Not on filedocumented as of this encounter Visit Diagnoses Not on filedocumented in this encounter
--- OUTSIDE RECORDS SUMMARY | 2020-06-16 03:13 | XMS REPORT | Clinical Summary ---
Author Organization Unknown Address Unknown Phone Unavailable Care Team Providers Care Laborer Sawmill Name Role Phone PP Unavailable Allergies Comments [...] Assigned at Date Recorded Not on file Plan of Treatment Not on file Results Not on filefrom Last 3 Months
--- OUTSIDE RECORDS SUMMARY | 2020-06-16 03:13 | XMS REPORT | Clinical Summary ---
Author Author [facility] Organization [facility] Address Unknown Phone Unavailable Care Team Providers Care Call Center Assistant Name Role Phone Unverified, Unverified Md PCP Unavailable Ayse Yoo DO Unavailable Source Comments Some departments are not documenting in the electronic medical record. If you d o not see the information that you expected, contact Release of Information in [facility] [employer] Information Management department at [phone] for further assistan ce in locating additional records.[facility] Allergies Comments Active Allergy Reactions Severity [...] Comments Vital Sign 124/64 11/29/2012 1:28 PM HAT CLEANER Blood Pressure 87 11/29/2012 1:28 PM HAT CLEANER Pulse 36.7 C (98 F) 11/29/2012 1:28 PM HAT CLEANER Temperature 18 11/29/2012 1:28 PM HAT CLEANER Respiratory Rate 96% 11/29/2012 1:28 PM HAT CLEANER RA Oxygen Saturation - - Inhaled Oxygen Concentration 117.5 kg (259 lb) 11/29/2012 1:28 PM HAT CLEANER Weight 154.9 cm (5' 1") 11/29/2012 1:28 PM HAT CLEANER Height 48.94 11/29/2012 1:28 PM HAT CLEANER Body Mass Index Plan of Treatment Health Maintenance Due Date Last Done Comments DTAP/TDAP VACCINES (1 - 01/29/1960 Tdap) HEPATITIS C SCREENING 01/29/1960 PHYSICAL (COMPREHENSIVE) 01/29/1960 EXAM SHINGLES RECOMBINANT 01/29/1992 VACCINE (1 of 2) OSTEOPOROSIS 2007 SCREENING/MONITORING PNEUMONIA (PPSV23) 2007 VACCINE (1 of 1 - PPSV23) INFLUENZA VACCINE 08/14/2020 Results Not on filefrom Last 3 Months
--- OUTSIDE RECORDS SUMMARY | 2020-06-16 03:13 | XMS REPORT | Encounter Summary ---
Author Author [facility] Organization [facility] Address Unknown Phone Unavailable Care Team Providers Care Mail Messenger Name Role Phone PCP Unavailable Encounter Details Care Team Description Date Type Department 11/24/2012 [facility] OP INFUSION Encounter [address] [place] [phone] Social History Date Tobacco Use Types Packs/Day Years Used Never Assessed Sex Assigned at Date Recorded Not on file documented as of this encounter Plan of Treatment Not on filedocumented as of this encounter Visit Diagnoses Not on filedocumented in this encounter
[2020-06-16] MEDS ORDERED: ASPIRIN 81 MG CHEW (CHILDREN'S ASA) ONE (03:14)
--- OUTSIDE RECORDS SUMMARY | 2020-06-16 03:15 | XMS REPORT | Continuity of Care Document ---
Author Organization Unknown Address Unknown Phone Unavailable Allergies Active Description Code Type Severity Reaction Onset Reported/Identified Relationship to Patient Clinical Status Yes ASPIRIN, BUFFERED MILD MILD Yes CODEINE SULFATE U NKNOWN UNKNOWN Yes GABAPENTIN MODERATE MODERATE Yes HEXACHLOROPHENE ANALOGUES UNKNOWN UNKNOWN Yes KEFLEX UNKNOWN UNKNOWN Yes PENICILLINS UNKNOWN UNKNOWN Yes [id number] REDUCTASE INHIBITORS UNKNOWN OTHER Yes [id number] REDUCTASE INHIBITORS UNKNOWN UNKNOWN Yes SULFA (SULFONAMIDE ANTIBIOTICS) UNKNOWN UNKNOWN Yes ampicillin [id number] Drug Allerg y Unknown N/A 02/10/2015 Yes aspirin [id number] Drug Allergy Unknown N/A 02/10/[id number] ug Allergy Unknown N/A 02/10/2015 Yes codeine [id number] Drug Allergy Unknown N/A 02/10/2015 Yes duloxetine [id number] Drug Allerg y Unknown N/A 02/10/2015 Yes erythromycin base [id number] Drug Allergy Unknown N/A 02/10/2015 Yes ezetimibe [id number] Drug Allergy Unknown N/A 02/10/2015 Yes Iodinated Contrast Media [id number] Drug Allergy Unknown N/A 02/10/2015 Yes Iodinated Contrast Media - IV Dye [id number] 545368 Drug Allergy Unknown N/A 015 Yes Iodinated Contrast- Oral and IV Dye [id number] Drug Allergy Unknown N/A 02/10/2015 Yes latex [id number] Drug Allergy Unknown N/A 02/10/2015 Yes methohexital [id number] Drug Allergy Unknown N/A 02/10/2015 Yes nickel [id number] Drug Allergy Unknown N/A 02/10/2015 Yes simvastatin [id number] Drug Aller gy Unknown N/A 02/10/2015 Yes Sulfa (Sulfonamide Antibiotics) [id number] 0491 Drug Allergy Unknown N/A 015 Medications There is no data. Problems Date Dx Coded Attending Type Code Diagnosis Diagnosed By 02/10/2015 KIRA YIN MD Ot 414.00 02/10/2015 KIRA YIN MD Ot 424.1 02/10/2015 KIRA YIN MD Ot 786.09 02/10/2015 KIRA YIN MD Ot 786.50 02/10/2015 BRIANA MOBLEY MD Ot 414.01 CORONARY ATHEROSCLEROSIS OF EEK CORON 02/10/2015 BRIANA MOBLEY MD Ot 723.0 [...] MD, Ot I25.10 ATHSCL HEART DISEASE OF [place] CORONARY 04/12/2018 DEEPA CORDERO MD, Ot J45.90 [...] NE 04/12/2018 DEEPA CORDERO MD Ot Z79.84 INTERMEDIATE (CURRENT) USE OF ORAL HYPOGLYC 04/12/2018 DEEPA CORDERO MD, Ot Z79.89 9 OTHER CUSTOM BOW MAKER (CURRENT) DRUG THERAPY 04/12/2018 DEEPA CORDERO MD, [...] MD, Ot I25.10 ATHSCL HEART DISEASE OF EE[place] CORONARY 04/13/2018 DEEPA CORDERO MD, Ot J45.90 [...] NE 04/13/2018 DEEPA CORDERO MD, Ot Z79.84 INTERMEDIATE (CURRENT) USE OF ORAL HYPOGLYC 04/13/2018 DEEPA CORDERO MD, Ot Z79.89 9 OTHER CUSTOM BOW MAKER (CURRENT) DRUG THERAPY 04/13/2018 DEEPA CORDERO MD, [...] ACUT E BRONCHITIS, UNSPECIFIED 01/10/2019 W J44.1 [employer]CR[employer]ARY [employer] OBSTRUCTIVE PULMONARY DISEASE WITH (ACUTE) EXACERBATION [...] MATHEWSP Ot I25.10 ATHSCL HEART DISEASE OF [place] CORONARY 06/11/2019 JOHNNY MATHEWSP Ot J45.909 UNSPECIFIED ASTHMA, UNCOMPLICATED 06/11/2019 JOHNNY MATHEWSP Ot K21.9 GASTRO-ESOPHAGEAL REFLUX DISEASE WITHOUT 06/11/2019 JOHNNY MATHEWS MICROBIOLOGICAL LAB TECHNICIAN Ot K58.9 IRRITABLE BOWEL SYNDROME WITHOUT DIARRHE 06/11/2019 JOHNNY MATHEWS MICROBIOLOGICAL LAB TECHNICIAN Ot R07.89 OTHER CHEST PAIN 06/11/2019 JOHNNY [...] JOHNNY MATHEWSP Ot Z88.8 ALLERGY STATUS TO [facility] DRUG/MEDS/BIOL SUB 06/11/2019 JOHNNY MATHEWS MICROBIOLOGICAL LAB TECHNICIAN Ot Z90.49 ACQUIRED ABSENCE OF OTHER SPECIFIED PART 06/11/2019 JOHNNY MATHEWSP Ot Z90.710 ACQUIRED ABSENCE OF BOTH CERVIX AND UTER 06/11/2019 JOHNNY MATHEWS MICROBIOLOGICAL LAB TECHNICIAN Ot Z90.89 ACQUIRED ABSENCE OF OTHER ORGANS 06/11/2019 JOHNNY MATHEWSP Ot Z91.040 LATEX ALLERGY STATUS 06/11/2019 JOHNNY MATHEWSP Ot Z91.041 RADIOGRAPHIC DYE ALLERGY STATUS 06/11/2019 JOHNNY MATHEWS MICROBIOLOGICAL LAB TECHNICIAN Ot Z95.9 PRESENCE OF CARDIAC AND VASCULAR IMPLANT 06/14/2019 BISI, JOHNNY MICROBIOLOGICAL LAB TECHNICIAN Ot E11.9 TYPE 2 DIABETES MELLITUS WITHOUT COMPLIC 06/14/2019 BISIJOHNNY Matthews MICROBIOLOGICAL LAB TECHNICIAN Ot G47.30 SLEEP APNEA, UNSPECIFIED 06/14/2019 BISI, JOHNNY MICROBIOLOGICAL LAB TECHNICIAN Ot I10 ESSENTIAL (PRIMARY) HYPERTENSION 06/14/2019 BISIJOHNNY Matthews MICROBIOLOGICAL LAB TECHNICIAN Ot I25.10 ATHSCL HEART DISEASE OF [place] CORONARY 06/14/2019 BISIJOHNNY MatthewsP Ot J45.909 UNSPECIFIED ASTHMA, UNCOMPLICATED 06/14/2019 BISI, JOHNNY MICROBIOLOGICAL LAB TECHNICIAN Ot K21.9 GASTRO-ESOPHAGEAL REFLUX DISEASE WITHOUT 06/14/2019 BISI, JOHNNY MICROBIOLOGICAL LAB TECHNICIAN Ot K58.9 IRRITABLE BOWEL SYNDROME WITHOUT DIARRHE 06/14/2019 BISIJOHNNY Matthews MICROBIOLOGICAL LAB TECHNICIAN Ot R07.89 OTHER CHEST PAIN 06/14/2019 BISI, JOHNNY MICROBIOLOGICAL LAB TECHNICIAN Ot Z82.49 FAMILY HX OF ISCHEM HEART DIS AND OTH DI 06/14/2019 BISIJOHNNY MatthewsP Ot Z87.820 PERSONAL HISTORY OF TRAUMATIC BRAIN INJU 06/14/2019 BISIJOHNNY Matthews MICROBIOLOGICAL LAB TECHNICIAN Ot Z88.1 ALLERGY STATUS TO OTHER ANTIBIOTIC AGENT 06/14/2019 BISI, JOHNNY MICROBIOLOGICAL LAB TECHNICIAN Ot Z88.2 ALLERGY STATUS TO SULFONAMIDES STATUS 06/14/2019 BISI, JOHNNY MICROBIOLOGICAL LAB TECHNICIAN Ot Z88.5 ALLERGY STATUS TO NARCOTIC AGENT STATUS 06/14/2019 BISI, JOHNNY MICROBIOLOGICAL LAB TECHNICIAN Ot Z88.6 ALLERGY STATUS TO ANALGESIC AGENT STATUS 06/14/2019 BISI, JOHNNY MICROBIOLOGICAL LAB TECHNICIAN Ot Z88.8 ALLERGY STATUS TO OT DRUG/MEDS/BIOL SUB 06/14/2019 BISI, JOHNNY MICROBIOLOGICAL LAB TECHNICIAN Ot Z90.49 ACQUIRED ABSENCE OF OTHER SPECIFIED PART 06/14/2019 BISI, JOHNNY MICROBIOLOGICAL LAB TECHNICIAN Ot Z90.710 ACQUIRED ABSENCE OF BOTH CERVIX AND UTER 06/14/2019 BISI, JOHNNY MICROBIOLOGICAL LAB TECHNICIAN Ot Z90.89 ACQUIRED ABSENCE OF OTHER ORGANS 06/14/2019 BISIJOHNNY Matthews MICROBIOLOGICAL LAB TECHNICIAN Ot Z91.040 LATEX ALLERGY STATUS 06/14/2019 BISI, JOHNNY MICROBIOLOGICAL LAB TECHNICIAN Ot Z91.041 RADIOGRAPHIC DYE ALLERGY STATUS 06/14/2019 BISI, JOHNNY MICROBIOLOGICAL LAB TECHNICIAN Ot Z95.9 PRESENCE OF CARDIAC AND VASCULAR [...] 2 DIABETES MELLITUS WITHOUT COMPLIC 10/21/2019 WILLIAMS VELASOC MD, Ot E66. 01 MORBID (SEVERE) OBESITY [...] 10/21/2019 WILLIAMS VELASCO MD, Ot Z79. 02 CUSTOM BOW MAKER (CURRENT) USE OF ANTITHROMBOTI 10/21/2019 WILLIAMS VELASCO MD, Ot Z79. 84 CUSTOM BOW MAKER (CURRENT) USE OF ORAL HYPOGLYC 10/21/2019 WILLIAMS [...] 49 OTHER PRIMARY THROMBOCYTOPENIA 05/20/2020 BERNA KIM MD, Ot E66. 01 MORBID (SEVERE) OBESITY DUE TO EXCESS CA 05/20/2020 BERNA KIM MD Ot E78. 5 HYPERLIPIDEMIA, UNSPECIFIED 05/20/2020 BERNA KIM MD Ot I51. 9 HEART DISEASE, UNSPECIFIED 05/20/2020 BERNA KIM MD Ot Z90. 49 ACQUIRED ABSENCE OF OTHER SPECIFIED PART 05/20/2020 BERNA KIM MD Ot Z90.710 ACQUIRED ABSENCE OF BOTH CERVIX AND UTER 05/26/2020 RITESH GRAHAM APRN Ot E11 .9 TYPE 2 DIABETES MELLITUS WITHOUT COMPLIC 05/26/2020 RITESH GRAHAM APRN Ot I10 ESSENTIAL (PRIMARY) HYPERTENSION 05/26/2020 RITESH GRAHAM APRN Ot I25.10 ATHSCL HEART DISEASE OF [place] CORONARY 05/26/2020 RITESH GRAHAM APRN Ot I48 .0 PAROXYSMAL ATRIAL FIBRILLATION 05/26/2020 RITESH GRAHAM APRN, Ot J45.909 UNSPECIFIED ASTHMA, UNCOMPLICATED 05/26/2020 RITESH GRAHAM APRN Ot K21 .9 GASTRO-ESOPHAGEAL REFLUX DISEASE WITHOUT 05/26/2020 RITESH GRAHAM APRN Ot K58 .9 IRRITABLE BOWEL SYNDROME WITHOUT DIARRHE 05/26/2020 RITESH GRAHAM APRN Ot R42 DIZZINESS AND GIDDINESS 05/26/2020 RITESH GRAHAM APRN Ot Z79.01 CUSTOM BOW MAKER (CURRENT) USE OF ANTICOAGULANT 05/26/2020 RITESH GRAHAM APRN Ot Z82.49 FAMILY HX OF ISCHEM HEART DIS AND OTH DI 05/26/2020 RITESH GRAHAM APRN Ot Z85.42 PERSONAL HISTORY OF MALIGNANT NEOPLASM O 05/26/2020 RITESH GRAHAM APRN Ot Z87.820 PERSONAL HISTORY OF TRAUMATIC BRAIN INJU 05/26/2020 RITESH GRAHAM APRN Ot Z88 .1 ALLERGY STATUS TO OTHER ANTIBIOTIC AGENT 05/26/2020 RITESH GRAHAM APRN Ot Z88 .2 ALLERGY STATUS TO SULFONAMIDES STATUS 05/26/2020 RITESH GRAHAM APRN Ot Z88 .5 ALLERGY STATUS TO NARCOTIC AGENT STATUS 05/26/2020 RITESH GRAHAM APRN Ot Z88 .6 ALLERGY STATUS TO ANALGESIC AGENT STATUS 05/26/2020 RITESH GRAHAM APRN Ot Z88 .8 ALLERGY STATUS TO OTH DRUG/MEDS/BIOL SUB 05/26/2020 RITESH GRAHAM APRN Ot Z91.040 LATEX ALLERGY STATUS 05/26/2020 RITESH GRAHAM APRN Ot Z91.041 RADIOGRAPHIC DYE ALLERGY STATUS 05/29/2020 RITESH GRAHAM APRN Ot E11 .9 TYPE 2 DIABETES MELLITUS WITHOUT COMPLIC 05/29/2020 RITESH GRAHAM APRN Ot I10 ESSENTIAL (PRIMARY) HYPERTENSION 05/29/2020 RITESH GRAHAM APRN Ot I25.10 ATHSCL HEART DISEASE OF EE[place] CORONARY 05/29/2020 RITESH GRAHAM APRN Ot I48 .0 PAROXYSMAL ATRIAL FIBRILLATION 05/29/2020 RITESH GRAHAM APRN Ot J45.909 UNSPECIFIED ASTHMA, UNCOMPLICATED 05/29/2020 RITESH GRAHAM APRN Ot K21 .9 GASTRO-ESOPHAGEAL REFLUX DISEASE WITHOUT 05/29/2020 RITESH GRAHAM APRN Ot K58 .9 IRRITABLE BOWEL SYNDROME WITHOUT DIARRHE 05/29/2020 RITESH GRAHAM APRN Ot R42 DIZZINESS AND GIDDINESS 05/29/2020 RITESH GRAHAM APRN Ot Z79.01 INTERMEDIATE (CURRENT) USE OF ANTICOAGULANT 05/29/2020 RITESH GRAHAM APRN Ot Z82.49 FAMILY HX OF ISCHEM HEART DIS AND OTH DI 05/29/2020 RITESH GRAHAM APRN Ot Z85.42 PERSONAL HISTORY OF MALIGNANT NEOPLASM O 05/29/2020 RITESH GRAHAM APRN Ot Z87.820 PERSONAL HISTORY OF TRAUMATIC BRAIN INJU 05/29/2020 RITESH GRAHAM APRN Ot Z88 .1 ALLERGY STATUS TO OTHER ANTIBIOTIC AGENT 05/29/2020 RITESH GRAHAM APRN Ot Z88 .2 ALLERGY STATUS TO SULFONAMIDES STATUS 05/29/2020 RITESH GRAHAM APRN Ot Z88 .5 ALLERGY STATUS TO NARCOTIC AGENT STATUS 05/29/2020 RITESH GRAHAM APRN Ot Z88 .6 ALLERGY STATUS TO ANALGESIC AGENT STATUS 05/29/2020 RITESH GRAHAM APRN Ot Z88 .8 ALLERGY STATUS TO OTH DRUG/MEDS/BIOL SUB 05/29/2020 RITESH GRAHAM APRN Ot Z91.040 LATEX ALLERGY STATUS 05/29/2020 RITESH GRAHAM APRN Ot Z91.041 RADIOGRAPHIC DYE ALLERGY STATUS Procedures There is no data. Results Test [...] 31.2 g/dL 32.0-36.0 MCV 88.1 fL 80.0-97.0 Posey% 8.0 % 0.0-12.0 MPV 10.2 fL 7.4-10.0 Luis% 68.8 % 37.0-80.0 Plt 183 K/uL 150-400 RBC 4.29 M/uL 3.60-5.00 RDW 14.5 % 11.6-14.8 WBC 6.28 K/uL 5.00-10.00 Luis 4.32 K/uL 2.00-6.90 Posey 0.5 K/uL 0.0-0.9 Baso 0.0 K/uL 0.0-0.2 [...] - 12/06/19 18:03 Peripheral smear Sent to [facility] Pathology for review Complete blood count (CBC) [...] g/dL 3.2-4.5 CALCIUM CORRECTED 9.6 mg/dL 8.5-10.1 Complete urinalysis with reflex to cultu re - 05/23/20 20:39 Urine color determination YELLOW NRG Urine clarity determination CLEAR NR G Urine pH measurement by test strip 5.5 5-9 Specific gravity of urine by test strip 1.025 1.016-1.022 Urine protein assay by test strip, semi-quantitative NEGATIVE NEGATIVE Urine glucose detection by automated test strip 1+ NEGATIVE Erythrocytes detection in urine sediment by light micr oscopy NEGATIVE NEGATIVE Urine ketones detection by automated test strip NE GATIVE NEGATIVE Urine nitrite detection by test strip NEGATIVE NEGATIVE Urine total bilirubin detection by test strip NEGA TIVE NEGATIVE Urine urobilinogen measurement by automated test strip (mass/volume) 0.2 mg/dL < = 1.0 Urine leukocyte esterase detection by dipstick 1+ NEGATIVE Automated urine sediment erythrocyte cou nt by microscopy (number/high power field) RARE NRG Automated urine sediment leukocyte count by microscopy (number/high power field) [HPF] NRG Bacteria detection in urine sediment by light microsco py FEW NRG Squamous epithelial cells detection in u rine sediment by light microscopy 2-5 NRG Crystals detection in urine sediment by light microsco py NONE NRG Casts detection in urine sediment by light microscopy NONE NRG Mucus detection in urine sediment by light microscopy NEGATIVE NRG Complete urinalysis with reflex to culture YES NRG Bacterial urine culture - 05/23/20 20:39 Bacterial urine culture 3 OR MORE NRG COLONY COUNT 60,000 cfu/ml NRG SUSCEPTIBILITY GRAM POSITIVE ISOLATES; SUGGESTING NRG MRSA SCREEN PROBABLE COLLECTION COTAMINATION WITH NRG RAPID ID SKIN SONIA. NO SUSCEPTIBILITY PERFORMED. NRG COVID19 - 05/26/20 11:21 COVID19 NEGATIVE test performed at [facility] Encounters ACCT No. Visit Date/Time Discharge Status Pt. Type Provider Facility Loc./Unit Complaint [id number] 05/26/2020 14:45:00 05/26/2020 23:59 :00 DIS Outpatient KM MARINO [id number] 05/26/2020 11:13:00 05/26/2020 23:59 :00 DIS Outpatient KM MARINO [id number] 04/22/2020 13:05:00 04/22/2020 23:59 :00 DIS Outpatient KM MARINO [id number] 04/22/2020 10:36:00 04/22/2020 23:59 :00 DIS Outpatient KM MARINO [id number] 03/27/2020 12:21:00 03/27/2020 23:59 :00 DIS Outpatient KM MARINO [id number] 03/26/2020 15:15:00 03/26/2020 23:59 :00 DIS Outpatient KM MARINO [id number] 12/06/2019 11:59:00 12/06/2019 23:59 :00 DIS Outpatient KM MARINO [id number] 12/06/2019 09:56:00 12/06/2019 23:59 :00 DIS Outpatient KM MARINO [id number] 10/18/2019 13:05:00 10/18/2019 23:59 :00 DIS Outpatient KM MARINO [id number] 10/18/2019 08:30:00 10/18/2019 23:59 :00 DIS Outpatient KM MARINO [id number] 10/06/2019 18:40:00 10/06/2019 21:00: 00 [id number] 10:16:00 10/02/2019 23:59: 00 DIS Outpatient KM MARINO [id number] 09/18/2019 11:48:00 09/18/2019 23:59: 00 DIS Outpatient KM MARINO [id number] 09/18/2019 10:45:00 09/18/2019 23:59: 00 DIS Outpatient KM MARINO [id number] 09/04/2019 08:00:00 09/04/2019 23:59: 00 DIS Outpatient KM MARINO [id number] 08/24/2019 15:57:00 08/24/2019 23:59: 00 DIS Outpatient Isabel Muñoz [id number] 07/26/2019 09:30:00 07/26/2019 23:59: 00 DIS Outpatient Isabel Muñoz [id number] 06/27/2019 09:30:00 06/27/2019 23:59: 00 DIS Outpatient [place] [id number] 06/07/2019 11:18:00 06/07/2019 23:59: 00 DIS [place] [id number] 03/01/2019 11:20:00 03/01/2019 23:59: 00 DIS [place] [id number] 08/31/2018 13:12:00 08/31/2018 23:59: 00 DIS [place] [id number] 08/31/2018 11:04:00 08/31/2018 23:59: 00 DIS Outpatient [place], [place] [id number] 02/15/2018 13:31:00 02/15/2018 23:59: 00 DIS Outpatient KM MARINO [id number] 10/04/2017 13:36:00 10/04/2017 23:59: 00 DIS Outpatient MOISES EDWIN [id number] 04/27/2017 00:00:00 06/14/2017 09:45: 00 DIS Outpatient KM MARINO [id number] 06/13/2017 10:50:00 06/13/2017 23:59: 00 DIS Outpatient KM MARINO [id number] 04/22/2017 10:38:00 04/22/2017 23:59: 00 DIS Outpatient KM MARINO [id number] 12/17/2016 09:03:00 12/17/2016 23:59: 00 DIS Outpatient KM MARINO [id number] 12/13/2016 13:53:00 12/13/2016 23:59: 00 DIS Outpatient KM MARINO [id number] 12/03/2016 10:30:00 12/03/2016 23:59: 00 DIS Outpatient Isabel Muñoz [id number] 10/03/2019 15:13:37 Document Registration [id number] 06/06/2019 14:00:00 Document Registration [id number] 03/01/2019 10:30:00 Document Registration [id number] 01/10/2019 14:30:00 Document Registration [id number] 12/26/2018 11:00:00 Document Registration [id number] 08/31/2018 10:40:00 Document Registration [id number] 07/28/2018 08:40:00 Document Registration [id number] 04/05/2018 13:20:00 Document Registration [id number] 02/23/2018 15:10:00 Document Registration [id number] 02/15/2018 09:30:00 Document Registration [id number] 10/03/2017 09:30:00 Document Registration [id number] 08/31/2017 09:10:00 Document Registration [id number] 05/23/2020 18:14:00 21:06:00 DIS Outpatient RITESH GRAHAM APRN [facility] ER DIZZINESS [id number] 05/13/2020 13:51:00 23:59:59 CLS Outpatient BERNA KIM MD [facility] ONC [id number] 01/25/2020 10:15:00 00:01:00 DIS Outpatient MACK PETERSON MD [facility] CR TAVR [id number] 12/17/2019 10:26:00 00:01:00 DIS Outpatient MACK PETERSON MD [facility] CR TAVR [id number] 12/06/2019 18:03:00 23:59:59 CLS Outpatient KM MARINO MD [facility] GIR [id number] 10/20/2019 22:57:00 019 12:41:00 DIS Inpatient WILLIAMS VELASCO MD [facility] 4TH CHEST PAIN [id number] 06/11/2019 19:28:00 019 21:09:00 DIS Emergency BISI, JOHNNY MICROBIOLOGICAL LAB TECHNICIAN [facility] ER CP [id number] 04/12/2018 09:41:00 018 13:24:00 DIS Outpatient DEEPA CORDERO MD [facility] SDC SCREENING, HX OF POLYPS , REFLUX [id number] 04/11/2018 15:26:00 018 15:50:00 DIS Outpatient DEEPA CORDERO MD [facility] PREOP COLONOSCOPY/EGD [id number] 09/07/2017 12:25:00 017 23:59:59 CLS Preadmit ASHOK CHESTER, ZAKIYA Beaver [facility] RAD LUMBAR SPONDYLOSIS W/RA DICULOPATHY [id number] 01/03/2016 07:48:00 016 09:23:00 DIS Emergency HOSSEIN CHESTER, RACHEL Beltran [facility] ER DIZZINESS,NAUSEA [id number] 10/10/2015 21:05:00 015 05:52:00 DIS Outpatient JAMILA CHESTER, KM Marx [facility] SLEEP CRESENCIO,SNORING,CHOKING,HT N, [id number] 02/10/2015 07:46:00 015 14:22:00 DIS Emergency LEANDRA CHESTER, BRIANA Schaefer [facility] ER NECK/UPPER BACK /JAW PAIN [id number] 01/29/2014 09:46:00 014 23:59:59 CLS Outpatient HUMPHREY CHESTER, KIRA Scherer [facility] CARD CAD,CP,DYSPNEA [id number] 08/15/2018 11:00:00 08/15/2018 23:59:5 9 CLS Out[facility] [id number] 08/31/2018 11:04:00 Document Registration
--- NOTE | 2020-06-16 03:28 | ED Chest Pain ---
General Stated Complaint: CP Source: patient, EMS History of Present Illness Date Seen by Provider: Jun 16, 2020 Time Seen by Provider: 03:08 Initial Comments PT ARRIVES VIA EMS FROM HOME C/O CHEST PAIN THAT WOKE HER UP AT 0200 THIS MORNING PT TOOK 1 NTG AND IT HELPED, BUT DID NOT TAKE ANOTHER ONE EMS GAVE ANOTHER NTG AND IT HELPED ALOT, DID NOT GIVE ANOTHER ONE, PT STATES ELSI N IS BETTER, BUT NOT GONE --NO IV BY EMS RATES PAIN 2/10 AT THIS TIME C/O NAUSEA WITH THE PAIN--EMS GAVE ZOFRAN, AND NAUSEA IS GONE EMS ALSO GAVE FENTANYL 50 MCG PT DENIES SHORTNESS OF BREATH, BUT EMS REPORTS THAT PT WAS DYSPNEIC SITTING ON THE SIDE OF THE BED WHEN THEY ARRIVED. BUT PT WAS INSISTENT ON WALKING OUT TO THE AMBULANCE WITH HER WALKER. PT STATES NOTHING WORSENS PAIN, BUT EMS REPORT THAT PT C/O PAIN IN CHEST WITH EVERY BUMP IN THE ROAD. PT ALSO REPORTED TO THEM THAT PAIN MOVED AROUND ALL OVER HER CHEST NO SWELLING IN LEGS/FEET OR PAIN IN CALVES NO SWEATS NO PALPITATIONS NO DIZZINESS OR SYNCOPE ACCUCHECK 127 BY EMS PT STATES THAT THE PAIN GOES FROM HER RIGHT POSTERIOR NECK DOWN TO THE CENTER OF HER CHEST ALSO STATES THAT EARLIER THIS EVENING SHE HAD RIGHT UPPER ABDOMINAL CRAMP, THAT WENT AWAY ON IT'S OWN TOOK A HYDROCODONE AND A TRAMADOL EARLIER THIS EVENING FOR NECK PAIN AND IT HELPED, BUT DID NOT TAKE ANYMORE. PT STATES SHE HAS BEEN HAVING CHEST PRESSURE OFF AND ON FOR OVER A WEEK WAS SEEN IN THE ER AT [facility] 1 WEEK AGO FOR CHEST PAIN AND NECK PAIN ( HAS CHRONIC NECK PAIN) -SENT HOME. 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 PT IS TO HAVE A STRESS TEST TOMORROW. 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 PT DEVELOPED ATRIAL FIBRILLATION AFTER THE SURGERY, BUT COVERED TO SINUS RHYTHM AND HAS NOT HAD ANY FURTHER EPISODES, PER PT. PT IS ON ELIQUIS NO COUGH, OR FEVER OR RECENT ILLNESS NO SICK CONTACTS OR KNOWN EXPOSURE TO COVID 19 LIVES AT HOME WITH HER PCP: DR. MARINO HAT BLOCKER: [facility] BERKOWITZ Allergies and Home Medications Allergies Coded Allergies: Cephalosporins (Unverified Allergy, Unknown, 02/10/15) Iodinated Contrast Media (Unverified Allergy, Unknown, 02/10/15) Sulfa (Sulfonamide Antibiotics) (Unverified Allergy, Unknown, 02/10/15) ampicillin (Unverified Allergy, Unknown, 02/10/15) codeine (Unverified Allergy, Unknown, 02/10/15) duloxetine (Unverified Allergy, Unknown, 02/10/15) erythromycin base (Unverified Allergy, Unknown, 02/10/15) ezetimibe (Unverified Allergy, Unknown, 02/10/15) latex (Unverified Allergy, Unknown, 02/10/15) methohexital (Unverified Allergy, Unknown, 02/10/15) nickel (Unverified Allergy, Unknown, 02/10/15) simvastatin (Unverified Allergy, Unknown, 02/10/15) Home Medications Acyclovir 400 Mg Tablet, 400 MG PO BID, (Reported) Albuterol Sulfate 1 Puff Puff, 2 PUFF IH Q4H PRN for SHORTNESS OF BREATH, (Reported) 1 PUFF = 90 MCG Amiodarone HCl 200 Mg Tablet, 200 MG PO DAILY, (Reported) Amlodipine Besylate 2.5 Mg Tablet, 2.5 MG PO HS, (Reported) Budesonide 0.5 Mg/2 Ml Ampul.neb, 0.5 MG IH PRN, (Reported) Budesonide/Formoterol Fumarate 10.2 Gm Hfa.aer.ad, 2 PUFF IH BID PRN, (Reported) Buspirone HCl Unknown Strength Tablet, 20 MG PO DAILY, (Reported) Glimepiride 2 Mg Tablet, 2 MG PO DAILY, (Reported) Glimepiride 4 Mg Tablet, 4 MG PO HS, (Reported) Hyoscyamine Sulfate 0.125 Mg Tab.rapdis, 0.125 MG PO PRN, (Reported) Isosorbide Mononitrate 30 Mg Tab.er.24h, 15 MG PO TID, (Reported) Levothyroxine Sodium 100 Mcg Tablet, 100 MCG PO DAILY, (Reported) Lisinopril 40 Mg Tablet, 40 MG PO DAILY, (Reported) Loperamide HCl 2 Mg Capsule, 2 MG PO PRN, (Reported) Magnesium Carbonate/Al Hydrox 1 Each Tab.chew, 1 EACH PO PRN, (Reported) Montelukast Sodium 10 Mg Tablet, 10 MG PO DAILY, (Reported) Nitroglycerin 0.4 Mg Tab.subl, 0.4 MG SL UD PRN for CHEST PAIN, (Reported) Pantoprazole Sodium 40 Mg Tablet.dr, 40 MG PO BID, (Reported) Rivaroxaban 15 Mg Tablet, 15 MG PO HS, (Reported) Simethicone 80 Mg Tab.chew, 80 MG PO TIDWM PRN for GAS Prescribed by: CHANDNI LEIVA on 10/21/19 0956 Sucralfate 1 Gm Tablet, 1 GM PO HS, (Reported) Patient Home Medication List Home Medication List Reviewed: Yes Review of Systems Review of Systems Constitutional: no symptoms reported; No chills, No diaphoresis, No dizziness, No fever EENTM: No Symptoms Reported Respiratory: See HPI Cardiovascular: See HPI, Chest Pain; Denies Edema, Denies Irregular Heart Rate, Denies Lightheadedness, Denies Palpitations, Denies Syncope Gastrointestinal: See HPI, Nausea; Denies Vomiting Genitourinary: No Symptoms Reported Musculoskeletal: see HPI, neck pain Skin: no symptoms reported Psychiatric/Neurological: No Symptoms Reported Endocrine: No Symptoms Reported Hematologic/Lymphatic: No Symptoms Reported Past Jcnwgda-Slmprg-Mvodbl Hx Past Med/Social Hx: Reviewed and Corrections made Patient Social History Alcohol Use: Denies Use Recreational Drug Use: No Smoking Status: Never a Smoker Recent Foreign Travel: No Contact w/Someone Who Travel: No Recent Hopitalizations: No Immunizations Up To Date Tetanus Booster (TDap): Less than 5yrs Date of Pneumonia Vaccine: Oct 21, 2018 Date of Influenza Vaccine: Sep 04, 2019 Seasonal Allergies Seasonal Allergies: Yes Past Medical History Surgeries: Yes (UMBILICAL HERNIA;TAVR 08/2019;MULTIPLE CARDIAC CATHS--NO INTERVENTION) Adenoidectomy, Appendectomy, Cardiac, Eye Surgery, Gallbladder, Hysterectomy, Oophorectomy, Tonsillectomy, Valve Replacement Respiratory: Yes Asthma, Sleep Apnea Currently Using CPAP: Yes Cardiac: Yes (LBBB;TAVR ( BOVINE) 08/2019; AFIB POST TAVR-SPONT. CONVERSION. 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 0.0oz. [age]yo; 45.00 BMI Method:Stated General Appearance: No Apparent Distress, Obese HEENT: Other (RIGHT CORNEA CLOUDY, RIGHT ORBIT ATROPHIC AND VERY WATERY. NO VISION ON RIGHT. ) Neck: Full Range of Motion, Carotid Bruit (FAINT BILATERALLY), Tender Lateral (TENDER RIGHT POSTERIOR/LATERAL NECK ) Respiratory: Normal Breath Sounds, No Accessory Muscle Use, No Respiratory Distress, Other (MILD MID AND LEFT UPPER CHEST TENDERNESS. 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 Norm as Tested Skin: Normal Color, Warm/Dry Progress/Results/Core Measures Results/Orders Lab Results Laboratory Tests Test 06/16/20 03:09 Range/Units White Blood Count 8.2 4.3-11.0 10^3/uL Red Blood Count 4.88 4.35-5.85 10^6/uL Hemoglobin 13.6 11.5-16.0 G/DL Hematocrit 43 35-52 % Mean Corpuscular Volume 88 80-99 FL Mean Corpuscular Hemoglobin 28 25-34 PG Mean Corpuscular Hemoglobin Concent 32 32-36 G/DL Red Cell Distribution Width 15.2 H 10.0-14.5 % Platelet Count 107 L 130-400 10^3/uL Mean Platelet Volume 11.2 H 7.4-10.4 FL Neutrophils (%) (Auto) 70 42-75 % Lymphocytes (%) (Auto) 16 12-44 % Monocytes (%) (Auto) 10 0-12 % Eosinophils (%) (Auto) 4 0-10 % Basophils (%) (Auto) 0 0-10 % Neutrophils # (Auto) 5.8 1.8-7.8 X 10^3 Lymphocytes # (Auto) 1.3 1.0-4.0 X 10^3 Monocytes # (Auto) 0.8 0.0-1.0 X 10^3 Eosinophils # (Auto) 0.3 0.0-0.3 10^3/uL Basophils # (Auto) 0.0 0.0-0.1 10^3/uL Prothrombin Time 19.6 H 12.2-14.7 SEC INR Comment 1.6 H 0.8-1.4 Activated Partial Thromboplast Time 34 24-35 SEC Sodium Level 141 135-145 MMOL/L Potassium Level 5.5 H 3.6-5.0 MMOL/L Chloride Level 106 98-107 MMOL/L Carbon Dioxide Level 22 21-32 MMOL/L Anion Gap 13 5-14 MMOL/L Blood Urea Nitrogen 24 H 7-18 MG/DL Creatinine 0.92 0.60-1.30 MG/DL Estimat Glomerular Filtration Rate 59 BUN/Creatinine Ratio 26 Glucose Level 119 H 70-105 MG/DL Calcium Level 9.4 8.5-10.1 MG/DL Corrected Calcium 9.3 8.5-10.1 MG/DL Magnesium Level 2.3 1.6-2.4 MG/DL Total Bilirubin 0.5 0.1-1.0 MG/DL Aspartate Amino Transf (AST/SGOT) 27 5-34 U/L Alanine Aminotransferase (ALT/SGPT) 19 0-55 U/L Alkaline Phosphatase 55 40-136 U/L Total Creatine Kinase 57 29-168 U/L Creatine Kinase MB 1.5 <6.6 NG/ML Myoglobin 39.9 10.0-92.0 NG/ML Troponin I < 0.028 <0.028 NG/ML B-Type Natriuretic Peptide 33.9 <100.0 PG/ML Total Protein 7.1 6.4-8.2 GM/DL Albumin 4.1 3.2-4.5 GM/DL Amylase Level 52 25-125 U/L Lipase 49 8-78 U/L My Orders Orders - PRASAD WILLETT DO Aspirin Chewable Tablet (Baby Aspirin Ch (06/16/20 03:14) Ed Iv/Invasive Line Start (06/16/20 03:16) Ekg Tracing (06/16/20 03:16) O2 (06/16/20 03:16) Monitor-Rhythm Ecg Trace Only (06/16/20 03:16) Cbc With Automated Diff (06/16/20 03:16) Magnesium (06/16/20 03:16) Chest 1 View, Ap/Pa Only (06/16/20 03:16) Ekg Tracing (06/16/20 03:16) Comprehensive Metabolic Panel (06/16/20 03:16) Myoglobin Serum (06/16/20 03:16) Protime With Inr (06/16/20 03:16) Partial Thromboplastin Time (06/16/20 03:16) O2 (06/16/20 03:16) Monitor-Rhythm Ecg Trace Only (06/16/20 03:16) Ed Iv/Invasive Line Start (06/16/20 03:16) Creatine Kinase (06/16/20 03:16) Creatine Kinase Mb (06/16/20 03:16) Lipase (06/16/20 03:16) Amylase (06/16/20 03:16) BNP (06/16/20 03:16) Aspirin Chewable Tablet (Baby Aspirin Ch (06/16/20 03:30) Nitroglycerin Ointment (Nitrobid Ointme (06/16/20 03:30) Troponin I (06/16/20 03:09) Medications Given in ED Current Medications Medications Dose Ordered Sig/Erica Route Start Time Stop Time Status Last Admin Dose Admin Ondansetron HCl 4 mg ONCE ONCE IVP 06/16/20 08:00 06/16/20 08:01 DC 06/16/20 07:58 4 MG Vital Signs/I&O 06/16/20 06/16/20 06/16/20 06/16/20 03:10 03:20 03:35 09:30 Temp 36.7 36.7 Pulse 79 61 Resp 14 15 B/P (MAP) 152/79 (103) 132/39 (103) Pulse Ox 98 94 98 O2 Delivery Room Air Nasal Cannula Nasal Cannula Nasal Cannula O2 Flow Rate 2.00 2.00 2.00 Progress Progress Note : Progress Note GIVEN ASPIRIN AND NITROPASTE--STATES PAIN IS DOWN TO A 1/10 NOW. LATER STATES PAIN IS GONE NO DETERIORATION IN PT'S CONDITION DURING ER STAY Initial ECG Impression Date: Jun 16, 2020 Initial ECG Impression Time: 03:12 Initial ECG Rate: 75 Initial ECG Rhythm: Normal Sinus (LBBB) EKG : EKG Time: 03:13 Rate: 77 Rhythm: Normal Sinus (LBBB) Diagnostic Imaging Comments CXR--CARDIOMEGALY WITH MILD VASCULAR CONGESTION--PENDING RADIOLOGIST REVIEW Reviewed: Reviewed by Me Departure Communication (Admissions) 0411--CALLED [facility]. WILL CALL BACK 0427--[facility] CALLED BACK. THEY ARE ON DIVERSION FOR MED-SURG BEDS, BUT WILL CHECK ON AVAILABILITY OF A STEP DOWN BED AND CALL ME BACK. 0450--[facility] CALLED BACK. WILL HAVE A BED AVAILABLE AFTER 0500, WILL CALL ME BACK. 0527--SPOKE WITH DR. ROLDAN. ACCEPTS PT FOR ADMIT. THEY WILL CALL BACK WITH BED ASSIGNMENT. EMS BEING CONTACTED FOR TRANSPORT. 0550--EMS WILL NOT TRANSPORT PT UNTIL AFTER 0800. CARE TURNED OVER TO DR. SANTAMARIA. Impression Primary Impression: Chest pain Disposition: XFER SHT-TRM HOSP Condition: Improved Transfer Transfer Reason: Patient preference (PT'S HAT BLOCKER AND HAS CARDIAC PROCEDURE SCHEDULED THERE TOMORROW) Transfer Facility: [facility] Method of Transfer: EMS Departure-Patient Inst. Referrals: KM MARINO MD (PCP/Family) Primary Care Physician PRASAD WILLETT DO Jun 16, 2020 03:28
[2020-06-16] MEDS ORDERED: NITROGLYCERIN 2% OINT 1 GM UNIT DOSE PACKET TOP ONE (03:30)
[2020-06-16] MEDS ORDERED: ASPIRIN 81 MG CHEW (CHILDREN'S ASA) PO ONE (03:30)
[2020-06-16 03:32] LABS: BASOPHILS % (AUTO) 0 % (0-10); EOSINOPHILS # (AUTO) 0.3 10^3/uL (0.0-0.3); EOSINOPHILS % (AUTO) 4 % (0-10); HEMATOCRIT 43 % (35-52); HEMOGLOBIN 13.6 G/DL (11.5-16.0); LYMPHOCYTES # (AUTO) 1.3 X 10^3 (1.0-4.0); LYMPHOCYTES % (AUTO) 16 % (12-44); MEAN CORPUSCULAR HEMOGLOBIN 28 PG (25-34); MEAN CORPUSCULAR HGB CONC 32 G/DL (32-36); MEAN CORPUSCULAR VOLUME 88 FL (80-99); MEAN PLATELET VOLUME 11.2 FL (7.4-10.4); MONOCYTES # (AUTO) 0.8 X 10^3 (0.0-1.0); MONOCYTES % (AUTO) 10 % (0-12); NEUTROPHILS # (AUTO) 5.8 X 10^3 (1.8-7.8); NEUTROPHILS % (AUTO) 70 % (42-75); PLATELET COUNT 107 10^3/uL (130-400); RED CELL DISTRIBUTION WIDTH 15.2 % (10.0-14.5); WHITE BLOOD COUNT 8.2 10^3/uL (4.3-11.0)
[2020-06-16 03:42] LABS: ALBUMIN 4.1 GM/DL (3.2-4.5); CHLORIDE 106 MMOL/L (98-107); INR 1.6 (0.8-1.4); POTASSIUM 5.5 MMOL/L (3.6-5.0); PROTHROMBIN TIME PATIENT 19.6 SEC (12.2-14.7); SODIUM 141 MMOL/L (135-145)
[2020-06-16 03:43] LABS: AMYLASE 52 U/L (25-125); CALCIUM 9.4 MG/DL (8.5-10.1)
[2020-06-16 03:44] LABS: GLUCOSE 119 MG/DL (70-105); TOTAL PROTEIN 7.1 GM/DL (6.4-8.2)
[2020-06-16 03:45] LABS: CARBON DIOXIDE 22 MMOL/L (21-32)
[2020-06-16 03:46] LABS: BILIRUBIN,TOTAL 0.5 MG/DL (0.1-1.0)
[2020-06-16 03:47] LABS: ALKALINE PHOSPHATASE 55 U/L (40-136)
[2020-06-16 03:48] LABS: CREATININE SERUM 0.92 MG/DL (0.60-1.30); GFR ESTIMATED 59
[2020-06-16 03:49] LABS: BUN/CREATININE RATIO 26
[2020-06-16 03:51] LABS: ALANINE AMINOTRANSFERASE 19 U/L (0-55); MAGNESIUM 2.3 MG/DL (1.6-2.4)
[2020-06-16 03:52] LABS: CREATINE KINASE 57 U/L (29-168); LIPASE 49 U/L (8-78)
[2020-06-16 03:58] LABS: CREATINE KINASE MB 1.5 NG/ML (<6.6)
--- NOTE | 2020-06-16 04:40 | NUR ---
Pt's updated with pt's transfer status.
--- NOTE | 2020-06-16 05:32 | NUR ---
[facility] called for pt transfer.
--- NOTE | 2020-06-16 05:52 | NUR ---
[facility] states they can transfer at 0800.
--- NOTE | 2020-06-16 06:31 | NUR ---
Pt resting, updated with transfer status. [facility] will call with room assignment at 0700.
--- NOTE | 2020-06-16 07:05 | Diagnostic Imaging Report ---
HISTORY: Chest pain TECHNIQUE: Frontal view of the chest. COMPARISON: 10/20/2019 FINDINGS: Lung volumes are normal. There is haziness of the lung bases which is thought to be due to overlying soft tissue. There is mild central vascular congestion with mild cardiomegaly. No significant pleural effusion or pneumothorax is seen. There is aortic atherosclerosis. IMPRESSION: 1. Mild cardiomegaly with mild central vascular congestion. Dictated by: Dictated on workstation # [id number]
[2020-06-16] MEDS ORDERED: fentaNYL INJECTION 100 MCG/2 ML AMP IVP STA (07:53)
[2020-06-16] MEDS ORDERED: ONDANSETRON 4 MG/2 ML (SDV) Z0FRAN IVP ONE (08:00)
--- NOTE | 2020-06-16 08:10 | NUR ---
dispatch called for transfer at this time.
--- NOTE | 2020-06-16 08:12 | NUR ---
Attempted to call report to [facility]; no answer.
--- NOTE | 2020-06-16 08:15 | NUR ---
Spoke to via phone regarding room number and transfer to [facility].
--- NOTE | 2020-06-16 09:00 | NUR ---
Dispatch called again at this time. Dispatch reported truck is on its way.
--- NOTE | 2020-06-16 09:03 | NUR ---
Attempted to call report; line busy.
[2020-06-16 09:30] VITALS: BP 132/39
== END 2020-06-16 09:32 | disposition short-term general hospital (02) ==
LOC: EDUNIT# 03:06 → ER 03:07
DX: R07.9 Chest pain, unspecified (principal); I48.91 Unspecified atrial fibrillation; Z79.01 Long term (current) use of anticoagulants; I44.7 Left bundle-branch block, unspecified; J45.909 Unspecified asthma, uncomplicated; G47.30 Sleep apnea, unspecified; I25.10 Atherosclerotic heart disease of native coronary artery without angina pectoris; E78.00 Pure hypercholesterolemia, unspecified; I10 Essential (primary) hypertension; Z87.820 Personal history of traumatic brain injury; K21.9 Gastro-esophageal reflux disease without esophagitis; K44.9 Diaphragmatic hernia without obstruction or gangrene; M19.91 Primary osteoarthritis, unspecified site; E66.9 Obesity, unspecified; Z68.42 Body mass index [BMI] 45.0-49.9, adult; E11.9 Type 2 diabetes mellitus without complications; Z79.84 Long term (current) use of oral hypoglycemic drugs; Z85.42 Personal history of malignant neoplasm of other parts of uterus
CPT/HCPCS: 36415; 71045; 80053; 82150; 82550; 82553; 83690; 83735; 83874; 83880; 84484; 85025; 85610; 85730; 93005; 93041

== ENCOUNTER 2022-04-09 10:10 | Outpatient (RCR) | payer MEDICARE, OTHER ==
[~2022-04-09 10:10] MED LIST changes: -ACYC400T PO; +ACYC400T21 PO; -AMIO200T4 PO; +AMIO200T65 PO; -ISOS30TA3 PO; +ISOS30TA82 PO; -LISI40TA PO; +LISI40TA9 PO; +MONT-40 PO; -MONT10TA26 PO; -PANT40TA3 PO; +PANT40TA52 PO
== END 2022-04-13 | disposition home or self-care (01) ==
LOC: CR 10:10
PROVIDERS: ATTEND Internal Medicine Interventional Cardiology
DX: Z29.8 Encounter for other specified prophylactic measures (principal); Z95.5 Presence of coronary angioplasty implant and graft
CPT/HCPCS: 93798

== ENCOUNTER 2022-05-03 10:06 | Outpatient (RCR) | payer MEDICARE, OTHER | END 2022-05-13 | disposition home or self-care (01) | LOC: CR 10:06 | PROVIDERS: ATTEND Internal Medicine Interventional Cardiology | DX: Z29.8 Encounter for other specified prophylactic measures (principal); Z95.5 Presence of coronary angioplasty implant and graft | CPT/HCPCS: 93798 ==